=== PATIENT | female | born 1970 | race Caucasian/White ===

== ENCOUNTER 2020-05-24 16:00 | Outpatient (REF) | payer OTHER, SELFPAY ==
[2020-05-24 17:05] LABS: Creatinine Urine 204.63 mg/dL; Microalbum/Creatinine Ratio Ur 5.8 ug/mg cr
[2020-05-24 17:08] LABS: Alanine Aminotransferase 24 U/L (0-31); Albumin Level 4.6 g/dL (3.5-5.0); Alkaline Phosphatase 45 U/L (39-117); Anion Gap 13 (12-20); Aspartate Amino Transferase 21 U/L (5-31); Bilirubin Total 0.7 mg/dL (0.0-1.0); Blood Urea Nitrogen 17 mg/dL (9-16); Calcium 9.3 mg/dL (8.4-10.2); Carbon Dioxide 28 mmol/L (22-29); Chloride 103 mmol/L (96-108); Estimated Glomerular Filt Rate > 60; Glucose Random 84 mg/dL (60-115); Potassium 3.5 mmol/l (3.3-5.1); Sodium 140 mmol/L (135-145); Total Protein 7.6 g/dL (6.5-8.0)
== END 2020-05-24 16:01 | disposition home or self-care (01) ==
LOC: HO.LAB 16:00
PROVIDERS: PCP Family Medicine; Visit Provider Family Medicine
DX: I10 Essential (primary) hypertension (principal)
CPT/HCPCS: 80053; 82043

== ENCOUNTER 2020-12-01 14:09 | Outpatient (REF) | payer BC, SELFPAY ==
[2020-12-01 15:28] LABS: Alanine Aminotransferase 16 U/L (0-31); Albumin Level 4.4 g/dL (3.5-5.0); Alkaline Phosphatase 44 U/L (39-117); Anion Gap 12 (12-20); Aspartate Amino Transferase 16 U/L (5-31); Bilirubin Total 0.7 mg/dL (0.0-1.0); Blood Urea Nitrogen 14 mg/dL (9-16); Calcium 9.2 mg/dL (8.4-10.2); Carbon Dioxide 29 mmol/L (22-29); Chloride 104 mmol/L (96-108); Cholesterol 189 mg/dL; Estimated Glomerular Filt Rate > 60; Glucose Fasting 86 mg/dL (60-99); HDL Cholesterol 50 mg/dL; LDL Cholesterol Calculated 121 mg/dl; Potassium 3.6 mmol/L (3.3-5.1); Sodium 141 mmol/L (135-145); Total Protein 7.1 g/dL (6.5-8.0); Triglycerides 92 mg/dL
[2020-12-01 15:29] LABS: Creatinine Urine 155.72 mg/dL; Microalbum/Creatinine Ratio Ur 3.8 ug/mg cr
[2020-12-01 15:49] LABS: TSH reflex Free T4 < 0.01 uIU/mL (0.32-4.0)
[2020-12-01 16:26] LABS: Free T4 (Free Thyroxine) 0.88 ng/dL (0.71-1.85)
== END 2020-12-01 14:10 | disposition home or self-care (01) ==
LOC: HO.LAB 14:09
PROVIDERS: PCP Family Medicine; Visit Provider Family Medicine
DX: Z00.00 Encounter for general adult medical examination without abnormal findings (principal); I10 Essential (primary) hypertension
CPT/HCPCS: 36415; 80053; 80061; 82043; 84439; 84443

== ENCOUNTER 2021-01-10 14:35 | Outpatient (REF) | payer BC, SELFPAY ==
[2021-01-10 17:02] LABS: Vitamin D 25-OH Total 20.4 ng/mL (>30)
== END 2021-01-10 14:36 | disposition home or self-care (01) ==
LOC: HO.HMGCLDS 14:35
PROVIDERS: PCP Family Medicine; Visit Provider Family Medicine
DX: E55.9 Vitamin D deficiency, unspecified (principal)
CPT/HCPCS: 36415; 82306

== ENCOUNTER → 2021-01-18 07:02 | Outpatient (REF) | payer BC, SELFPAY ==
--- NOTE | 2021-01-18 07:07 | CA_ITS ---
Transthoracic Echocardiogram Patient (Last, First, Middle): Rosa Owens, Gender: Female Date of : 1970 Age: 50 Procedure Date: 01/18/2021 Procedure Type: Transthoracic Echocardiogram Location: OP Height: 165.1 cm Weight: 80.29 kg BSA: 1.88 m2 Heart Rate: bpm BP: 140 / 82 mmHg Commissioner Of Officials: KARINA Singh MD: Lupillo Pineda DO Symptoms: R00.2 - Palpitations Study Quality: Fair ECG Rhythm: Sinus Conclusions: - The left ventricular systolic function is normal. The visually estimated ejection fraction is between 60-65%. - No obvious valvular pathology seen on this study. Findings Left Ventricle Normal left ventricular cavity size. There is normal left ventricular wall thickness. The left ventricular systolic function is normal. The visually estimated ejection fraction is between 60-65%. There is no evidence of regional wall motion abnormalities. Diastolic function is normal for age. Right Ventricle Normal right ventricular cavity size and systolic function. Atria Both atria are normal in size. Aortic Valve There is a normal trileaflet aortic valve. There is no aortic valve stenosis. There is no aortic valve regurgitation. Mitral Valve The mitral valve appears normal. There is trace mitral valve regurgitation. There is no mitral valve stenosis. Pulmonic Valve The pulmonic valve is likely normal. Tricuspid Valve Normal tricuspid valve structure. There is trace tricuspid valve regurgitation. The pulmonary artery systolic pressure is normal. Great Vessels The aortic annulus, sinuses of valsalva, asc aorta, and aortic arch are normal in size. Venous The inferior vena cava is normal in size and collapses greater than 50% with inspiration. Pericardium/Pleural There is no evidence of pericardial effusion. Prior Study Comparison No prior study available for comparison. Recommendations, Care & Conclusions No obvious valvular pathology seen on this study. Measurements 2D Linear Measurements IVSd: 0.93 0.6-0.9/0.6-1.0 cm LVIDd: 4.47 3.9-5.3/4.2-5.9 cm LVIDd Index: 2.38 2.4-3.2/2.2-3.1 cm/m2 LVIDs: 2.99 2.0-3.6 cm LVPWd: 0.98 0.7-1.1 cm Ao Root: 3.10 2.1-3.5 cm LA Diam: 3.70 2.7-3.8/3.0-4.0 cm LAIDs Index: 1.97 1.5-2.3 cm/m2 LV Mass: 176.94 67-162/88-224 g LV Mass Index: 94.12 43-95/49-115 g/m2 LVOT Diam: 2.00 3.0+(-)1.3 cm 2D Systolic Function EF 4C: 62.10 >55% EF 2C: 68.90 >55% EF BiP: 65.60 >55% Mitral Valve MV Pk E: 0.86 MV PK A: 0.77 MV Decel Time: 223.00 E/A: 1.10 E'Lateral: 16.00 E'Medial: 10.30 E/E' Med: 8.30 E/E' Lat: 5.40 PHT: 65.00 MVA PHT: 3.38 Decel [place]: 3.84 Aortic Valve AoV Pk Russell: 1.51 AoV Mn Russell: 1.01 AoV VTI: 0.33 AoV Pk Grad: 9.00 Aov Mn Grad: 4.00 GOLDY Cont.VTI: 2.10 LVOT LVOT Pk Russell: 1.03 LVOT Mn Russell: 0.66 LVOT VTI: 0.22 LVOT Pk Grad: 4.00 LVOT Mn Grad: 2.00 LVOT Diam: 2.00 LVOT Area: 3.14 Diastolic Function MV Pk E: 0.86 MV Pk A: 0.77 E/A: 1.10 E'Medial: 10.30 E/E' Med: 8.30 E' Laterial: 16.00 E/E' Lat: 5.40 Right Ventricle TAPSE (mm): 2.40 Tricuspid Valve TR Pk Russell: 2.47 TR Pk Grad: 24.00 RA Press: 3.00 RVSP: 27.00 Great Vessels Aorta Ao Root-2D: 3.10 2.0-3.7 cm Ao Asc: 2.90 2.1-3.4 cm Ao Arch: 2.70 Updated in Other Vendor System with Status of Final Heriberto Lopez MD electronically signed on 01/20/2021 12:48:33 PM with status of Final
== END ==
LOC: HO.CARD 07:02
PROVIDERS: Visit Provider Hospitalist
DX: R00.2 Palpitations (principal)
CPT/HCPCS: 93306

== ENCOUNTER → 2021-01-25 11:14 | Outpatient (REF) | payer BC, SELFPAY ==
--- NOTE | 2021-01-25 11:17 | HM_ITS ---
Total monitoring. 4days and 3 hours. Underlying rhythm sinus. Minimum heart rate 54/Min. Maximum 130/Min. Average 76/Min. Only 6% rates above 100/Min. No atrial fibrillation or flutter. No AV blocks. No pauses. No ventricular tachycardia. Two supraventricular episodes, longest 11 beats. Rare PVCs at 1.3% burden. One morphology. Rare PACs at 0.07%. No patient events. MTDD
== END ==
LOC: HO.CARD 11:14
PROVIDERS: Visit Provider Nurse Practitioner Family
DX: R00.2 Palpitations (principal)
CPT/HCPCS: 93242

== ENCOUNTER → 2021-02-20 13:52 | Outpatient (BNVA) | payer BC, SELFPAY | PROVIDERS: PCP Family Medicine; Visit Provider Internal Medicine ==

== ENCOUNTER 2021-04-30 16:18 | Outpatient (REF) | payer BC, SELFPAY ==
--- NOTE | ~2021-04-30 | MM_ITS ---
EXAMINATION: MM SCREENING DIGITAL BREAST TOMOSYNTHESIS, BILATERAL CLINICAL INFORMATION: Screening. Asymptomatic. The lifetime risk of breast cancer based on the Tyrer-Cuzick Model is 12%. COMPARISON: Mammography: 01/20/2020, 01/14/2019, 01/08/2018 TECHNIQUE: Digital breast tomosynthesis is performed in both the craniocaudal and mediolateral oblique views along with computer-aided detection (CAD). Synthesized 2D images are generated from the tomosynthesis. FINDINGS: There are scattered areas of fibroglandular density (ACR BI-RADS breast composition Category b). There are no significant masses, abnormal calcifications, or other abnormalities. Fibroglandular distribution is similar to prior studies. No developing density or interval architectural abnormality. Skin contours are smooth. No significant changes. MM/MM tomosynthesis screening BI IMPRESSION: No mammographic evidence of malignancy. ASSESSMENT: BI-RADS 1: Negative RECOMMENDATION: Routine annual mammography screening. This patient's information was entered into a reminder system with a target due date for their next mammogram.
== END 2021-04-30 16:19 | disposition home or self-care (01) ==
LOC: HO.MAMMO 16:18
PROVIDERS: Visit Provider Family Medicine
DX: Z12.31 Encounter for screening mammogram for malignant neoplasm of breast (principal)
CPT/HCPCS: 77063; 77067

== ENCOUNTER 2022-02-14 13:40 | Outpatient (REF) | payer OTHER, SELFPAY ==
[2022-02-14 13:51] LABS: MANUAL DIFF FLAG NO
[2022-02-14 14:39] LABS: Basophils Absolute Auto 0.1 X10*3/uL (0.0-0.2); Basophils Percent Auto 0.7 % (0-2); Eosinophils Absolute Auto 0.2 X10*3/uL (0.0-0.4); Hematocrit 37.2 % (37.0-47.0); Hemoglobin 12.8 g/dl (12.0-16.0); Imm Gran Abs Auto 0.02 X10*3/uL (0.00-0.03); Imm Gran Pct Auto 0.3 % (0.0-0.4); Lymphocytes Absolute Auto 2.6 X10*3/uL (1.2-4.9); Lymphocytes Percent Auto 37.8 % (20-40); Mean Corpuscular HGB Conc 34.4 g/dl (31.0-35.0); Mean Corpuscular Hemoglobin 30.1 pg (27.0-33.0); Mean Corpuscular Volume 87.5 fL (80.0-98.0); Mean Platelet Volume 10.6 fL (9.4-12.3); Monocytes Absolute Auto 0.4 X10*3/uL (0.1-1.2); Monocytes Percent Auto 5.9 % (2-11); Neutrophils Absolute Auto 3.7 x10*3/uL (2.0-8.3); Neutrophils Percent Auto 52.3 % (45-73); Platelet Count 179 X10*3/uL (160-400); Red Blood Count 4.25 X10*6/uL (4.20-5.50); Red Cell Distribution Width 12.6 % (11.0-16.0)
[2022-02-14 15:47] LABS: Alanine Aminotransferase 19 U/L (0-31); Albumin Level 4.2 g/dL (3.5-5.0); Alkaline Phosphatase 49 U/L (39-117); Anion Gap 15 (12-20); Aspartate Amino Transferase 20 U/L (5-31); Bilirubin Total 0.8 mg/dL (0.0-1.0); Blood Urea Nitrogen 13 mg/dL (9-16); Carbon Dioxide 25 mmol/L (22-29); Chloride 101 mmol/L (96-108); Cholesterol 208 mg/dL; Estimated Glomerular Filt Rate > 60; Glucose Fasting 77 mg/dL (60-99); HDL Cholesterol 48 mg/dL; LDL Cholesterol Calculated 140 mg/dl; Potassium 3.4 mmol/L (3.3-5.1); Sodium 138 mmol/L (135-145); Total Protein 7.1 g/dL (6.5-8.0); Triglycerides 101 mg/dL
[2022-02-14 16:08] LABS: TSH reflex Free T4 0.09 uIU/mL (0.32-4.0)
[2022-02-14 16:47] LABS: Free T4 (Free Thyroxine) 0.87 ng/dL (0.71-1.85)
[2022-02-14 17:29] LABS: Appearance Urine Clear; Color Urine Yellow; Glucose Urine UA Negative (Negative); Leukocyte Esterase Urine Trace (Negative); Nitrite Urine Negative (Negative); PH 6.5 (5.0-8.0); Urine Blood Trace (Negative); Urine Ketones Negative (Negative); Urine Protein Negative (Neg-Trace)
[2022-02-14 17:31] LABS: Microalbumin Urine < 5.0 mg/L
[2022-02-14 18:23] LABS: Bacteria Urine 1+ (None Seen); Hyaline Casts Urine 0-2 /LPF (0-2); WBC Urine 0-5 /HPF (0-5)
== END 2022-02-14 13:41 | disposition home or self-care (01) ==
LOC: HO.LAB 13:40
PROVIDERS: Visit Provider Family Medicine
DX: Z00.00 Encounter for general adult medical examination without abnormal findings (principal); E55.9 Vitamin D deficiency, unspecified; I10 Essential (primary) hypertension
CPT/HCPCS: 36415; 80053; 80061; 81001; 82043; 82306; 84439; 84443; 85025

== ENCOUNTER 2022-05-02 15:43 | Outpatient (REF) | payer OTHER, SELFPAY ==
--- NOTE | ~2022-05-02 | MM_ITS ---
EXAMINATION: MM SCREENING DIGITAL BREAST TOMOSYNTHESIS, BILATERAL CLINICAL INFORMATION: Screening. Asymptomatic. COMPARISON: Mammography: 04/30/2021, 01/20/2020, 01/14/2019 TECHNIQUE: Digital breast tomosynthesis is performed in both the craniocaudal and mediolateral oblique views along with computer-aided detection (CAD). Synthesized 2D images are generated from the tomosynthesis. FINDINGS: There are scattered areas of fibroglandular density (ACR BI-RADS breast composition Category b). There are no significant masses, abnormal calcifications, or other abnormalities. There are scattered minor asymmetries similar to prior studies. No developing density or architectural abnormality. The axilla and skin contours are unremarkable. No significant changes. MM/MM tomosynthesis screening BI IMPRESSION: No mammographic evidence of malignancy. ASSESSMENT: BI-RADS 2: Benign RECOMMENDATION: Routine annual mammography screening. This patient's information was entered into a reminder system with a target due date for their next mammogram.
== END 2022-05-02 15:44 | disposition home or self-care (01) ==
LOC: HO.MAMMO 15:43
PROVIDERS: PCP Family Medicine; Visit Provider Family Medicine
DX: Z12.31 Encounter for screening mammogram for malignant neoplasm of breast (principal)
CPT/HCPCS: 77063; 77067

== ENCOUNTER 2023-01-10 13:14 | Outpatient (REF) | payer OTHER, SELFPAY ==
[2023-01-10 14:04] LABS: Basophils Percent Auto 0.5 % (0-2); Eosinophils Absolute Auto 0.3 X10*3/uL (0.0-0.4); Eosinophils Percent Auto 4.5 % (0-4); Hematocrit 37.5 % (37.0-47.0); Hemoglobin 12.2 g/dl (12.0-16.0); Imm Gran Abs Auto 0.01 X10*3/uL (0.00-0.03); Imm Gran Pct Auto 0.2 % (0.0-0.4); Lymphocytes Absolute Auto 2.2 X10*3/uL (1.2-4.9); Lymphocytes Percent Auto 33.8 % (20-40); MANUAL DIFF FLAG NO; Mean Corpuscular HGB Conc 32.5 g/dl (31.0-35.0); Mean Corpuscular Hemoglobin 28.9 pg (27.0-33.0); Mean Corpuscular Volume 88.9 fL (80.0-98.0); Mean Platelet Volume 10.9 fL (9.4-12.3); Monocytes Absolute Auto 0.5 X10*3/uL (0.1-1.2); Monocytes Percent Auto 6.9 % (2-11); Neutrophils Absolute Auto 3.5 x10*3/uL (2.0-8.3); Neutrophils Percent Auto 54.1 % (45-73); Platelet Count 171 X10*3/uL (160-400); Red Blood Count 4.22 X10*6/uL (4.20-5.50); Red Cell Distribution Width 12.7 % (11.0-16.0); White Blood Count 6.5 X10*3/uL (4.8-10.8)
[2023-01-10 14:08] LABS: Appearance Urine Clear; Color Urine Yellow; Glucose Urine UA Negative (Negative); Leukocyte Esterase Urine Small (1+) (Negative); Nitrite Urine Negative (Negative); Specific Gravity - Urine >= 1.030 (1.005-1.025); UMIC TRIGGER UA YES; Urine Blood Moderate (2+) (Negative); Urine Ketones Negative (Negative); Urine Protein Negative (Neg-Trace)
[2023-01-10 14:27] LABS: Creatinine Urine 244.76 mg/dL; Microalbum/Creatinine Ratio Ur 5.7 ug/mg cr
[2023-01-10 14:31] LABS: Bacteria Urine 3+ (None Seen); Hyaline Casts Urine 0-2 /LPF (0-2); RBC Urine >20 /HPF (0-2); Squamous Epithelial Cell Urine >20 /HPF (0-2)
[2023-01-10 14:40] LABS: Alanine Aminotransferase 36 U/L (0-31); Alkaline Phosphatase 62 U/L (39-117); Anion Gap 9 (12-20); Aspartate Amino Transferase 25 U/L (5-31); Bilirubin Total 0.9 mg/dL (0.0-1.0); Blood Urea Nitrogen 16 mg/dL (9-16); Calcium 10.1 mg/dL (8.4-10.2); Carbon Dioxide 27 mmol/L (22-29); Chloride 109 mmol/L (96-108); Cholesterol 94 mg/dL; Estimated Glomerular Filt Rate > 60; Glucose Fasting 88 mg/dL (60-99); HDL Cholesterol 45 mg/dL; LDL Cholesterol Calculated 39 mg/dl; Potassium 4.4 mmol/L (3.3-5.1); Sodium 141 mmol/L (135-145); Total Protein 6.8 g/dL (6.5-8.0); Triglycerides 53 mg/dL
== END 2023-01-10 13:15 | disposition home or self-care (01) ==
LOC: HO.LAB 13:14
PROVIDERS: PCP Family Medicine; Visit Provider Family Medicine
DX: Z00.00 Encounter for general adult medical examination without abnormal findings (principal); I10 Essential (primary) hypertension; I21.9 Acute myocardial infarction, unspecified; E78.2 Mixed hyperlipidemia
CPT/HCPCS: 36415; 80053; 80061; 81001; 82043; 85025

== ENCOUNTER 2023-01-21 15:47 | Outpatient (AMB) | payer OTHER, SELFPAY ==
--- NOTE | 2023-01-21 16:07 | A.OFFPC_ITS ---
Vital Signs 01/21/23 16:11 Height 5 ft 5 in Weight 175 lb BMI 29.1 BP 110/64 Blood Pressure Location Lt brachial Position Sitting Pulse 66 Pulse Source Pulse Oximeter Pulse Oximetry (%) 98 Intake Visit Reasons: f/u HLD Intake Note: pt is here for fu HLD Leader Assembler Required: No Accompanied by: Self / Same As Patient Allergies ampicillin [AMPICILLIN] Allergy (Unknown, Verified 01/21/23 16:07) UNKNOWN, hives erythromycin base [ERYTHROMYCIN BASE] Allergy (Unknown, Verified 01/21/23 16:07) UNKNOWN Penicillins [PENICILLINS] Allergy (Unknown, Verified 01/21/23 16:07) UNKNOWN Sulfa (Sulfonamide Antibiotics) [SULFA (SULFONAMIDE ANTIBIOTICS)] Allergy (Unknown, Verified 01/21/23 16:07) UNKNOWN, rash Erythromycin Allergy (Unknown, Uncoded 10/23/22 16:21) rash Tobacco use date assessed: 01/21/23 Dental Screening Dental Screen Date: 01/21/23 Did you have a dental visit in the last 12 months?: Yes Did you have a dental problem in the last 6 months where you did not have access to dental care?: No Was dental information given to patient?: Patient has dentist HPI f/u HLD HPI Details 52 y/o female presents to f/u HLD. Hx of AK. Blood pressure today 110/64. She is on metoprolol 50mg b.i.d., Entresto. She is no longer on lisinopril. Labs were drawn 01/10/23. Reviewed labs with pt. Triglycerides 53. TC 94. LDL 39. HDL 45. ALT elevated at 36. 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 Alan Srinivasan, Maile Mar, Pablo Rose and colleagues, with an educational pee from [employer]. Physical exam (Primary Care) Vital Signs: Last Vital Signs Pulse 66 01/21/23 16:11 BP 110/64 01/21/23 16:11 Pulse Ox 98 01/21/23 16:11 BMI result Body Mass Index 29.1 Tobacco/Smoking Status: Tobacco use Status Tobacco use date assessed 01/21/23 01/21/23 16:08 Patient Tobacco Use Status Never used Tobacco 01/21/23 16:08 e-Cigarette/Vaping Use Never Used 01/21/23 16:08 Thrive Assessment: Date of Thrive Assessment Date Thrive assessed 11/16/21 01/21/23 16:08 Assessment and Plan Assessment & Plan (1) Essential hypertension: Code(s): I10 - Essential (primary) hypertension Plan: Blood pressure is well controlled. Goal is less than 130/80 for patient with coronary artery disease Continue current medication regimen She is no longer on lisinopril so I have remove this from her med list (2) Hypercholesterolemia: Code(s): E78.00 - Pure hypercholesterolemia, unspecified Plan: Lipids are well controlled. LDL is at goal of less than 70 Continue atorvastatin (3) Coronary artery disease: Code(s): I25.10 - Atherosclerotic heart disease of [place] coronary artery without angina pectoris Plan: Continue aspirin, atorvastatin and Brilinta Continue blood pressure control Follow-up with Cardiology as recommended (4) Mixed hyperlipidemia: Code(s): E78.2 - Mixed hyperlipidemia Plan: As above, lipids are controlled continue atorvastatin (5) Elevated ALT measurement: Code(s): R74.01 - Elevation of levels of liver transaminase levels Plan: ALT 36; borderline We can follow-up on this at a subsequent visit (6) Bacteriuria: Code(s): R82.71 - Bacteriuria Plan: Likely bacteriuria but patient does note some symptoms of dysuria. This may be secondary to cut treated urine. Will send script for nitrofurantoin and she will hold off on this while she hydrates well. If not improving she can start empiric treatment tomorrow Medications: New nitrofurantoin macrocrystal must administer with a meal/food 100 mg PO Q12H 14 caps 0RF 7 days Discontinued lisinopril Discontinued Reason: Patient no longer taking 20 mg PO DAILY 90 tabs 3RF Coding Level of Care Code Est Pt Level 4 (83545) Diagnoses Essential hypertension I10 Hypercholesterolemia E78.00 Coronary artery disease I25.10 Mixed hyperlipidemia E78.2 Elevated ALT measurement R74.01 Bacteriuria R82.71
[2023-01-21 16:11] VITALS: BP 110/64; PULSE 66; O2SAT 98; BMI 29.1
== END 2023-01-21 16:48 | disposition home or self-care (01) ==
PROVIDERS: Visit Provider Family Medicine
DX: I10 Essential (primary) hypertension (principal); E78.00 Pure hypercholesterolemia, unspecified; I25.10 Atherosclerotic heart disease of native coronary artery without angina pectoris; E78.2 Mixed hyperlipidemia; R74.01 Elevation of levels of liver transaminase levels; R82.71 Bacteriuria
CPT/HCPCS: 99214

== ENCOUNTER 2023-01-28 15:08 | Outpatient (REF) | payer OTHER, SELFPAY ==
[2023-01-28 16:05] LABS: Appearance Urine Clear; Color Urine Yellow; Glucose Urine UA Negative (Negative); Leukocyte Esterase Urine Negative (Negative); Nitrite Urine Negative (Negative); UMIC TRIGGER UA YES; Urine Blood Small (1+) (Negative); Urine Ketones Negative (Negative); Urine Protein Negative (Neg-Trace)
[2023-01-28 16:14] LABS: Bacteria Urine Trace (None Seen); Hyaline Casts Urine 0-2 /LPF (0-2); Squamous Epithelial Cell Urine 0-2 /HPF (0-2); WBC Urine 0-5 /HPF (0-5)
== END 2023-01-28 15:09 | disposition home or self-care (01) ==
LOC: HO.LAB 15:08
PROVIDERS: PCP Family Medicine; Visit Provider Family Medicine
DX: R39.9 Unspecified symptoms and signs involving the genitourinary system (principal)
CPT/HCPCS: 81001; 81003; 87086

== ENCOUNTER 2023-05-13 15:58 | Outpatient (REF) | payer OTHER, SELFPAY ==
--- NOTE | ~2023-05-13 | MM_ITS ---
EXAMINATION: MM SCREENING DIGITAL BREAST TOMOSYNTHESIS, BILATERAL CLINICAL INFORMATION: Screening. Asymptomatic. COMPARISON: Mammography: 05/02/2022, 04/30/2021, 01/20/2020, 01/14/2019 TECHNIQUE: Digital breast tomosynthesis is performed in both the craniocaudal and mediolateral oblique views along with computer-aided detection (CAD). Synthesized 2D images are generated from the tomosynthesis. FINDINGS: There are scattered areas of fibroglandular density (ACR BI-RADS breast composition Category b). There are no suspicious masses, suspicious grouped calcifications, or areas of architectural distortion in either breast. The parenchymal pattern is stable from prior exams. There are scattered minor asymmetries bilaterally, similar to prior studies and benign. No skin or axillary abnormality. MM/MM tomosynthesis screening BI IMPRESSION: No mammographic evidence of malignancy. ASSESSMENT: BI-RADS BI-RADS 2 - Benign Findings RECOMMENDATION: Routine annual mammography screening. 1 year F/U This examination should not preclude the clinical evaluation of a suspicious palpable abnormality. This patient's information was entered into a reminder system with a target due date for their next mammogram.
== END 2023-05-13 15:59 | disposition home or self-care (01) ==
LOC: HO.MAMMO 15:58
PROVIDERS: PCP Family Medicine; Visit Provider Family Medicine
DX: Z12.31 Encounter for screening mammogram for malignant neoplasm of breast (principal)
CPT/HCPCS: 77063; 77067

== ENCOUNTER → 2023-05-13 16:30 | Outpatient (BNV) | payer OTHER, SELFPAY | PROVIDERS: PCP Family Medicine; Visit Provider Radiology Diagnostic Radiology | DX: Z12.31 Encounter for screening mammogram for malignant neoplasm of breast (principal) | CPT/HCPCS: 77063; 77067 ==

== ENCOUNTER 2023-07-02 16:09 | Outpatient (AMB) | payer OTHER, SELFPAY ==
[2023-07-02 16:15] VITALS: BP 112/64; PULSE 74; O2SAT 99; BMI 29.8
--- NOTE | 2023-07-02 16:15 | A.OFFPC_ITS ---
Vital Signs 07/02/23 16:15 Height 5 ft 5 in Weight 179 lb BMI 29.8 BP 112/64 Blood Pressure Location Lt brachial Position Sitting Pulse 74 Pulse Source Pulse Oximeter Pulse Oximetry (%) 99 Oxygen Delivery Method Room Air Intake Visit Reasons: f/u HLD Intake Note: Patient is here to follow up on HLD cholesterol. Allergies ampicillin [AMPICILLIN] Allergy (Unknown, Verified 07/02/23 16:19) UNKNOWN, hives erythromycin base [ERYTHROMYCIN BASE] Allergy (Unknown, Verified 07/02/23 16:19) UNKNOWN Penicillins [PENICILLINS] Allergy (Unknown, Verified 07/02/23 16:19) UNKNOWN Sulfa (Sulfonamide Antibiotics) [SULFA (SULFONAMIDE ANTIBIOTICS)] Allergy (Unknown, Verified 07/02/23 16:19) UNKNOWN, rash Erythromycin Allergy (Unknown, Uncoded 07/02/23 16:19) rash Tobacco use date assessed: 07/02/23 HPI f/u HLD HPI Details 53 y/o female presents to f/u hyperlipid emia and hypertension. Pt reports she had labs drawn in March. Blood pressure today 112/64. She is on metoprolol 25mg daily and Entresto 1 tab b.i.d. 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 Alan Srinivasan, Maile Mar, Pablo Rose and colleagues, with an educational pee from [employer]. Review of Systems Const Denies chills, Denies fatigue, Denies fever(s), Denies headache(s) and Denies weakness ENT Denies dizziness and Denies headache(s) Card Denies chest pain, Denies lightheadedness, Denies dyspnea and Denies other (Palpitations) Resp Denies cough, Denies dyspnea, Denies wheezing and Denies other ( shortness of breath) Musc Denies numbness and Denies tingling Neuro Denies dizziness, Denies headache(s), Denies numbness, Denies tingling, Denies paresthesias and Denies weakness Psych Denies anxiety and Denies depression Endo Denies fatigue Aller/Immun Denies wheezing Physical exam (Primary Care) Vital Signs: Last Vital Signs Pulse 74 07/02/23 16:15 BP 112/64 07/02/23 16:15 Pulse Ox 99 07/02/23 16:15 Oxygen Delivery Method Room Air 07/02/23 16:15 BMI result Body Mass Index 29.8 Tobacco/Smoking Status: Tobacco use Status Tobacco use date assessed 07/02/23 07/02/23 16:22 Patient Tobacco Use Status Never used Tobacco 07/02/23 16:17 e-Cigarette/Vaping Use Never Used 07/02/23 16:17 Thrive Assessment: Date of Thrive Assessment Date Thrive assessed 11/16/21 07/02/23 16:17 Const General: no acute distress and well developed Nutritional Appearance: well nourished Orientation/consciousness: patient oriented x3 HENMT Head: Yes normocephalic and Yes atraumatic Eyes General: appearance normal, both eyes and all related structures Pupils: Equal, round and reactive pupils present EOM: EOMs intact bilaterally Resp Effort & Inspection: normal respiratory effort Auscultation: clear to auscultation bilaterally Cardio Rate: regular rate Rhythm: regular rhythm Heart sounds: S1 normal heart sound present, S2 normal heart sound present, no gallops, no murmurs and no rubs Neuro General: patient oriented x3 and gait normal Cranial nerves: Yes Equal, round and reactive pupils present Psych Affect: normal affect Assessment and Plan Assessment & Plan (1) Essential hypertension: Code(s): I10 - Essential (primary) hypertension Plan: Blood?pressure?is?well?c ontrolled.??Goal?is?less?than?130/90?for?patient?with?coronary?artery?disease Continue?current?medication?regimen (2) Mixed hyperlipidemia: Code(s): E78.2 - Mixed hyperlipidemia Plan: Patient?had?lab?work?from?[facility]?and?she?will?forward?this?to?us Her?LDL?cholesterol?is?47?and?HDL?is?over?40. She?is?on?atorvastatin?80?mg?daily Good?control.??Continue?current?medication (3) Coronary artery disease: Code(s): I25.10 - Atherosclerotic heart disease of [place] coronary artery without angina pectoris Plan: History?of?coronary?artery?disease?with?stents?and?she?is?on?aspirin,?atorv astatin?and?Brilinta Stable Follow-up?with?Cardiology?as?recommended (4) Hyperthyroidism: Code(s): E05.90 - Thyrotoxicosis, unspecified without thyrotoxic crisis or storm Plan: Hyperthyroidism?and?she?had?been?on?methimazole. TSH?was?low?and?her?behavioral services tech?recently?held?that. Follow-up?with?endocrinology?as?recommended Orders: Orders Comprehensive [place]. Panel Fast Today R74.01 - Elevation of levels of liver transaminase levels, Z00.00 - Encounter for general adult medical examination without abnormal findings Lipid Panel Today E78.2 - Mixed hyperlipidemia, Z00.00 - Encounter for general adult medical examination without abnormal findings Triiodothyronine T3 Total Today E03.9 - Hypothyroidism, unspecified, E05.90 - Thyrotoxicosis, unspecified without thyrotoxic crisis or storm Free T4 (Free Thyroxine) Today E03.9 - Hypothyroidism, unspecified, E05.90 - Thyrotoxicosis, unspecified without thyrotoxic crisis or storm Vitamin D 25-OH Total Today E55.9 - Vitamin D deficiency, unspecified Microalbumin, Random (w Creat) Today I10 - Essential (primary) hypertension Thyroid Stimulating Hormone Today E03.9 - Hypothyroidism, unspecified, E05.90 - Thyrotoxicosis, unspecified without thyrotoxic crisis or storm Coding Level of Care Code Est Pt Level 4 (58669) Diagnoses Essential hypertension I10 Mixed hyperlipidemia E78.2 Coronary artery disease I25.10 Hyperthyroidism E05.90
== END 2023-07-02 17:21 | disposition home or self-care (01) ==
PROVIDERS: PCP Family Medicine; Visit Provider Family Medicine
DX: I10 Essential (primary) hypertension (principal); E78.2 Mixed hyperlipidemia; I25.10 Atherosclerotic heart disease of native coronary artery without angina pectoris; E05.90 Thyrotoxicosis, unspecified without thyrotoxic crisis or storm
CPT/HCPCS: 99214

== ENCOUNTER 2023-07-23 15:07 | Outpatient (AMB) | payer OTHER, SELFPAY ==
--- NOTE | 2023-07-23 15:13 | MHC.OFFVIS ---
Intake Vital Signs 07/23/23 15:14 Height 5 ft 5 in Weight 178 lb BMI 29.6 BP 125/67 Blood Pressure Location Lt brachial Position Sitting Pulse 68 Intake Visit Reasons: Colonoscopy Screening Shredded Filler Hopper Feeder Required: No Allergies ampicillin [AMPICILLIN] Allergy (Unknown, Verified 07/23/23 15:13) UNKNOWN, hives erythromycin base [ERYTHROMYCIN BASE] Allergy (Unknown, Verified 07/23/23 15:13) UNKNOWN Penicillins [PENICILLINS] Allergy (Unknown, Verified 07/23/23 15:13) UNKNOWN Sulfa (Sulfonamide Antibiotics) [SULFA (SULFONAMIDE ANTIBIOTICS)] Allergy (Unknown, Verified 07/23/23 15:13) UNKNOWN, rash Erythromycin Allergy (Unknown, Uncoded 07/02/23 16:19) rash HPI Colonoscopy Screening HPI Details 53 year old? female with hyperlipidemia, mi, Pac, PVC, hypertension, history of low EF, neuromodulated with Entresto, history of aortic dissection in April of 2022 is here today for pre colonoscopy screening.? Patient was sent to us by her PCP.? This is her first colonoscopy screening.? Patient denies any gastrointestinal symptoms in the past or at present.? Denies any personal or family history of gastrointestinal disease, colon polyps, or cancer.? Denies history of difficulty with sedation or anesthesia in the past.? Negative for history of sleep apnea.? Denies any history of cardiac, renal, pulmonary, or hepatic disease.?? No history of infectious? diseases like hepatitis A, B, C, HIV or tuberculosis.? Patient is on Brilinta and aspirin. She has been on Brilinta since April of 2022. History of aortic dissection as mentioned above. Patient has access control specialist in [place] and has appointment with him on Friday. 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/hazards: No Cognitive needs: No Hearing needs: No Vision needs: Yes Review of Systems Const Denies weight gain and Denies weight loss ENT Reports no additional complaints, Denies dysphagia and Denies odynophagia Card Reports no additional complaints Resp Reports no additional complaints GI Denies abdominal pain, Denies belching, Denies melena, Denies bloating, Denies change in bowel habits, Denies dysphagia, Denies excessive flatus, Denies dyspepsia, Denies heartburn, Denies diarrhea, Denies loose stools, Denies nausea, Denies odynophagia and Denies vomiting Musc Reports no additional complaints Neuro Reports no additional complaints Psych Reports no additional complaints Endo Reports no additional complaints Physical Exam Vital Signs: Last Vital Signs Pulse 68 07/23/23 15:14 BP 125/67 07/23/23 15:14 BMI result Body Mass Index 29.6 Const General: healthy appearing, no acute distress and well developed Nutritional Appearance: well nourished Orientation/consciousness: patient oriented x3 Resp Effort & Inspection: normal respiratory effort, able to speak in complete sentences, no tracheal deviation and symmetric chest movement Auscultation: clear to auscultation bilaterally Cardio Rate: regular rate GI Inspection: Yes normal to inspection and No distended Palpation (GI): Soft to palpation, not firm, nontender and No hepatosplenomegaly present Auscultation: normal bowel sounds General: Yes no CVA tenderness Back/Spine/Pelvis Back: no CVA tenderness Skin General skin exam: elasticity normal, turgor normal and dry skin Neuro General: patient oriented x3 Psych Appearance: grossly normal Mental Status: mental status grossly normal Assessment & Plan Assessment & Plan (1) Screening for colon cancer: Code(s): Z12.11 - Encounter for screening for malignant neoplasm of colon Plan Patient denies any GI, cardiac or respiratory symptoms.? Denies any issues with anesthesia in the past.? Denies any history of sleep apnea.? No history infectious diseases in the past or present.? Patient is on Brilinta and aspirin. She has been on Brilinta since April of 2022. History of aortic dissection. Is following up with provider in [place]. Patient has cardiology appointment on Friday and will ask for clearance for the procedure. We will also ask for directions of when to stop and restart Brilinta. The office number is: [phone]?Dr. Kurtis Cruz. No family or personal history of colon cancer or polyps.? Patient denies melena, hematochezia, unintentional weight loss or ribbon like stools.? Discussed at length the pre-procedure,? prep, diet & medications as well as what to expect prior, during and after the procedure.?? Stressed the importance of good bowel prep. ?Recommended the use of Vaseline or Calmoseptine OTC & baby wipes with bowel movements to promote comfort.? ?Patient verbalizes understanding and agrees to plan of care.? She was given the opportunity to ask questions and all questions answered.? We will see her after the procedure.? Medications: New polyethylene glycol 3350 (Miralax) As directed by gastroenterology department at [facility] 238 grams PO ONCE 238 grams 0RF Z12.11 - Encounter for screening for malignant neoplasm of colon bisacodyl (Dulcolax (bisacodyl)) take 4 tabs at noon the day before your colonoscopy 20 mg (4 x 5 mg) PO ONCE 1 day 4 tabs 0RF Z12.11 - Encounter for screening for malignant neoplasm of colon Coding Level of Care Code New Pt Level 3 (41100) Diagnoses Screening for colon cancer Z12.11 Time Spent (min) 40 Comment 30 minutes spent with patient and additional 10 minutes spent reviewing her records
[2023-07-23 15:14] VITALS: BP 125/67; PULSE 68; BMI 29.6
== END 2023-07-23 15:46 | disposition home or self-care (01) ==
PROVIDERS: PCP Family Medicine; Referring Provider Family Medicine; Visit Provider Nurse Practitioner Family
DX: Z12.11 Encounter for screening for malignant neoplasm of colon (principal); Z01.818 Encounter for other preprocedural examination
CPT/HCPCS: 99203

== ENCOUNTER → 2023-07-23 15:07 | Outpatient (BNVA) | payer OTHER, SELFPAY | PROVIDERS: PCP Family Medicine; Referring Provider Family Medicine; Visit Provider Nurse Practitioner Family ==

== ENCOUNTER 2023-10-15 14:51 | Outpatient (REF) | payer OTHER, SELFPAY ==
[2023-10-15 15:42] LABS: Appearance Urine Cloudy; Color Urine Yellow; Glucose Urine UA Negative (Negative); Leukocyte Esterase Urine Moderate (2+) (Negative); Nitrite Urine Negative (Negative); PH 5.5 (5.0-9.0); Specific Gravity - Urine 1.015 (1.005-1.025); UMIC TRIGGER UA YES; Urine Blood Moderate (2+) (Negative); Urine Ketones Negative (Negative); Urine Protein Negative (Neg-Trace)
[2023-10-15 15:48] LABS: Bacteria Urine 1+ (None Seen); RBC Urine >20 /HPF (0-2); WBC Urine 21-50 /HPF (0-5)
[2023-10-15 16:17] LABS: Alanine Aminotransferase 24 U/L (0-31); Albumin Level 4.2 g/dL (3.5-5.0); Alkaline Phosphatase 65 U/L (39-117); Anion Gap 11 (12-20); Aspartate Amino Transferase 21 U/L (5-31); Bilirubin Total 0.8 mg/dL (0.0-1.0); Blood Urea Nitrogen 13 mg/dL (9-16); Calcium 9.4 mg/dL (8.4-10.2); Carbon Dioxide 26 mmol/L (22-29); Chloride 107 mmol/L (96-108); Cholesterol 115 mg/dL (<200); Estimated Glomerular Filt Rate > 60; Glucose Fasting 82 mg/dL (60-99); HDL Cholesterol 48 mg/dL (>40); LDL Cholesterol Calculated 52 mg/dL (<100); Potassium 4.1 mmol/L (3.3-5.1); Sodium 140 mmol/L (135-145); Total Protein 7.2 g/dL (6.5-8.0); Triglycerides 75 mg/dL (<150)
[2023-10-15 16:32] LABS: Free T4 (Free Thyroxine) 0.79 ng/dL (0.71-1.85); Thyroid Stimulating Hormone 0.16 uIU/mL (0.32-4.0); Vitamin D 25-OH Total 15.7 ng/mL (>30)
[2023-10-15 16:34] LABS: Creatinine Urine 144.25 mg/dL; Microalbum/Creatinine Ratio Ur 5.5 ug/mg cr (<30)
[2023-10-16 08:33] LABS: Triiodothyronine T3 Total 116 ng/dL (76-181)
== END 2023-10-15 14:52 | disposition home or self-care (01) ==
LOC: HO.LAB 14:51
PROVIDERS: PCP Family Medicine; Visit Provider Family Medicine
DX: Z00.00 Encounter for general adult medical examination without abnormal findings (principal); E78.2 Mixed hyperlipidemia; E03.9 Hypothyroidism, unspecified; E05.90 Thyrotoxicosis, unspecified without thyrotoxic crisis or storm; E55.9 Vitamin D deficiency, unspecified; R74.01 Elevation of levels of liver transaminase levels; R39.9 Unspecified symptoms and signs involving the genitourinary system; I10 Essential (primary) hypertension
CPT/HCPCS: 36415; 80053; 80061; 81001; 82043; 82306; 82570; 84439; 84443; 84480

== ENCOUNTER 2023-10-21 15:43 | Outpatient (AMB) | payer OTHER, SELFPAY ==
[2023-10-21 16:07] VITALS: BP 130/66; PULSE 66; O2SAT 100; BMI 30.3
--- NOTE | 2023-10-21 16:07 | A.OFFPC_ITS ---
Vital Signs 10/21/23 16:07 Height 5 ft 5 in Weight 182 lb BMI 30.3 BP 130/66 Blood Pressure Location Lt brachial Position Sitting Pulse 66 Pulse Source Pulse Oximeter Pulse Oximetry (%) 100 Intake Visit Reasons: CPE with f/u labs and health maint. Intake Note: Patient is here for her physical today. Allergies ampicillin [AMPICILLIN] Allergy (Unknown, Verified 10/21/23 16:08) UNKNOWN, hives erythromycin base [ERYTHROMYCIN BASE] Allergy (Unknown, Verified 10/21/23 16:08) UNKNOWN Penicillins [PENICILLINS] Allergy (Unknown, Verified 10/21/23 16:08) UNKNOWN Sulfa (Sulfonamide Antibiotics) [SULFA (SULFONAMIDE ANTIBIOTICS)] Allergy (Unknown, Verified 10/21/23 16:08) UNKNOWN, rash Erythromycin Allergy (Unknown, Uncoded 10/21/23 16:08) rash Medication List - Last Reconciled 10/21/23 by Steve Hernadez MD aspirin 325 mg PO DAILY atorvastatin 80 mg PO BEDTIME bisacodyl (Dulcolax (bisacodyl)) 20 mg (4 x 5 mg) PO ONCE 1 day lorazepam (Ativan) 0.5 mg PO DAILY PRN 4 days methimazole 5 mg PO DAILY metoprolol succinate ER 25 mg PO DAILY polyethylene glycol 3350 (Miralax) 238 grams PO ONCE sacubitril-valsartan 24-26 mg (Entresto) 1 tab PO BID Tobacco use date assessed: 10/21/23 Dental Screening Dental Screen Date: 10/21/23 Did you have a dental visit in the last 12 months?: Yes Did you have a dental problem in the last 6 months where you did not have access to dental care?: No Was dental information given to patient?: Patient has dentist HPI CPE with f/u labs and health maint. HPI Details 53 y/o female presents for a CPE with f/ u labs and health maintenance. Labs were drawn 10/15/23. Reviewed labs with pt. Low vitamin D level at 15.7. Triglycerides 75. TC 115. LDL 52. HDL 48. TSH low at 0.16. Blood in urine. She does not notice blood in her urine and denies any dysuria. She has a colonoscopy scheduled November 09. 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 1. Little interest or pleasure in doing things: not at all 2. Feeling down, depressed, or hopeless: not at all 3. Trouble falling or staying asleep, or sleeping too much: not at all 4. Feeling tired or having little energy: not at all 5. Poor appetite or overeating: not at all 6. Feeling bad about yourself - or that you are a failure or have let yourself or your family down: not at all 7. Trouble concentrating on things, such as reading the newspaper or watching television: not at all 8. Moving or speaking so slowly that other people could have noticed. Or the opposite - being so fidgety or restless that you have been moving around a lot more than usual: not at all 9. Thoughts that you would be better off or of hurting yourself in some way: not at all Total score: 0 Depression Screening Interpretation: Negative Depression Screening Done: Yes 97641 - PHQ-9 Billing: Yes Source: Developed by Drs. Alan Srinivasan, Maile Mar, Pablo Rose and colleagues, with an educational pee from [employer]. Thrive Questionnaire Date Thrive assessed: 10/21/23 I am a: Patient What is your living situation today?: I have a steady place to live Within the past 12 months, did the food you bought not last and you didn't have the money to get more?: Never true Within the past 12 months, did you worry whether your food would run out before you got money to buy more?: Never true Do you have trouble paying for medicines?: No Do you have trouble getting transportation to medical appointments?: No Do you have trouble paying your heating and electricity bill?: No Do you have trouble taking care of your child, family member or friend?: No Do you have trouble with day-to-day activities such as bathing, preparing meals, shopping, managing finances, etc.?: No Are you currently unemployed and looking for a job?: No Are you interested in more education?: No THRIVE Score: 0 AUDIT C Alcohol Use Questionnaire (AUDIT-C) 1. How often do you have a drink containing alcohol?: Monthly or less 2. How many drinks containing alcohol do you have on a typical day when you are drinking?: 1 or 2 3. How often do you have six or more drinks on one occasion?: Never Total Score: 1 JOVANNI-7 AMB Questionnaire JOVANNI-7 Date JOVANNI - 7 assessed: 10/21/23 Feeling nervous, anxious, or on edge: 0 = Not at all Not being able to stop or control worryin = Not at all Worrying too much about different things: 0 = Not at all Trouble relaxin = Not at all Being so restless that it is hard to sit still: 0 = Not at all Becoming easily annoyed or irritable: 0 = Not at all Feeling afraid as if something awful might happen: 0 = Not at all Total JOVANNI-7 score (0-4 normal; 5-9 mild; 10-14 moderate; 15-21 severe): 0 Source: Developed by Drs. Alan Srinivasan, Maile Mar, Pablo Rose and colleagues, with an educational pee from [employer]. JOVANNI-7 Assessment Billing JOVANNI-7 Assessment Tool: JOVANNI-7 Assessment 16631 Physical exam (Primary Care) Vital Signs: Last Vital Signs Pulse 66 10/21/23 16:07 BP 130/66 10/21/23 16:07 Pulse Ox 100 10/21/23 16:07 BMI result Body Mass Index 30.3 Tobacco/Smoking Status: Tobacco use Status Tobacco use date assessed 10/21/23 10/21/23 16:15 Patient Tobacco Use Status Never used Tobacco 10/21/23 16:08 e-Cigarette/Vaping Use Never Used 10/21/23 16:08 PHQ-9: PHQ-9 Score PHQ-9: Total score 0 10/21/23 16:32 Depression Screening Interpretation: Negative Thrive Assessment: Date of Thrive Assessment Date Thrive assessed 10/21/23 10/21/23 16:20 Assessment and Plan Assessment & Plan (1) Mixed hyperlipidemia: Code(s): E78.2 - Mixed hyperlipidemia Plan: Well?controlled?on?atorvastatin?80?mg?daily LDL?goal?is?less?than?70 Continue?current?medication (2) Coronary artery disease: Code(s): I25.10 - Atherosclerotic heart disease of [place] coronary artery without angina pectoris Plan: Followed?by?cardiology She?is?on?atorvastatin?and?Brilinta Also?taking?metoprolol?and?sacubitril?valsartan Recent?echo?showed?preserved?ejection?fraction Follow-up?with?Cardiology?as?recommended (3) Essential hypertension: Code(s): I10 - Essential (primary) hypertension Plan: Blood?pressure?is?fairly?well?controlled.??Goal?is?less?than?130/80 Continue?current?medications Follow-up?with?Cardiology (4) Hematuria: Code(s): R31.9 - Hematuria, unspecified Plan: Increased?blood?and?white?blood?cell?activity Denies?urinary?symptoms Will?repeat?along?with?urine?cytology?and?urine?culture. We?can?follow-up?by?telemedicine?in?a?couple?of?weeks (5) Low TSH level: Code(s): R79.89 - Other specified abnormal findings of blood chemistry Plan: She?is?on?methimazole?for?hyperthyroidism Follow-up?with?endocrinology?as?recommended (6) Screening for cervical cancer: Code(s): Z12.4 - Encounter for screening for malignant neoplasm of cervix Plan: No?longer?gets?Pap?smears?due?to?hysterectomy (7) Breast cancer screening by mammogram: Code(s): Z12.31 - Encounter for screening mammogram for malignant neoplasm of breast Plan: Mammogram?in?April?was?negative?for?malignancy Continue?annual?screening (8) Screening for colon cancer: Code(s): Z12.11 - Encounter for screening for malignant neoplasm of colon Plan: Will?discuss?at?upcoming?telemedicine?point (9) Screening for osteoporosis: Code(s): Z13.820 - Encounter for screening for osteoporosis Plan: Will?discuss?at?upcoming?telemedicine?appointment - history?of?hysterectomy (10) Vitamin D deficiency: Code(s): E55.9 - Vitamin D deficiency, unspecified Plan: Significantly?low?vitamin-D Will?send?script (11) Skin cancer: Code(s): C44.90 - Unspecified malignant neoplasm of skin, unspecified Plan: Skin?cancer?on?upper?lip.??She?has?a?Mohs?surgery?scheduled?with?Dermatology. (12) Annual physical exam: Code(s): Z00.00 - Encounter for general adult medical examination without abnormal findings Plan: 53-year-old?female?presents?for?an?extended?exam Orders: Orders UA and rflx microscopic Today R31.9 - Hematuria, unspecified, Z00.00 - Encounter for general adult medical examination without abnormal findings Urine Cytology Today R31.9 - Hematuria, unspecified Urine Culture Today R31.9 - Hematuria, unspecified Medications: New cholecalciferol (vitamin D3) 1,250 mcg PO QWEEK 28 days 4 caps 1RF Coding Level of Care Code Est Pt Level 3 (74484) Est Pt Prev Care 40-64y(69222) Diagnoses Mixed hyperlipidemia E78.2 Coronary artery disease I25.10 Essential hypertension I10 Hematuria R31.9 Low TSH level R79.89 Screening for cervical cancer Z12.4 Breast cancer screening by mammogram Z12.31 Screening for colon cancer Z12.11 Screening for osteoporosis Z13.820 Vitamin D deficiency E55.9 Skin cancer C44.90 Annual physical exam Z00.00 Additional Codes JOVANNI-7 Assessment Billing - JOVANNI-7 Assessment Tool: JOVANNI-7 Assessment 24400 ([id number])
== END 2023-10-21 16:59 | disposition home or self-care (01) ==
PROVIDERS: PCP Family Medicine; Visit Provider Family Medicine
DX: Z00.00 Encounter for general adult medical examination without abnormal findings (principal); E78.2 Mixed hyperlipidemia; R31.9 Hematuria, unspecified; I25.10 Atherosclerotic heart disease of native coronary artery without angina pectoris; I10 Essential (primary) hypertension; R79.89 Other specified abnormal findings of blood chemistry; Z12.31 Encounter for screening mammogram for malignant neoplasm of breast; Z12.11 Encounter for screening for malignant neoplasm of colon; Z13.820 Encounter for screening for osteoporosis; E55.9 Vitamin D deficiency, unspecified; C44.90 Unspecified malignant neoplasm of skin, unspecified
CPT/HCPCS: 99213; 99396

== ENCOUNTER 2023-10-21 16:52 | Outpatient (REF) | payer OTHER, SELFPAY ==
[2023-10-22 13:13] LABS: Appearance Urine Clear; Color Urine Yellow; Glucose Urine UA Negative (Negative); Leukocyte Esterase Urine Moderate (2+) (Negative); Nitrite Urine Negative (Negative); PH 5.5 (5.0-9.0); UMIC TRIGGER UA YES; Urine Blood Moderate (2+) (Negative); Urine Ketones Negative (Negative); Urine Protein Negative (Neg-Trace)
[2023-10-22 13:20] LABS: Bacteria Urine Trace (None Seen); Hyaline Casts Urine 0-2 /LPF (0-2); WBC Urine 21-50 /HPF (0-5)
== END 2023-10-21 16:53 | disposition home or self-care (01) ==
LOC: HO.LAB 16:52
PROVIDERS: Visit Provider Family Medicine
DX: R31.9 Hematuria, unspecified (principal); Z00.00 Encounter for general adult medical examination without abnormal findings
CPT/HCPCS: 81001; 81003; 87086; 88112

== ENCOUNTER 2023-11-06 13:33 | Outpatient (AMB) | payer OTHER, SELFPAY ==
--- NOTE | 2023-11-06 13:29 | A.OFFPC_ITS ---
Intake Visit Reasons: f/u [facility] via telemedicine Intake Note: Patient is scheduled to follow up on her labs today. Allergies ampicillin [AMPICILLIN] Allergy (Unknown, Verified 10/21/23 16:08) UNKNOWN, hives erythromycin base [ERYTHROMYCIN BASE] Allergy (Unknown, Verified 10/21/23 16:08) UNKNOWN Penicillins [PENICILLINS] Allergy (Unknown, Verified 10/21/23 16:08) UNKNOWN Sulfa (Sulfonamide Antibiotics) [SULFA (SULFONAMIDE ANTIBIOTICS)] Allergy (Unknown, Verified 10/21/23 16:08) UNKNOWN, rash Erythromycin Allergy (Unknown, Uncoded 10/21/23 16:08) rash Tobacco use date assessed: 11/06/23 Dental Screening Dental Screen Date: 10/21/23 HPI f/u [facility] via telemedicine HPI Details 53 y/o female presents to f/u hematuria. Had ordered urinalysis. Ongoing hematuria from urine done 10/21/23. Urine cytology 10/24/23 was normal. Denies any symptoms. Has seen a urology in the past for a stent before her hysterectomy. Has not had a baseline bone density test yet. Hx of hysterectomy. 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 Alan Srinivasan, Maile Mar, Pablo Rose and colleagues, with an educational pee from [employer]. Review of Systems Const Denies chills, Denies fatigue, Denies fever(s), Denies headache(s) and Denies weakness ENT Denies dizziness and Denies headache(s) Card Denies dyspnea Resp Denies cough, Denies dyspnea, Denies wheezing and Denies other (shortness of breath) Musc Denies numbness and Denies tingling Neuro Denies dizziness, Denies headache(s), Denies numbness, Denies tingling and Denies weakness Psych Denies anxiety and Denies depression Endo Denies fatigue Aller/Immun Denies wheezing Physical exam (Primary Care) Tobacco/Smoking Status: Tobacco use Status Tobacco use date assessed 11/06/23 11/06/23 13:32 Patient Tobacco Use Status Never used Tobacco 11/06/23 13:32 e-Cigarette/Vaping Use Never Used 11/06/23 13:32 Thrive Assessment: Date of Thrive Assessment Date Thrive assessed 10/21/23 11/06/23 13:32 Telehealth Telehealth Telehealth Platform: Telephone Location of provider rendering services: practice address Location of patient: address on file Patient Identification confirmed using: Name, : Yes Telehealth method: voice only Patient verbally consented to treatment: Yes Patient verbally consented to billing insurance company: Yes Patient informed of any privacy concerns related to visit: Yes Assessment and Plan Assessment & Plan (1) Hematuria: Code(s): R31.9 - Hematuria, unspecified Plan: Microscopic?hematuria Asymptomatic.??Nonsmoker.??Patient?is?over?50 Will?check?an?renal?ultrasound and?also?refer?patient?to?Urology (2) Screening for osteoporosis: Code(s): Z13.820 - Encounter for screening for osteoporosis Plan: S/p?MELBA Get?baseline?bone?density?test (3) Screening for colon cancer: Code(s): Z12.11 - Encounter for screening for malignant neoplasm of colon Plan: Patient?has?colonoscopy?on?Friday. Orders: Orders Lipid Panel Today E78.00 - Pure hypercholesterolemia, unspecified, Z00.00 - Encounter for general adult medical examination without abnormal findings Comprehensive [place]. Panel Fast Today E78.00 - Pure hypercholesterolemia, unspecified, Z00.00 - Encounter for general adult medical examination without abnormal findings Triiodothyronine T3 Total Today E03.9 - Hypothyroidism, unspecified, E05.90 - Thyrotoxicosis, unspecified without thyrotoxic crisis or storm XR DEXA axial skeleton Today M81.0 - Age-related osteoporosis without current pathological fracture, Z90.710 - Acquired absence of both cervix and uterus Free T4 (Free Thyroxine) Today E03.9 - Hypothyroidism, unspecified, E05.90 - Thyrotoxicosis, unspecified without thyrotoxic crisis or storm Thyroid Stimulating Hormone Today E03.9 - Hypothyroidism, unspecified, E05.90 - Thyrotoxicosis, unspecified without thyrotoxic crisis or storm Vitamin D 25-OH Total Today E55.9 - Vitamin D deficiency, unspecified renal BI Today R31.9 - Hematuria, unspecified Referrals Urology Referral R31.9 - Hematuria, unspecified Coding Level of Care Code Tele Est Pt Level 2 (85610) Diagnoses Hematuria R31.9 Screening for osteoporosis Z13.820 Screening for colon cancer Z12.11
== END 2023-11-06 15:43 | disposition home or self-care (01) ==
LOC: HO.HMGFM 13:33
PROVIDERS: PCP Family Medicine; Visit Provider Family Medicine
DX: R31.9 Hematuria, unspecified (principal); Z13.820 Encounter for screening for osteoporosis; Z12.11 Encounter for screening for malignant neoplasm of colon
CPT/HCPCS: 99212

== ENCOUNTER 2023-11-10 09:52 | Day surgery (SDC) | payer OTHER, SELFPAY ==
[2023-11-10 10:59] VITALS: BP 152/87; PULSE 73; RESP 20; TEMP 36.9; O2SAT 98
--- NOTE | 2023-11-10 11:14 | MHC.SHP ---
Pre-Procedural Eval Section A - 24 Hr Update-Section A only Date of Service: 11/10/23 Section B - Complete if H&P > 30 days Chief Complaint: screening Relevant Family History (Specify if Yes): No Relevant Social History: None Present Medications: see Short Stay Collaborative assessment Medical History: Significant History (Essential hypertension Mixed hyperlipidemia Myocardial infarction Coronary artery disease) History of Previous Operations: Relevant previous surgery/procedure and date(s) (History of hysterectomy) Allergies: Allergies Allergy/AdvReac Type Severity Reaction Status Date / Time ampicillin [AMPICILLIN] Allergy Unknown UNKNOWN, Verified 10/21/23 16:08 hives erythromycin base Allergy Unknown UNKNOWN Verified 10/21/23 16:08 [ERYTHROMYCIN BASE] Penicillins [PENICILLINS] Allergy Unknown UNKNOWN Verified 10/21/23 16:08 Sulfa (Sulfonamide Allergy Unknown UNKNOWN, Verified 10/21/23 16:08 Antibiotics) rash [SULFA (SULFONAMIDE ANTIBIOTICS)] Erythromycin Allergy Unknown rash Uncoded 10/21/23 16:08 Review of Systems Sugical H&P ROS: Negative: Constitution, Cardiovascular, Respiratory, Neurological, Psychiatric, Hem-Onc, Allergic/Immunologic, Gastrointestinal, Genitourinary, Musculoskeletal, Integumentary, Endocrine and Eyes/Ears/Nose/Throat Exam Surgical H&P Exam: Normal: HEENT, Normal: Heart, Normal: Lungs, Normal: Extremities, Normal: Abdomen, Normal: Skin and Normal: Neurological Plan Diagnosis/Plan: Unchanged I have reviewed the history and physical and performed a pertinent physical examination on my patient. No changes have occurred unless specified. Time Spent With Patient Time: Total time managing care of this patient today ____ minutes.
[2023-11-10] MEDS: Lactated Ringers 1,000 ML 100 ML IVCONT (11:17)
--- NOTE | 2023-11-10 11:50 | P.OPN-COLO_ITS ---
Colonoscopy Operative Note Operative Note Date of Service: 11/10/23 Narrative: Operative Information Procedure Description: Colonoscopy Indication: screening Anesthesia: MAC COLONOSCOPY Instrument: Olympus variable stiffness pediatric scope 190L Colonoscopy Monitoring: Vital signs and clinical assessment, continuous EKG monitoring, Pulse oximetry, Carbon Dioxide monitoring and blood pressure monitoring were done throughout the procedure. Colon withdrawal time was 12 minutes. Procedure: The patient was placed in the left lateral decubitis position and pre-procedure medications were administered. After a digital rectal examination of the ano-rectum, the video colonoscope was inserted into the rectum and advanced through the colon to the cecum/TI. The colonoscope was slowly withdrawn in a retrograde panoramic fashion and the colon mucosa was carefully examined including a retroflexed view of the rectum. Findings and interventions are described below. Procedure Difficulty: easy Findings: Terminal Ileum-normal Cecum:normal Right sided retroflexion- 3-4 mm sessile polyp removed with cold forceps Ascending Colon: normal Transverse Colon -normal Descending Colon:normal Sigmoid Colon: 11-12 mm semi pedunculated polyp removed with cold snare and 3 clips applied for hemostasis Rectum: Retroflexion with small internal hemorrhoids seen, grade I Anorectum - normal Intervention: cold forceps polypectomy, cold snare polypectomy, clips for hemostasis Colon preparation: [place] Bowel Preparation Scale Right colon; 2 Transverse colon: 2 Left colon; 2 (0 = Unprepared colon segment with mucosa not seen due to solid stool that cannot be cleared. 1 = Portion of mucosa of the colon segment seen, but other areas of the colon segment not well seen due to staining, residual stool and/or opaque liquid. 2 = Minor amount of residual staining, small fragments of stool and/or opaque liquid, but mucosa of colon segment seen well. 3 = Entire mucosa of colon segment seen well with no residual staining, small fragments of stool or opaque liquid) Impression and Post Procedure Diagnosis: colon polyps internal hemorrhoids Plan: High fiber diet leaflet Avoid straining at stool, epsom salts and sitz bath, anusol supps or cream Repeat Colonoscopy in 3-4 years due to polyps or earlier if clinically indicated Above findings were reviewed with the patient and relevant handouts were provided if indicated.
--- NOTE | 2023-11-10 11:55 | HO.ANESPROP2 ---
Documented by User: Anne Muniz NP 11/07/23 12:55 HPI - Anesthesia Eval Consult details Narrative: 53yo F for Colonoscopy Follows [facility] for [place] 04/2022, CAD, dilated cardiomyopathy. Last office visit 07/2023, stable with good exercise tolerance. Instructed to continue asa and hold brillinta PMFSH Active Problems Active Problems: All Active Problems Skin cancer (Acute) Hematuria (Acute) UTI symptoms (Acute) Elevated ALT measurement (Acute) Coronary artery disease (Acute) Mixed hyperlipidemia (Acute) Myocardial infarction (Acute) Screening for osteoporosis (Acute) Screening for colon cancer (Acute) Bacteriuria (Acute) Hypercholesterolemia (Acute) Breast cancer screening by mammogram (Acute) Screening for cervical cancer (Acute) Premature ventricular contractions (Acute) Premature atrial contractions (Acute) Hyperthyroidism (Acute) Palpitations (Acute) Vitamin D deficiency (Acute) Annual physical exam (Acute) History of goiter (Acute) Low TSH level (Acute) Laboratory examination ordered as part of a routine general medical examination (Acute) Essential hypertension (Acute) Past Medical History Medical History (Updated 11/07/23 @ 12:53 by Anne Muniz NP) Coronary artery disease Mixed hyperlipidemia Myocardial infarction Essential hypertension Family History Family History Father CHF (congestive heart failure) Mother Afib Other Mental health disorder Surgical History Surgical History (Updated 11/10/23 @ 11:10 by Danae Caro RN) Stented coronary artery History of hysterectomy Social History Social History Housing: Condominium Alcohol intake: never Patient Tobacco Use Status: Never used Tobacco e-Cigarette/Vaping Use: Never Used Second Hand Smoke Exposure: No Are you DNR?: No Advance Directives: No Advance Directives Information Provided: Yes service: No Current occupational status: employed 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 occupational exposures/hazards: No Cognitive needs: No Hearing needs: No Vision needs: Yes Meds Allergies Allergy/AdvReac Type Severity Reaction Status Date / Time ampicillin [AMPICILLIN] Allergy Unknown UNKNOWN, Verified 10/21/23 16:08 hives erythromycin base Allergy Unknown UNKNOWN Verified 10/21/23 16:08 [ERYTHROMYCIN BASE] Penicillins [PENICILLINS] Allergy Unknown UNKNOWN Verified 10/21/23 16:08 Sulfa (Sulfonamide Allergy Unknown UNKNOWN, Verified 10/21/23 16:08 Antibiotics) rash [SULFA (SULFONAMIDE ANTIBIOTICS)] Erythromycin Allergy Unknown rash Uncoded 10/21/23 16:08 Home Medications ?Medication ?Instructions ?Recorded ?Confirmed ?Last Taken ?Type atorvastatin 80 mg tablet 80 mg PO BEDTIME 05/30/22 10/21/23 Unknown History sacubitril 24 mg-valsartan 26 mg 1 tab PO BID 01/21/23 10/21/23 11/10/23 History tablet (Entresto) metoprolol succinate 50 mg 25 mg PO BEDTIME 07/02/23 10/21/23 11/09/23 History tablet,extended release 24 hr aspirin 325 mg tablet 325 mg PO DAILY 10/21/23 10/21/23 11/10/23 History methimazole 5 mg tablet 5 mg PO DAILY 10/21/23 10/21/23 11/10/23 History Exam Pertinent Lab Results Pertinent Lab Results: Laboratory Tests 01/10/23 10/15/23 13:24 15:06 WBC 6.5 Hgb 12.2 Hct 37.5 Plt Count 171 Sodium 140 Potassium 4.1 Chloride 107 Carbon Dioxide 26 BUN 13 Creatinine 0.73 Narrative Narrative: ECHO Per 07/2023 cardiology note: apical akinesis with an overall preserved EF of 55-60% Assessment and Plan Assessment Anesthesia Assessment: Chart Reviewed Documented by User: Kristina Hatfield DO 11/10/23 12:00 [facility] Past Medical History Medical History (Updated 11/07/23 @ 12:53 by Anne Muniz NP) Coronary artery disease Mixed hyperlipidemia Myocardial infarction Essential hypertension Family History Family History Father CHF (congestive heart failure) Mother Afib Other Mental health disorder Family history of problems with anesthesia: No Surgical History Surgical History (Updated 11/10/23 @ 11:10 by Danae Caro RN) Stented coronary artery History of hysterectomy History of Problems with Anesthesia: No Social History Social History Housing: Condominium Alcohol intake: never Patient Tobacco Use Status: Never used Tobacco e-Cigarette/Vaping Use: Never Used Second Hand Smoke Exposure: No Are you DNR?: No Advance Directives: No Advance Directives Information Provided: Yes service: No Current occupational status: employed 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 occupational exposures/hazards: No Cognitive needs: No Hearing needs: No Vision needs: Yes Meds Allergies Allergy/AdvReac Type Severity Reaction Status Date / Time ampicillin [AMPICILLIN] Allergy Unknown UNKNOWN, Verified 10/21/23 16:08 hives erythromycin base Allergy Unknown UNKNOWN Verified 10/21/23 16:08 [ERYTHROMYCIN BASE] Penicillins [PENICILLINS] Allergy Unknown UNKNOWN Verified 10/21/23 16:08 Sulfa (Sulfonamide Allergy Unknown UNKNOWN, Verified 10/21/23 16:08 Antibiotics) rash [SULFA (SULFONAMIDE ANTIBIOTICS)] Erythromycin Allergy Unknown rash Uncoded 10/21/23 16:08 Home Medications ?Medication ?Instructions ?Recorded ?Confirmed ?Last Taken ?Type atorvastatin 80 mg tablet 80 mg PO BEDTIME 05/30/22 10/21/23 Unknown History sacubitril 24 mg-valsartan 26 mg 1 tab PO BID 01/21/23 10/21/23 11/10/23 History tablet (Entresto) metoprolol succinate 50 mg 25 mg PO BEDTIME 07/02/23 10/21/23 11/09/23 History tablet,extended release 24 hr aspirin 325 mg tablet 325 mg PO DAILY 10/21/23 10/21/23 11/10/23 History methimazole 5 mg tablet 5 mg PO DAILY 10/21/23 10/21/23 11/10/23 History Exam Exam Date and Time: November 10, 2023 115 Height,Weight and Vital Signs: Height 5 ft 5 in Weight 81.647 kg Vital Signs Temperature 98.4 F 11/10/23 10:59 Pulse Rate 73 11/10/23 10:59 Respiratory Rate 20 11/10/23 10:59 Blood Pressure 152/87 H 11/10/23 10:59 Pulse Oximetry 98 11/10/23 10:59 Oxygen Delivery Method Room Air 11/10/23 10:59 Temperature 98.4 F 11/10/23 10:59 Pulse Rate 73 11/10/23 10:59 Respiratory Rate 20 11/10/23 10:59 Blood Pressure 152/87 H 11/10/23 10:59 Pulse Oximetry 98 11/10/23 10:59 Oxygen Delivery Method Room Air 11/10/23 10:59 Airway Mallampati Class: II TM Dist: >3cm Neck ROM: Full Loose/Missing/Broken Teeth: No (patient denies any loose or broken teeth) Heart: S1S2 Lungs: CTAB Assessment and Plan Assessment Anesthesia Assessment: Anesthesia Plan Discussed and Chart Reviewed Final Anesthetic Review Family History of Problems with Anesthesia: No History of Problems with Anesthesia: No NPO: Yes ASA Class: III Final Preanesthetic Review: No Changes in Pt Med Stat, Meds/Allgs Chart Reviewed, Consent Obtained/Reviewed and Anes Risks/Benef Reviewed Patient Risk: Low Procedure Risk: Low Anesthetic Plan Anesthetic Plan: MAC: and Agree w/ Assess. and Plan Disposition: Standard PACU
[2023-11-10 12:25] VITALS: BP 112/82; PULSE 70; RESP 17; TEMP 36.3; O2SAT 98
[2023-11-10 12:30] VITALS: BP 149/74; PULSE 74; RESP 14; O2SAT 99
[2023-11-10 12:35] VITALS: BP 130/80; PULSE 74; RESP 16; O2SAT 99
[2023-11-10 12:40] VITALS: BP 143/75; PULSE 75; RESP 16; O2SAT 99
[2023-11-10 12:54] VITALS: BP 134/83; PULSE 73; RESP 18; TEMP 36.3; O2SAT 99
== END 2023-11-10 13:10 | disposition home or self-care (01) ==
PROVIDERS: PCP Family Medicine; Visit Provider Internal Medicine Gastroenterology
PROC: 0DJD8ZZ Inspection of Lower Intestinal Tract, Via Natural or Artificial Opening Endoscopic (ICD-10-PCS; CPT 45378; principal; 2023-11-10 13:00)
DX: Z12.11 Encounter for screening for malignant neoplasm of colon (principal); D12.2 Benign neoplasm of ascending colon; K51.40 Inflammatory polyps of colon without complications; K64.0 First degree hemorrhoids; I10 Essential (primary) hypertension; I25.2 Old myocardial infarction; Z79.82 Long term (current) use of aspirin; Z88.0 Allergy status to penicillin; Z88.2 Allergy status to sulfonamides
CPT/HCPCS: 45385; 45380; 88305; J2704

== ENCOUNTER → 2023-11-10 09:52 | Outpatient (BNV) | payer OTHER, SELFPAY | PROVIDERS: PCP Family Medicine; Visit Provider Internal Medicine Gastroenterology | DX: Z12.11 Encounter for screening for malignant neoplasm of colon (principal); D12.2 Benign neoplasm of ascending colon; K63.5 Polyp of colon; K64.0 First degree hemorrhoids | CPT/HCPCS: 45380; 45385 ==

== ENCOUNTER 2023-11-11 15:35 | Outpatient (REF) | payer OTHER, SELFPAY ==
--- NOTE | ~2023-11-11 | US_ITS ---
EXAMINATION: US RETROPERITONEAL LIMITED (RENAL ONLY) CLINICAL INFORMATION: Hematuria, unspecified.. COMPARISON: CT and abdomen and pelvis 03/25/2017. TECHNIQUE: Real-time imaging of the kidneys. Limited visualization due to bowel gas. FINDINGS: RIGHT KIDNEY: 11.4 x 5.4 x 5.4 cm (SAG x AP x TRV). No hydronephrosis. No renal calculi. Renal cortical thickness is normal. Limited visualization. LEFT KIDNEY: 11.7 x 5.1 x 4.8 cm (SAG x AP x TRV). No hydronephrosis. No renal calculi. Renal cortical thickness is normal. Limited visualization. . ADDITIONAL FINDINGS: Right hepatic 0.8 cm pole cyst with benign features. There is no indication for follow-up imaging. US/US renal BI IMPRESSION: No hydronephrosis. No renal calculi. Renal cortical thickness is normal. Limited visualization.
== END 2023-11-11 15:36 | disposition home or self-care (01) ==
LOC: HO.US 15:35
PROVIDERS: PCP Family Medicine; Visit Provider Family Medicine
DX: R31.9 Hematuria, unspecified (principal)
CPT/HCPCS: 76775

== ENCOUNTER 2023-11-14 10:17 | Outpatient (AMB) | payer OTHER, SELFPAY ==
--- NOTE | 2023-11-14 10:41 | MHC.OFFVIS ---
Vital Signs 11/14/23 10:44 Height 5 ft 5 in Weight 177 lb BMI 29.5 BP 121/63 Blood Pressure Location Lt brachial Position Sitting Pulse 65 Intake Visit Reasons: S/P colon Intake Note: Patient follow up Colonoscopy results. Patient denies any GI issues. Range Aide Required: No Accompanied by: Self / Same As Patient Allergies ampicillin [AMPICILLIN] Allergy (Unknown, Verified 11/14/23 10:41) UNKNOWN, hives erythromycin base [ERYTHROMYCIN BASE] Allergy (Unknown, Verified 11/14/23 10:41) UNKNOWN Penicillins [PENICILLINS] Allergy (Unknown, Verified 11/14/23 10:41) UNKNOWN Sulfa (Sulfonamide Antibiotics) [SULFA (SULFONAMIDE ANTIBIOTICS)] Allergy (Unknown, Verified 11/14/23 10:41) UNKNOWN, rash Erythromycin Allergy (Unknown, Uncoded 10/21/23 16:08) rash HPI HPI S/P colon: Details: LAST VISIT Screening for colon cancer Plan Patient denies any GI, cardiac or respiratory symptoms.? Denies any issues with anesthesia in the past.? Denies any history of sleep apnea.? No history infectious diseases in the past or present.? Patient is on Brilinta and aspirin. She has been on Brilinta since April of 2022. History of aortic dissection. Is following up with provider in [place]. Patient has cardiology appointment on Friday and will ask for clearance for the procedure. We will also ask for directions of when to stop and restart Brilinta. The office number is: [phone]?Dr. Kurtis Cruz. No family or personal history of colon cancer or polyps.? Patient denies melena, hematochezia, unintentional weight loss or ribbon like stools.? Discussed at length the pre-procedure,? prep, diet & medications as well as what to expect prior, during and after the procedure.?? Stressed the importance of good bowel prep. ?Recommended the use of Vaseline or Calmoseptine OTC & baby wipes with bowel movements to promote comfort.? ?Patient verbalizes understanding and agrees to plan of care.? She was given the opportunity to ask questions and all questions answered.? We will see her after the procedure.? Medications New polyethylene glycol 3350 (Miralax) As directed by gastroenterology department at [facility] 238 grams PO ONCE 238 grams 0RF Z12.11 bisacodyl (Dulcolax (bisacodyl)) take 4 tabs at noon the day before your colonoscopy 20 mg (4 x 5 mg) PO ONCE 1 day 4 tabs 0RF Z12.11 COLONOSCOPY Findings: Terminal Ileum-normal Cecum:normal Right sided retroflexion- 3-4 mm sessile polyp removed with cold forceps Ascending Colon: normal Transverse Colon -normal Descending Colon:normal Sigmoid Colon: 11-12 mm semi pedunculated polyp removed with cold snare and 3 clips applied for hemostasis Rectum: Retroflexion with small internal hemorrhoids seen, grade I Anorectum - normal Intervention: cold forceps polypectomy, cold snare polypectomy, clips for hemostasis Colon preparation: [place] Bowel Preparation Scale Right colon; 2 Transverse colon: 2 Left colon; 2 (0 = Unprepared colon segment with mucosa not seen due to solid stool that cannot be cleared. 1 = Portion of mucosa of the colon segment seen, but other areas of the colon segment not well seen due to staining, residual stool and/or opaque liquid. 2 = Minor amount of residual staining, small fragments of stool and/or opaque liquid, but mucosa of colon segment seen well. 3 = Entire mucosa of colon segment seen well with no residual staining, small fragments of stool or opaque liquid) Impression and Post Procedure Diagnosis: colon polyps internal hemorrhoids Plan: High fiber diet leaflet Avoid straining at stool, epsom salts and sitz bath, anusol supps or cream Repeat Colonoscopy in 3-4 years due to polyps or earlier if clinically indicated PATHOLOGY RESULTS Diagnosis A. Colon, ascending, polypectomy: Tubular adenoma; negative for high-grade dysplasia or carcinoma. B. Colon, sigmoid, polypectomy: Inflammatory polyp with hyperplastic changes TODAY'S VISIT: Patient is here today for follow-up and to discuss colonoscopy results. Patient denies any ill effects from the prep, anesthesia or procedure itself. However patient does admit that since she had her colonoscopy 5 days ago she really did not have a normal bowel movement. Patient states that she only went very small amount. Feels bloated, distended and full. Patient denies any dyspepsia, dysphagia or odynophagia. Has not taking anything to help her move her bowels. Patient admits that she drinks fluids throughout the day. Colonoscopy results discussed with patient. Recommendation was made for patient to return for colonoscopy in 3 years. Tubular adenoma found without high-grade dysplasia or carcinoma in ascending colon. Sigmoid colon hyperplastic inflammatory polyp seen [facility] Medical History (Updated 11/07/23 @ 12:53 by Anne Muniz NP) Coronary artery disease Mixed hyperlipidemia Myocardial infarction Essential hypertension Surgical History (Updated 11/14/23 @ 10:42 by Denise Metzger) Hx of colonoscopy Stented coronary artery History of hysterectomy Family History Father CHF (congestive heart failure) Mother Afib Other Mental health disorder Social History Housing: Condominium Alcohol intake: never Patient Tobacco Use Status: Never used Tobacco e-Cigarette/Vaping Use: Never Used Second Hand Smoke Exposure: No service: No Current occupational status: employed 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 occupational exposures/hazards: No Cognitive needs: No Hearing needs: No Vision needs: Yes Review of Systems Const Denies weight gain and Denies weight loss ENT Reports no additional complaints, Denies dysphagia and Denies odynophagia Card Reports no additional complaints Resp Reports no additional complaints GI Denies abdominal pain, Denies belching, Denies melena, Denies bloating, Denies change in bowel habits, Denies dysphagia, Denies excessive flatus, Denies dyspepsia, Denies heartburn, Denies diarrhea, Denies loose stools, Denies nausea, Denies odynophagia and Denies vomiting Musc Reports no additional complaints Neuro Reports no additional complaints Psych Reports no additional complaints Endo Reports no additional complaints Physical Exam Vital Signs: Last Vital Signs Pulse 65 11/14/23 10:44 BP 121/63 11/14/23 10:44 BMI result Body Mass Index 29.5 Const General: healthy appearing and no acute distress Nutritional Appearance: obese Orientation/consciousness: patient oriented x3 Resp Effort & Inspection: normal respiratory effort, able to speak in complete sentences, no tracheal deviation and symmetric chest movement Auscultation: clear to auscultation bilaterally Cardio Rate: regular rate GI Inspection: Yes normal to inspection, No distended and Yes obesity Palpation (GI): Soft to palpation, not firm, nontender and No hepatosplenomegaly present Auscultation: normal bowel sounds General: Yes no CVA tenderness Back/Spine/Pelvis Back: no CVA tenderness Skin General skin exam: elasticity normal, turgor normal and dry skin Neuro General: patient oriented x3 Psych Appearance: grossly normal Mental Status: mental status grossly normal Assessment & Plan Assessment & Plan (1) Status post colonoscopy: Code(s): Z98.890 - Other specified postprocedural states (2) Tubular adenoma: Code(s): D36.9 - Benign neoplasm, unspecified site (3) Hyperplastic polyp of intestine: Code(s): K63.5 - Polyp of colon (4) Constipation: Code(s): K59.00 - Constipation, unspecified Qualifiers: Constipation type: slow transit constipation Qualified Code(s): K59.01 - Slow transit constipation Plan As mentioned above colonoscopy discussed with patient. Patient will be returning for colorectal screening in 3 years, sooner if clinically necessary. Patient currently is constipated and will start taking MiraLax in the morning and senna in the evening. Patient will follow-up in our office on as needed basis. Patient denies any GI concerning symptoms at this moment except for constipation after her colonoscopy. She will follow-up with her PCP and call our office if she will continue to have trouble moving her bowels. She is agreeable to plan of care and verbalizes understanding of instructions. She was given the opportunity to ask questions and all questions answered. Thank you for allowing me to participate in her care Medications: New polyethylene glycol 3350 (Miralax) 17 grams PO DAILY 510 grams 2RF sennosides (Natural Senna Laxative) 17.2 mg (2 x 8.6 mg) PO BEDTIME 60 tabs 3RF constipation K59.00 - Constipation, unspecified Coding Level of Care Code Est Pt Level 3 (65764) Diagnoses Status post colonoscopy Z98.890 Tubular adenoma D36.9 Hyperplastic polyp of intestine K63.5 Slow transit constipation K59.01 Constipation type: slow transit constipation Time Spent (min) 30 Comment 20 minutes spent with patient and additional 10 minutes spent reviewing her records
[2023-11-14 10:44] VITALS: BP 121/63; PULSE 65; BMI 29.5
== END 2023-11-14 11:25 | disposition home or self-care (01) ==
LOC: HO.HGI 10:17
PROVIDERS: PCP Family Medicine; Visit Provider Nurse Practitioner Family
DX: Z98.890 Other specified postprocedural states (principal); D36.9 Benign neoplasm, unspecified site; K63.5 Polyp of colon; K59.01 Slow transit constipation
CPT/HCPCS: 99213

== ENCOUNTER → 2023-11-14 10:17 | Outpatient (BNVA) | payer OTHER, SELFPAY | PROVIDERS: PCP Family Medicine; Visit Provider Nurse Practitioner Family ==

== ENCOUNTER 2024-01-06 14:18 | Outpatient (REF) | payer OTHER, SELFPAY ==
--- NOTE | ~2024-01-06 | MM_ITS ---
EXAMINATION: BONE DENSITOMETRY CLINICAL INDICATION: Age-related osteoporosis without current pathological fracture. COMPARISON: This is the patient's baseline examination. TECHNIQUE: Using a [employer] DXA System (software version: 13.1) manufactured by [employer], dual-energy x-ray absorptiometry was performed of the lumbar spine and left hip. The images are of good technical quality. Summary results are attached. FINDINGS: LEFT FEMUR, NECK: BMD 1.076 g/cm2, Z-score 0.8, T-score 0.3, normal. LEFT FEMUR, TOTAL: BMD 1.131 g/cm2, Z-score 1.1, T-score 1.0, normal. AP SPINE L1-L4: BMD 1.268 g/cm2, Z-score 0.7, T-score 0.7, normal. IDENTIFIED RISK FACTORS: Early menopause, secondary osteoporosis, hysterectomy. HISTORY OF FRACTURE: None listed. MEDICATIONS: Vitamin D. MM/XR DEXA axial skeleton IMPRESSION: 1. DIAGNOSIS: Normal bone density based on the lowest T-score value of 0.3 in the femoral neck applying World Health Organization criteria. 2. 10-YEAR FRACTURE RISK PREDICTION, FRAX: According to the guidelines, FRAX calculation should only be performed on patients in the osteopenia bone density category. Therefore, FRAX was not performed on this patient. 3. Treatment Recommendations: NOF guidelines recommend consideration for treatment in postmenopausal women and men age 50 and older presenting with the following: -A hip or vertebral (clinical or morphometric) fracture. -T-score less than or equal to -2.5 at the femoral neck or spine after appropriate evaluation to exclude secondary causes. -Low bone mass at the hip or spine and a 10-year fracture probability by FRAX of greater than or equal to 3% for hip fracture or greater than or equal to 20% for major osteoporotic fracture based on the [place] adapted WHO algorithm. 4. Other Recommendations: All treatment decisions require clinical judgment and consideration of individual patient factors, including patient preferences, comorbidities, previous drug use, risk factors not captured in the FRAX model (e.g. frailty, falls, vitamin D deficiency, increased bone turnover, interval significant decline in bone density) and possible under or overestimation of fracture risk by FRAX. FUTURE SCAN RECOMMENDATION: People with diagnosed cases of osteoporosis or at high risk for fracture should have regular bone mineral density tests. For patients eligible for Medicare, routine testing is allowed once every 2 years. The testing frequency can be increased to one year for patients who have rapidly progressing disease, those who are receiving or discontinuing medical therapy to restore bone mass, or have additional risk factors.
== END 2024-01-06 14:19 | disposition home or self-care (01) ==
LOC: HO.MAMMO 14:18
PROVIDERS: PCP Family Medicine; Visit Provider Family Medicine
DX: M81.0 Age-related osteoporosis without current pathological fracture (principal); Z78.0 Asymptomatic menopausal state; Z90.710 Acquired absence of both cervix and uterus
CPT/HCPCS: 77080

== ENCOUNTER 2024-04-19 15:05 | Outpatient (REF) | payer OTHER, SELFPAY ==
[2024-04-19 15:29] LABS: Appearance Urine Cloudy; Color Urine Yellow; Glucose Urine UA Negative (Negative); Leukocyte Esterase Urine Small (1+) (Negative); Nitrite Urine Negative (Negative); PH 5.5 (5.0-9.0); Specific Gravity - Urine >= 1.030 (1.005-1.025); UMIC TRIGGER UA YES; Urine Blood Large (3+) (Negative); Urine Ketones Trace mg/dL (Negative); Urine Protein Trace mg/dL (Neg-Trace)
[2024-04-19 16:02] LABS: Bacteria Urine 2+ (None Seen); Hyaline Casts Urine 0-2 /LPF (0-2); WBC Urine 0-5 /HPF (0-5)
[2024-04-19 16:03] LABS: Alanine Aminotransferase 29 U/L (0-31); Albumin Level 4.2 g/dL (3.5-5.0); Alkaline Phosphatase 61 U/L (39-117); Anion Gap 12 (12-20); Aspartate Amino Transferase 31 U/L (5-31); Bilirubin Total 0.7 mg/dL (0.0-1.0); Blood Urea Nitrogen 18 mg/dL (9-16); Calcium 9.3 mg/dL (8.4-10.2); Carbon Dioxide 24 mmol/L (22-29); Chloride 107 mmol/L (96-108); Cholesterol 101 mg/dL (<200); Estimated Glomerular Filt Rate > 60; Glucose Fasting 87 mg/dL (60-99); HDL Cholesterol 43 mg/dL (>40); LDL Cholesterol Calculated 48 mg/dL (<100); Potassium 3.7 mmol/L (3.3-5.1); Sodium 139 mmol/L (135-145); Total Protein 7.1 g/dL (6.5-8.0); Triglycerides 51 mg/dL (<150)
[2024-04-19 16:21] LABS: Free T4 (Free Thyroxine) 0.77 ng/dL (0.71-1.85); Thyroid Stimulating Hormone 3.68 uIU/mL (0.32-4.0); Vitamin D 25-OH Total 48.6 ng/mL (>30)
[2024-04-21 07:28] LABS: Triiodothyronine T3 Total 91 ng/dL (76-181)
== END 2024-04-19 15:06 | disposition home or self-care (01) ==
LOC: HO.LAB 15:05
PROVIDERS: PCP Family Medicine; Visit Provider Family Medicine
DX: Z00.00 Encounter for general adult medical examination without abnormal findings (principal); E55.9 Vitamin D deficiency, unspecified; E05.90 Thyrotoxicosis, unspecified without thyrotoxic crisis or storm; E03.9 Hypothyroidism, unspecified; E78.00 Pure hypercholesterolemia, unspecified
CPT/HCPCS: 36415; 80053; 80061; 81001; 82306; 84439; 84443; 84480

== ENCOUNTER 2024-06-17 14:30 | Outpatient (REF) | payer OTHER, SELFPAY ==
--- OUTSIDE RECORDS SUMMARY | 2024-06-17 14:32 | XMS_ITS | Continuity of Care Document ---
Author Organization [facility] [address] [place] [address] Phone [phone] Care Team Providers Care Investor Relations Coordinator Name Role Phone Brandin Dickinson M.D. Care Team Information Receive r [phone] Steve Hernadez MD Care Team Information Business Continuity Specialist [phone] Problems Active Problems Provider Date Thyroid nodule Mandeep Garland M.D. Onset: 10/2022 Essential hypertension Mandeep Garland M.D. Ons et: 11/25/2022 Acute dissection of coronary artery Mandeep carty M.D. Onset: 11/25/2022 Subclinical hyperthyroidism Janet Chapa Onset: 11/25/2022 Multinodular goiter Mandeep Garland M.D. Onset: 11/25/2022 Social History Type Date Description Comments Sex Unknown Tobacco Use Start: Unknown Never Smoked Cigarettes ETOH Use Occasionally consumes alcoho l Allergies and adverse reactions Active Allergies Criticality Reaction Severity Comments Date Penicillins Unable to assess criticality 11/25/2022 Sulfamethoxazole Unable to assess criticality 11/25/2022 Erythromycin Unable to assess criticality 11/25/2022 Medications Active Medications SIG Qnty Indications Ordering Provider Date [id number] Tablets Take 1 Tablet By Mouth Fri-friday and 1/2 tab on Sat-Sun as direcetd 30tabs Renny Noland M.D. 05/18/2024 Aspirin [id number] Tablets Chew 1 Tablet Every Day Mandeep Garland M.D. 09/04/2023 [id number] Tablets Take 1 Tablet By Mouth Twice A Day Unknown Atorvastatin [id number] Tablets Take 1 Tablet By Mouth Everyday AT Bedtime Unknown Metoprolol Succinate ER50mg Tablets ER 24HR Take half Tablet By Mouth once A Day as Directed Unknown History Medications [id number] Tablets Take 1/2 Tablet By Mouth Daily 45tabs Mandeep Garland M.D. 09/15/2023 - 05/18/2024 Vital Signs Date Vital Result Comment 03/30/2024 3:58pm BP Systolic 120 mmHg BP Diastolic 80 mmHg Heart Rate 71 /min Height 65 inches 5'5 Weight 183.38 lb BMI (Body Mass Index) 30.5 kg/m2 Results Test Acquired Date Facility Test Result H/L Range Note TSH+Free T4 05/11/2024 [facility] TSH 5.720 uIU/mL High 0.450-4. 500 T4,Free(Direct) 0.84 ng/dL 0.82-1.7 7 Laboratory test finding 05/11/2024 [facility] Triiodothyronine (T3), Free 2.7 pg/mL 2.0-4.4 Laboratory test finding 03/22/2024 [facility] TSH 3.640 uIU/mL 0.450-4. 500 Triiodothyronin e (T3), Free 3.0 pg/mL 2.0-4.4 Thyroxine (T4) Free, Direct 0.93 ng/dL 0.82-1.7 7 Laboratory test finding 01/08/2024 [facility] TSH 1.630 uIU/mL 0.450-4. 500 Triiodothyronin e (T3), Free 3.0 pg/mL 2.0-4.4 Thyroxine (T4) Free, Direct 0.94 ng/dL 0.82-1.7 7 Laboratory test finding 10/22/2023 [facility] Thyroxine (T4) Free, Direct 0.99 ng/dL 0.82-1.7 7 TSH Rfx on Abnormal to Free T4 10/22/2023 [facility] TSH RFX On Abnormal To Free T4 0.346 uIU/mL Low 0.450-4. 500 T4,Free (Direct) TNP ng/dL 1 Laboratory test finding 10/22/2023 [facility] Triiodothyronine (T3), Free 3.0 pg/mL 2.0-4.4 Laboratory test finding 09/04/2023 [facility] Triiodothyronine (T3), Free 4.6 pg/mL High 2.0-4.4 TSH & Free T4 Dialysis 09/04/2023 [facility] Free T4 by Dialysis/Global Implementation Manager 1.3 ng/dL 2 TSH-Icma <0.01 uU/mL Low 3 Laboratory test finding 06/05/2023 [facility] TSH With Reflex To FT4 5.95 uIU/mL High (0.4-4.2 ) Free T4 0.83 ng/dL (0.70-1. 80) Laboratory test finding 02/17/2023 [facility] Free T4 0.81 ng/dL (0.70-1. 80) TSH With Reflex To FT4 2.61 uIU/mL (0.4-4.2 ) Laboratory test finding 01/06/2023 [facility] TSH With Reflex To FT4 0.03 uIU/mL Low (0.4-4.2 ) Free T4 1.34 ng/dL (0.70-1. 80) Laboratory test finding 11/25/2022 [facility] TSH With Reflex To FT4 5.18 uIU/mL High (0.4-4.2 ) Free T4 0.82 ng/dL (0.70-1. 80) 1 Duplicate procedure ordered. 2 This test was develo ped and its performance characteristics determined by [facility]. It has not been cleared or approved by the Food and Drug Administration. 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 E05.90 Thyrotoxicosis, unsp without thyrotoxic crisis or storm Assessments Date Code Description Provider 03/30/2024 E04.2 Multinodular goiter DEVIN Eubanks 03/30/2024 E05.90 Subclinical hyperthyroidism DEVIN Meyers Plan of Treatment Future Appointment(s):* 07/23/2024 3:15 pm - DEVIN Meyers at Main Office * 07/13/2024 3:15 pm - DEVIN Meyers at Main Office 01/08/2024 - DEVIN Meyers* 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
--- OUTSIDE RECORDS SUMMARY | 2024-06-17 14:32 | XMS_ITS | Data Portability ---
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 She has no chest pain suggestive of recurrent angina and no signs or symptoms of decompensated heart failure or arrhythmias. She remains on metoprolol and Entresto in addition to dual antiplatelet therapy. She had an echocardiogram this morning that demonstrated her EF to be normal with no valvular lesions. I have asked her to continue with her current medical regimen at their current dosages with the exception of cutting metoprolol to 25 mg twice a day. I will see her back in clinical followup in three months. As always, it is a pleasure seeing patients along with you. Not available 08/27/2022 15:59:30 12/17/2022 12/17/2022 IMPRESSION: Rosa continues to do well from a cardiology perspective. She has had no chest pain suggestive of recurrent angina and has no signs or symptoms of heart failure or arrhythmias. I have asked her to continue with her current medical regimen at their current dosages. I told her we would switch her from Entresto and losartan because of cost and the fact that her left ventricular function has normalized. I told her we would wait until the Entresto prescription runs out. As always, it is a pleasure seeing patients along with you. Not available 12/17/2022 16:01:46 04/25/2023 04/25/2023 Ms. Rosa Owens presents for follow-up. Has been doing well from cardiology perspective. She denies any chest pains, shortness of breath, palpitations, dizziness and lightheadedness. She denies any anginal symptoms since she had a stent placement. She does report some fatigue and low energy which could be related to the metoprolol. She also reports she has couple more weeks left of Entresto and wondering if she can switch to cheaper medication such as losartan as discussed during previous visit with Dr. Cruz. We discussed possible coupon for Entresto and if that does not work we can switch her to losartan. Due to fatigue recommended to decrease metoprolol to 25 mg at bedtime. We also discussed dental clearance and whether she can hold stop the Brilinta and aspirin. 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 And we could stop the Brilinta after her 1 year but likely will like to keep her on it given her history of LAD stenting and history of coronary artery dissection. We could provide dental clearance if needed for extractions. We reviewed her lab work which showed favorable lipid panel and stable renal function. In office her blood pressure was stable at 126/80. Her EKG showed normal sinus rhythm with a heart rate of 61. She was recommended to decrease metoprolol succinate to 25 mg at bedtime. She was recommended to contact the office if she is not able to get Entresto at a lower pop so we can switch her to losartan. No other changes to her medications made at this time. We will see her in clinical follow-up in 2 to 3 months with an echo prior to that. As always, it is a pleasure seeing patients along with you. [email or web address] Not available 04/27/2023 17:27:34 07/28/2023 07/28/2023 IMPRESSION: Rosa continues to do well from a cardiology perspective. She has had no chest pain suggestive of recurrent angina and has no signs or symptoms of heart failure or arrhythmias. She continues to enjoy a full and active lifestyle. She had an echocardiogram performed in the office today that shows apical akinesis with an overall preserved ejection fraction of approximately 55-60%. I have asked her to continue with her current medical regimen at their current dosages, and I will see her back once again in clinical followup in three months. As always, it is a pleasure seeing patients along with you. Not available 07/28/2023 16:07:31 01/26/2024 01/26/2024 IMPRESSION: Rosa continues to do well from a cardiology perspective. She walks and does P90X most days of the week and has no cardiac symptoms doing these. Typically, she has no chest pain suggestive of angina and no signs or symptoms of either heart failure or arrhythmias. I have asked her to continue with her current medical regimen at their current dosages, and I will see her back once again in clinical followup in six months. As always, it is a pleasure seeing patients along with you. Not available 01/26/2024 16:23:18 Plan of Treatment Reminders Order Date Submit Date Provider Last Modified By Organization Details Last Modified Time Details Appointments Echo 60 2024 01:00P M [facility] Not available Not available Not available Any 15 2024 02:15P M Kurtis Cruz MD Not available Not available Not available Lab BMP, serum or plasma 2022 023 TAMARA [facility], [address], [place] [address], [place], [id number], 12/16/2022 13:51:17 AST/SGO T (aspart ate aminotr ansfera se), serum or plasma 2022 023 [email or web address] [facility], [address], [address], [place], [address], 07/21/2023 16:33:04 ALT (alanin e aminotr ansfera se), serum or plasma 2022 023 [email or web address] [facility], [address], [place], [address], 07/21/2023 16:33:10 lipid panel, serum 2022 023 TAMARA [facility], [address], [address], [place], [address], 04/30/2023 12:10:52 CK (creati ne kinase) , total, serum 2022 023 [email or web address] [facility], [address], [address], [place], [address], 07/21/2023 16:33:17 BMP, serum or plasma 2022 023 TAMARA [facility], [address] [facility], [address], [place], [address], 04/29/2023 16:03:39 lipid panel, serum 2023 024 [facility], [address] [place], [address], 07/28/2023 17:48:24 ALT (alanin e aminotr ansfera se), serum or plasma 2023 024 [facility], [address] [place], [address], 07/28/2023 17:48:24 AST/SGO T (aspart ate aminotr ansfera se), serum or plasma 2023 024 [facility], [address] [place], [address], 07/28/2023 17:48:24 BMP, serum or plasma 2023 024 [facility], [address] [place], [address], 07/28/2023 17:48:24 CK (creati ne kinase) , total, serum 2023 024 [facility], [address] [place], [address], 07/28/2023 17:48:24 lipid panel, serum 2023 024 [facility], [address] [place], [address], 01/27/2024 11:45:45 AST/SGO T (aspart ate aminotr ansfera se), serum or plasma 2023 024 [facility], [address] [place], [address], 01/27/2024 11:45:45 ALT (alanin e aminotr ansfera se), serum or plasma 2023 024 [facility], [address] [place], [address], 01/27/2024 11:45:46 BMP, serum or plasma 2023 024 [facility], [address] [place], [address], 01/27/2024 11:45:46 CK (creati ne kinase) , total, serum 2023 024 [facility], [address] [place], [address], 01/27/2024 11:45:46 Referral None recorde d. Procedures None recorde d. Surgeries None recorde d. Imaging electro cardiog [email or web address] 2022 023 [email or web address] In-Office Order, Internal Use Only DO Not Attach Compendium DO Not Attach Compendium, Do Not Delete/merge, 08/27/2022 15:55:02 electro cardiog [email or web address] 2022 023 [email or web address] In-Office Order, Internal Use Only DO Not Attach Compendium DO Not Attach Compendium, Do Not Delete/merge, 12/17/2022 17:36:24 US, echocar diogram , transth oracic, complet e, w/ color flow - 2D Color-f low and Doppler with contras t if clinica lly indicat ed accordi ng to protoco l. 2022 024 TAMARA Not available 07/30/2023 11:21:55 electro cardiog guanakito 2022 023 [email or web address] In-Office Order, Internal Use Only DO Not Attach Compendium DO Not Attach Compendium, Do Not Delete/merge, [id number] 04/25/2023 11:22:13 electro cardiog [email or web address] 2023 024 [email or web address] In-Office Order, Internal Use Only DO Not Attach Compendium DO Not Attach Compendium, Do Not Delete/merge, [id number] 07/28/2023 17:48:24 US, echocar diogram , transth oracic, complet e, w/ color flow - 2D Color-f low and Doppler with contras t if clinica lly indicat ed accordi ng to protoco l. 2023 024 rwholey Not available 01/26/2024 16:15:27 electro cardiog [email or web address] 2023 024 [email or web address] In-Office Order, Internal Use Only DO Not Attach Compendium DO Not Attach Compendium, Do Not Delete/merge, [id number] 01/26/2024 16:15:27 Medication Orders None recorde d. Patient TargetsNo targets recorded. Patient Instructions Encounter Date Encounter Id Patient Instructions Last Modified By Organization Details Last Modified Time 08/27/2022 [id number] chest pain: care instructions rwholey Not available 08/27/2022 15:55:02 A healthy lifestyle: care instructions rwholey Not available 08/27/2022 15:55:02 shortness of breath: care instructions rwholey Not available 08/27/2022 15:55:02 high blood pressure: care instructions rwholey Not available 08/27/2022 15:55:02 learning about high blood pressure rwholey Not available 08/27/2022 15:55:02 12/17/2022 [id number] A healthy lifestyle: care instructions rwholey Not available 12/17/2022 17:36:24 chest pain: care instructions rwholey Not available 12/17/2022 17:36:24 heart attack: care instructions rwholey Not available 12/17/2022 17:36:24 shortness of breath: care instructions rwholey Not available 12/17/2022 17:36:24 high blood pressure: care instructions rwholey Not available 12/17/2022 17:36:24 learning about high blood pressure rwholey Not available 12/17/2022 17:36:24 07/28/2023 [id number] high blood pressure: care instructions rwholey Not available 07/28/2023 17:48:24 learning about high blood pressure rwholey Not available 07/28/2023 17:48:24 01/26/2024 [id number] heart attack: care instructions rwholey Not available 01/26/2024 16:15:27 high blood pressure: care instructions rwholey Not available 01/26/2024 16:15:27 learning about high blood pressure rwholey Not available 01/26/2024 16:15:27 Reason for Referral None Reported. Results Created Date Observation Date Name Description Value Unit Range Abnormal Flag Note LastModifiedBy Organization Detail LastModifiedTime 08/28/19 [facility] No observ ation record ed. In-Office Order Internal Use Only DO Not Attach Compendium DO Not Attach Compendium, Do Not Delete/merge, [id number] 08/27/2022 14:02:47 08/29/19 23 08/27/2022 [facility] No observ ation record ed. BARCODE Not Available 2022 08:53:53 09/07/1908/27/2022 US, echoc ardio gram, trans thora cic, compl ete, w/ color flow No observ ation record ed. [email or web address] Not Available 2022 10:30:53 12/18/19 [facility] No observ ation record ed. In-Office Order Internal Use Only DO Not Attach Compendium DO Not Attach Compendium, Do Not Delete/merge, [id number] 12/17/2022 14:57:49 12/18/19 23 12/17/2022 [facility] rocar diogr am No observ ation record ed. BARCODE Not Available 2022 17:29:10 04/25/20 [facility] No observ ation record ed. [email or web address] In-Office Order Internal Use Only DO Not Attach Compendium DO Not Attach Compendium, Do Not Delete/merge, [id number] 04/25/2023 10:24:39 04/25/20 23 04/25/2023 elect rocar diogr am No observ ation record ed. BARCODE Not Available 2022 15:49:13 07/28/19 24 [facility] rocar diogr am No observ ation record ed. [email or web address] In-Office Order Internal Use Only DO Not Attach Compendium DO Not Attach Compendium, Do Not Delete/merge, [id number] 07/28/2023 13:53:39 07/29/19 24 07/28/2023 [facility] rocar diogr am No observ ation record ed. [email or web address] In-Office Order Internal Use Only DO Not Attach Compendium DO Not Attach Compendium, Do Not Delete/merge, [id number] 07/29/2023 09:02:08 07/30/19 24 07/28/2023 US, echoc ardio gram, trans thora cic, compl ete, w/ color flow No observ ation record ed. [email or web address] Not Available 08/25 21:11:48 01/26/20 24 [facility] No observ ation record ed. [email or web address] In-Office Order Internal Use Only DO Not Attach Compendium DO Not Attach Compendium, Do Not Delete/merge, [id number] 01/26/2024 14:33:20 01/26/20 24 01/26/2024 [facility] rocar diogr am No observ ation record ed. BARCODE Not Available 2023 15:49:23 Result Notes None recorded. 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 Active 2021 Not Available [facility] 4 19:30:34 Chest pain 40638380 Active 2021 Not Available [facility] 4 19:30:34 Dyspnea 585020429 Active 2021 Not Available [facility] 4 19:30:34 Benign essential hypertension 1090981 Active 2021 Not Available [facility] 4 19:30:34 Mixed hyperlipidemi a 899228889 Active 2021 Not Available [facility] 4 19:30:34 Old myocardial infarction 8117792 Active 2022 Not Available [facility] 4 19:30:34 Notes:Some problems listed i n Documents: #[id number], #[id number], #[id number] could not be added to this patient's chart. Please review these documents and add these problems to the patient's chart manually as needed. Problem Notes None recorded. Procedures Surgical History Date Name Laterality Status Provider Name and Address Organization Details Recorded Time 05/16/20 Coronary Stent Placement completed Julia Morillo [facility] 05/20/2022 10:23:16 hysterectomy completed Bhumika Benitez [facility] 05/29/2022 09:42:49 Imaging Results Imaging Date Name Status LastModified by Organization Details LastModified Time 08/27/2022 electrocardiogram completed In-Offi ce Order Internal Use Only DO Not Attach Compendium DO Not Attach Compendium, Do Not Delete/merge, [id number] 08/27/2022 14:02:47 08/27/2022 electrocardiogram completed BARCODE Informa tion not available 08/28/2022 08:53:53 08/27/2022 US, echocardiogram, transthoracic, complete, w/ color flow completed [email or web address] Information not available 09/06/2022 10:30:53 12/17/2022 electrocardiogram completed In-Offi ce Order Internal Use Only DO Not Attach Compendium DO Not Attach Compendium, Do Not Delete/merge, [id number] 12/17/2022 14:57:49 12/17/2022 electrocardiogram completed BARCODE Informa tion not available 12/17/2022 17:29:10 04/25/2023 electrocardiogram completed [email or web address] In-Offi ce Order Internal Use Only DO Not Attach Compendium DO Not Attach Compendium, Do Not Delete/merge, [id number] 04/25/2023 10:24:39 04/25/2023 electrocardiogram completed BARCODE Informa tion not available 04/25/2023 15:49:13 07/28/2023 electrocardiogram completed [email or web address] In-Offi ce Order Internal Use Only DO Not Attach Compendium DO Not Attach Compendium, Do Not Delete/merge, [id number] 07/28/2023 13:53:39 07/28/2023 electrocardiogram completed [email or web address] In-Offi ce Order Internal Use Only DO Not Attach Compendium DO Not Attach Compendium, Do Not Delete/merge, [id number] 07/29/2023 09:02:08 07/28/2023 US, echocardiogram, transthoracic, complete, w/ color flow completed [email or web address] Information not available 08/26/2023 21:11:48 01/26/2024 electrocardiogram completed [email or web address] In-Offi ce Order Internal Use Only DO Not Attach Compendium DO Not Attach Compendium, Do Not Delete/merge, [id number] 01/26/2024 14:33:20 01/26/2024 electrocardiogram completed BARCODE Informa tion not available 01/26/2024 15:49:23 Procedure Notes None recorded. Medical Equipment None Reported. Allergies Allergen ID Allergen Name Allergen Category Reaction Reaction Severity Criticality Documentation Date Start Date Code Code System Note Provider Name and Address Organization Details Recorded Time 563110 Medicinal product containin g penicilli n and acting as antibacte rial agent (product) medicatio n Not available Not available Not available 05/29/2022 20708 05 SNOMED Bhumika Ullstrom ronnie, [facility] 09:32:54 873785 Substance with sulfonami de structure and antibacte rial mechanism of action (substanc e) medicatio n Not available Not available Not available 05/29/2022 49642 8003 SNOMED Bhumika Ullstrom ronnie, [facility] 2 09:33:01 039942 Erythroci n medicatio n Not available Not available Not available 05/29/2022 36952 3 RxNorm Bhumika Ullstrom ronnie [facility] 2 09:33:16 004346 ampicilli n medicatio n Not available Not available Not available 05/29/2022 733 RxNorm Bhumika Benitez ronnie [facility] 2 09:40:56 [id number] [employer] environme nt,medica tion Not available Not available Not available 12/17/2022 51878 6 RxNorm Shivam Lund ronnie [facility] 3 14:57:01 Medications Name Sig Start Date Stop Date Status Note LastModified by Organization Details LastModified Time prior authoriza tion approval 08/13 completed Entresto , 08/12/24 Not Available Not Available Not Available Prior Authoriza tion Request - Medicatio ns 06/18 completed Entresto 24-26mg Not Available Not Available Not Available atorvasta tin 80 mg tablet TAKE 1 TABLET BY MOUTH EVERYDAY AT BEDTIME 2023 active Not Available Not Available Not Avai lable metoprolo l succinate ER 50 mg tablet,ex tended release 24 hr TAKE 1 TABLET BY MOUTH TWICE A DAY DIRECTED 2023 active Not Available Not Available Not Avai lable hydrochlo rothiazid e 50 mg tablet TAKE 1 TABLET BY MOUTH EVERY DAY 06/11 completed Not Available Not Available Not Available lisinopri l 20 mg tablet Take 1 tablet every day by oral route as directed . 06/11 completed Not Available Not Available Not Available aspirin 81 mg tablet,de layed release Take 1 tablet every day by oral route. 2021 active Not Available Not Available Not Avai lable benzonata te 100 mg capsule TAKE 1 CAPSULE BY MOUTH THREE TIMES A DAY 07/28 completed Not Available Not Available Not Available nitrofura ntoin macrocrys talat 100 mg capsule TAKE 1 CAPSULE ORALLY EVERY 12 HOURS FOR 7 DAYS MUST ADMINIST ER WITH A MEAL/HANNA D 07/28 completed Not Available Not Available Not Available nitroglyc keny 0.4 mg sublingua l tablet Place as needed by sublingu al route as needed. active Not Available Not Available No t Available methimazo le 5 mg tablet Take 1 tablet every day by oral route. active Not Available Not Available No t Available aspirin 81 mg chewable tablet CHEW 1 TABLET EVERY DAY 06/12 completed Not Available Not Available Not Available metoprolo l succinate ER 25 mg tablet,ex tended release 24 hr Take 1 tablet twice a day by oral route at bedtime. active Not Available Not Available No t Available albuterol sulfate HFA 90 mcg/actua tion aerosol inhaler INHALE 2 PUFFS EVERY 4 TO 6 HOURS NEEDED X14 DAYS 07/28 completed Not Available Not Available Not Available methimazo le 10 mg tablet TAKE 1/2 TABLET BY MOUTH DAILY 07/28 completed Not Available Not Available Not Available Vitamin D3 125 mcg (5,000 unit) tablet TAKE 1 TABLET BY MOUTH EVERY DAY 08/23 completed Not Available Not Available Not Available Brilinta 90 mg tablet TAKE 1 TABLET BY MOUTH TWICE A DAY DIRECTED 01/25 completed Not Available Not Available Not Available Entresto 24 mg-26 mg tablet TAKE 1 TABLET BY MOUTH TWICE A DAY 2023 active Not Available Not Available Not Avai lable aspirin 81 mg capsule Take 1 capsule every day by oral route as directed for 30 days. 06/12 completed Not Available Not Available Not Available Vitals Date Recorded Body height Body temperature Body mass index (BMI) Body weight Oxygen saturation Oxygen saturation in Arterial blood by Pulse oximetry Heart rate Systolic blood pressure Diastolic blood pressure Systolic blood pressure Diastolic blood pressure Provider Name and Address Organization Details Last Updated DateTime 3 165.1 cm 97.3 [degF] 29.3 kg/m2 74964.2 6 g 96 % 96 % 55 /min 126 mm[Hg] 98 mm[Hg] 122 mm[Hg] 84 mm[facility]Hg] [facility] 14:16:47 Date Recorded Body height Body mass index (BMI) Body weight Heart rate Systolic blood pressure Diastolic blood pressure Provider Name and Address Organization Details Last Updated DateTime 3 165.1 cm 29 kg/m2 89357.0 7 g 60 /min 130 mm[Hg] 80 mm[Hg] [facility] 3 15:06:34 Date Recorded Body height Body mass index (BMI) Body weight Heart rate Oxygen saturation Oxygen saturation in Arterial blood by Pulse oximetry Systolic blood pressure Diastolic blood pressure Provider Name and Address Organization Details Last Updated DateTime 3 165.1 cm 30.2 kg/m2 35636.6 2 g 61 /min 100 % 100 % 126 mm[Hg] 80 mm[Hg] Apoorva Hernandez [facility] 3 10:36:45 Date Recorded Body height Provider Name an d Address Organization Details Last Updated DateTime 07/28/2023 165.1 cm Amelie [email or web address] 07/28/2023 13:53:12 Date Recorded Body mass index (BMI) Body weight Oxygen saturation Oxygen saturation in Arterial blood by Pulse oximetry Heart rate Systolic blood pressure Diastolic blood pressure Provider Name and Address Organization Details Last Updated DateTime 4 29.6 kg/m2 01415.4 4 g 100 % 100 % 64 /min 136 mm[Hg] 80 mm[Hg] Amee Srivastava [facility] 4 14:33:50 Date Recorded Body height Body mass index (BMI) Body weight Oxygen saturation Oxygen saturation in Arterial blood by Pulse oximetry Heart rate Systolic blood pressure Diastolic blood pressure Provider Name and Address Organization Details Last Updated DateTime 4 165.1 cm 30.5 kg/m2 14777.1 2 g 100 % 100 % 67 /min 130 mm[Hg] 84 mm[Hg] [facility] 4 14:42:08 Social History Question Answer Notes LastModified by Organizat ion Details LastModified Time Tobacco Smoking Status Never Smoker Bhumika trujillo [facility] 05/29/2022 09:41:54 Do You Have An Advance Directive? No Information not available 08/27/2022 What Is Your Level Of Alcohol Consumption? None Information not available 05/29/2022 Are You Blind Or Do You Have Difficulty Seeing? No Information not available 08/27/2022 Is Blood Transfusion Acceptable In An Emergency? Yes Information not available 08/27/2022 What Is Your Level Of Caffeine Consumption? Occasional Information not available 08/27/2022 Are You Currently Employed? Yes Information not available 08/27/2022 Are You Deaf Or Do You Have Serious Difficulty Hearing? No Information not available 08/27/2022 What Type Of Diet Are You Following? 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 Right Information not available 08/27/2022 If Pulse Oximetry Was Done: Is The Patient's Sp02 Less Than 93% On Room Air? No Information not available 05/29/2022 What Was The Date Of Your Most Recent Tobacco Screening? 01/26/2024 Information not available 01/26/2024 Do You Have Any Pets? No Information not available 08/27/2022 What Is Your Relationship Status? Information not available 08/27/2022 Do You Feel Stressed (tense, Restless, Nervous, Or Anxious, Or Unable To Sleep At Night)? [id number] Information not available 08/27/2022 Do You Use Any Illicit Or Recreational Drugs? No Information not available 08/27/2022 Has Tobacco Cessation Counseling Been Provided? No [email or web address] Information not available 12/17/2022 Do You Or Have You Ever Used Any Other Forms Of Tobacco Or Nicotine? No Information not available 08/27/2022 Sex: Unknown Functional Status Question Answer Note LastModified by Organization D etails LastModified Time Are you able to care for yourself? Yes Information not available 08/27/2022 What is your exercise level? Moderate Information not available 05/29/2022 Mental Status None recorded. Family History Relationship Description Onset Age of this Age Resolved Age Notes LastModified by Organization Details LastModified Time Mother Atrial fibrillation [email or web address] Not available 14:31:19 Mother Family history of malignant neoplasm Not available 2022 14:02:03 Mother Hypertensive disorder Not available 2022 08:10:20 Mother Heart disease Not available 2022 14:02:03 Father Congestive heart failure API-27 Not available 06/27/ 2023 14:31:19 Father Hypertensive disorder Not available 2022 08:10:20 Father Heart disease Not available 2022 14:02:03 Father Diabetes mellitus Not available 2022 08:10:20 Father Myocardial infarction Not available 08/27 14:02:03 Father Kidney disease Not available 2022 14:02:03 Medical History Condition Response Heart Attack (Myocardial Infarction) Y High Blood Pressure (Hypertension) Y CAD (Coronary Artery Disease) Y Gynecological HistoryNo gynecological history recorded. Obstetrics History GPAL:G 0 P 0 0 0 0 Immunizations Vaccine Type Date Status Note Provider Nam e and Address Organization Details Recorded Time Influenza, MDCK, trivalent, PF 03/13/2024 completed Julia trujillo MA - [facility] 09:47:58 Past Encounters Encounter ID Performer Location Encounter Start Date Encounter Closed Date Diagnosis/Indication Diagnosis SNOMED-CT Code Diagnosis ICD10 Code [id number] [facility]is [email or web address] [address] 05/29/2022 09:22:53 05/29/2022 11:27:45 Coronary arteriosclerosis 37214201 I25.10 Dilated cardiomyopathy 605910368 I42.0 Chest pain 73624004 R07. 2 Dyspnea 177925776 R06.02 Benign ess ential hypertension 0112609 I10 Mixed hyperlipidemia 267 617319 E78.2 [id number] ROXANE Connor [address], [address] [address] 06/11/2022 06:44:52 06/11/2022 10:30:41 Benign essential hypertension 9548047 I10 Mixed hyperlipidemia 267 718676 E78.2 Dilated cardiomyopathy 999969772 I42.[id number] [address] 08/27/2022 13:18:18 08/27/2022 15:25:40 Benign essential hypertension 9729360 I10 Mixed hyperlipidemia 267 731035 E78.2 Coronary arteriosclerosis 09955868 I25.10 Dyspnea 555996590 R06.02 Chest pain 34851383 R07. 2 Dilated cardiomyopathy 631090849 I42.0 [id number] [facility] [address] [place] [address] 12/17/2022 14:31:17 12/17/2022 15:58:16 Benign essential hypertension 5239888 I10 Mixed hyperlipidemia 267 446832 E78.2 Coronary arteriosclerosis 10808456 I25.10 Chest pain 60555506 R07. 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 7910641 I25.2 [id number] [facility] [address] [place] [address] [place], [place] [address] 07/28/2023 13:23:52 07/28/2023 15:23:30 Coronary arteriosclerosis 84003878 I25.10 Benign ess ential hypertension 4521513 I10 Mixed hyperlipidemia 267 842784 E78.2 [id number] [facility] [address] [place] [address] 01/26/2024 14:09:04 01/26/2024 15:13:49 Benign essential hypertension 4228053 I10 Coronary arteriosclerosis 49454326 I25.10 Dilated cardiomyopathy 822530584 I42.0 Mixed hyperlipidemia 267 937407 E78.2 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 9182379 I25.2 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 9237497817 94316 I50.42 Health Concerns Section Related Observation LastModified by Organization Detai ls LastModified Time None Recorded Concern Status LastModified by Organization Details LastModified Time None Recorded Advance Directives Directive N: Payers Encounter Date Sequence Insurance Name Policy Number Policy Vargas Covered Member ID Vargas Member ID Guarantor Name 08/27/2022 1 [facility] [id number] Rosa Owens [id number] Rosa Rodriguez 12/17/2022 1 [facility] [id number] Rosa Owens [id number] Rosa Owenss 04/25/2023 1 [facility] [id number] Rosa Owens [id number] Rosa Owenss 07/28/2023 1 [facility] [id number] Rosa Owens [id number] Rosa Owenss 01/26/2024 1 [facility] [id number] Rosa Owens [id number] Rosa Rodriguez Notes Date Note Type Note Provider Name and Address Organization Details Recorded Time 04/25/2023 text/html Ms. Rosa Owens presents for follow-up. She has past medical history of CAD with LAD dissection s/p PCI to LAD x 2 on 05/16/2023, history of anterior infarct, hypertension and hyperlipidemia. Echocardiogram on 08/27/2022 reveals normal LV size and function, EF 55%, mildly dilated right atrium, mild MR, mild TR, PASP 35, trivial pulmonic regurg. Kasey Mckee, [facility], [address], [facility] - [facility]. 04/27/2023 17:27:57 OBGyn Episode No OBEpisode recorded.
== END 2024-06-17 14:31 | disposition home or self-care (01) ==
LOC: HO.MAMMO 14:30
PROVIDERS: PCP Family Medicine; Visit Provider Family Medicine
DX: Z12.31 Encounter for screening mammogram for malignant neoplasm of breast (principal)
CPT/HCPCS: 77063; 77067

== ENCOUNTER → 2024-06-17 16:30 | Outpatient (BNV) | payer OTHER, SELFPAY | PROVIDERS: PCP Family Medicine; Visit Provider Internal Medicine | DX: Z12.31 Encounter for screening mammogram for malignant neoplasm of breast (principal) | CPT/HCPCS: 77063; 77067 ==

== ENCOUNTER 2024-07-08 14:28 | Outpatient (AMB) | payer BC, SELFPAY ==
--- NOTE | 2024-07-08 14:37 | MHC.PC.OV ---
Vital Signs 07/08/24 14:41 Height 5 ft 5 in Weight 181 lb 2 oz BMI 30.1 BP 108/64 Blood Pressure Location Lt brachial Position Sitting Respiration 14 Pulse 73 Pulse Source Pulse Oximeter Temp 98.3 F Temp Source Oral Pulse Oximetry (%) 98 Oxygen Delivery Method Room Air Intake Visit Reasons: f/u chronic conditions, labs Intake Note: hyperlipidemia,?hyperthyroid?and vitamin-D?deficiency. Allergies ampicillin [AMPICILLIN] Allergy (Unknown, Verified 07/08/24 14:39) UNKNOWN, hives erythromycin base [ERYTHROMYCIN BASE] Allergy (Unknown, Verified 07/08/24 14:39) UNKNOWN Penicillins [PENICILLINS] Allergy (Unknown, Verified 07/08/24 14:39) UNKNOWN Sulfa (Sulfonamide Antibiotics) [SULFA (SULFONAMIDE ANTIBIOTICS)] Allergy (Unknown, Verified 07/08/24 14:39) UNKNOWN, rash Erythromycin Allergy (Unknown, Uncoded 10/21/23 16:08) rash Tobacco use date assessed: 11/06/23 Dental Screening Dental Screen Date: 10/21/23 HPI f/u chronic conditions, labs HPI Details 54 y/o female presents to f/u chronic conditions, labs. Labs drawn 04/19/24. Ongoing hematuria. Triglycerides 51. TC 101. LDL 48. HDL 43. HPI Comments History of Present Illness Details Documentation assistance for Steve Hernadez MD, was provided by Hal Vera,? [employer] on 07/08/2024 at 2:58 PM EST. I, Dr. Hernadez, have read, observed, and verified documentation. ?? 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 1. Little interest or pleasure in doing things: not at all 2. Feeling down, depressed, or hopeless: not at all 3. Trouble falling or staying asleep, or sleeping too much: not at all 4. Feeling tired or having little energy: not at all 5. Poor appetite or overeating: not at all 6. Feeling bad about yourself - or that you are a failure or have let yourself or your family down: not at all 7. Trouble concentrating on things, such as reading the newspaper or watching television: not at all 8. Moving or speaking so slowly that other people could have noticed. Or the opposite - being so fidgety or restless that you have been moving around a lot more than usual: not at all 9. Thoughts that you would be better off or of hurting yourself in some way: not at all Total score: 0 Source: Developed by Drs. Alan Srinivasan, Maile Mar, Pablo Rose and colleagues, with an educational pee from [employer]. Thrive Questionnaire Date Thrive assessed: 10/21/23 I am a: Patient What is your living situation today?: I have a steady place to live Within the past 12 months, did the food you bought not last and you didn't have the money to get more?: Never true Within the past 12 months, did you worry whether your food would run out before you got money to buy more?: Never true Do you have trouble paying for medicines?: No Do you have trouble getting transportation to medical appointments?: No Do you have trouble paying your heating and electricity bill?: No Do you have trouble taking care of your child, family member or friend?: No Do you have trouble with day-to-day activities such as bathing, preparing meals, shopping, managing finances, etc.?: No Are you currently unemployed and looking for a job?: No Are you interested in more education?: No Please select the resources that you would like help with: None Currently or been in a relationship where the following occur: No concerns reported THRIVE Score: 0 AUDIT C Alcohol Use Questionnaire (AUDIT-C) 1. How often do you have a drink containing alcohol?: Never Total Score: 0 JOVANNI-7 AMB Questionnaire JOVANNI-7 Date JOVANNI - 7 assessed: 10/21/23 Feeling nervous, anxious, or on edge: 0 = Not at all Not being able to stop or control worryin = Not at all Worrying too much about different things: 0 = Not at all Trouble relaxin = Not at all Being so restless that it is hard to sit still: 0 = Not at all Becoming easily annoyed or irritable: 0 = Not at all Feeling afraid as if something awful might happen: 0 = Not at all Total JOVANNI-7 score (0-4 normal; 5-9 mild; 10-14 moderate; 15-21 severe): 0 Source: Developed by Drs. Alan Srinivasan, Maile Mar, Pablo Rose and colleagues, with an educational pee from [employer]. Review of Systems Const Denies chills, Denies fatigue, Denies fever(s), Denies headache(s) and Denies weakness ENT Denies dizziness and Denies headache(s) Card Denies chest pain, Denies lightheadedness, Denies dyspnea and Denies other (Palpitations) Resp Denies cough, Denies dyspnea, Denies wheezing and Denies other ( shortness of breath) Musc Denies numbness and Denies tingling Neuro Denies dizziness, Denies headache(s), Denies numbness, Denies tingling, Denies paresthesias and Denies weakness Psych Denies anxiety and Denies depression Endo Denies fatigue Aller/Immun Denies wheezing Physical exam (Primary Care) Vital Signs: Last Vital Signs Temp 98.3 F 07/08/24 14:41 Pulse 73 07/08/24 14:41 Resp 14 07/08/24 14:41 BP 108/64 07/08/24 14:41 Pulse Ox 98 07/08/24 14:41 Oxygen Delivery Method Room Air 07/08/24 14:41 BMI result Body Mass Index 30.1 Tobacco/Smoking Status: Tobacco use Status Tobacco use date assessed 11/06/23 07/08/24 14:38 Patient Tobacco Use Status Never used Tobacco 07/08/24 14:38 e-Cigarette/Vaping Use Never Used 07/08/24 14:38 PHQ-9: PHQ-9 Score PHQ-9: Total score 0 07/08/24 14:57 Thrive Assessment: Date of Thrive Assessment Date Thrive assessed 10/21/23 07/08/24 14:38 Currently or been in a relationship where the following occur: No concerns reported Const General: no acute distress and well developed Nutritional Appearance: well nourished Orientation/consciousness: patient oriented x3 HENNJ Head: Yes normocephalic and Yes atraumatic Eyes General: appearance normal, both eyes and all related structures Pupils: Equal, round and reactive pupils present EOM: EOMs intact bilaterally Resp Effort & Inspection: normal respiratory effort Auscultation: clear to auscultation bilaterally Cardio Rate: regular rate Rhythm: regular rhythm Heart sounds: S1 normal heart sound present, S2 normal heart sound present, no gallops, no murmurs and no rubs Neuro General: patient oriented x3 and gait normal Cranial nerves: Yes Equal, round and reactive pupils present Psych Affect: normal affect Coding Level of Care Code Est Pt Level 3 (48794) Diagnoses Hematuria R31.9 Vitamin D deficiency E55.9 Hypercholesterolemia E78.00 Coronary artery disease I25.10 Assessment & Plan Assessment & Plan (1) Hematuria: Code(s): R31.9 - Hematuria, unspecified Category: Medical Plan: Patient?was?seen?at[facility] After?workup?he?feels?this?is?most?likely?benign?essential?hematuria. He?plans?to?follow-up?in?6?months?to?a?year?with?urine?cytology?and?FISH Will?continue?to?monitor (2) Vitamin D deficiency: Code(s): E55.9 - Vitamin D deficiency, unspecified Category: Medical Plan: Vitamin-D?is?within?normal?limits (3) Hypercholesterolemia: Code(s): E78.00 - Pure hypercholesterolemia, unspecified Category: Medical Plan: Cholesterol?is?well?controlled.??LDL?goal?is?less?than?70 Continue?current?medications (4) Coronary artery disease: Code(s): I25.10 - Atherosclerotic heart disease of [place] coronary artery without angina pectoris Category: Medical Plan: Followed?by?cardiology?at[facility] Continue?current?medication?regimen Follow-up?with?Cardiology?as?recommended
[2024-07-08 14:41] VITALS: BP 108/64; PULSE 73; RESP 14; TEMP 36.8; O2SAT 98; BMI 30.1
--- OUTSIDE RECORDS SUMMARY | 2024-07-08 19:13 | XMS_ITS | Data Portability ---
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 And we could stop the Brilinta after [...] or plasma 2022 023 TAMARA [facility], [address], [place] [address], [place], [address], 12/16/2022 13:51:17 AST/SGO T (aspart ate aminotr ansfera se), serum or plasma 2022 023 [email or web address] [facility], [address], [place] [address], [place], [address], 07/21/2023 16:33:04 ALT (alanin e aminotr ansfera se), serum or plasma 2022 023 [email or web address] [facility], [address], [place], [address], 07/21/2023 16:33:10 lipid panel, serum 2022 023 TAMARA [facility], [address], [place] [address], [place], [address], 04/30/2023 12:10:52 CK (creati ne kinase) , total, serum 2022 023 [email or web address] [facility], [address], [place] [address], [place], [address], 07/21/2023 16:33:17 BMP, serum or plasma 2022 023 TAMARA [facility], [address] [facility], [address], [place], [address], 04/29/2023 16:03:39 lipid panel, serum 2023 024 [facility], [address] [place], [address], 07/28/2023 17:48:24 ALT (alanin e aminotr ansfera se), serum or plasma 2023 024 [facility], [address] [place], [address], 07/28/2023 17:48:24 AST/SGO T (aspart ate aminotr ansfera se), serum or plasma 2023 024 [facility], [address] [place], [address], 07/28/2023 17:48:24 BMP, serum or plasma 2023 024 [facility], [address] [place], [address], 07/28/2023 17:48:24 CK (creati ne kinase) , total, serum 2023 024 [facility], [address] [place], [address], 07/28/2023 17:48:24 lipid panel, serum 2023 024 [facility], [address] [place], [address], 01/27/2024 11:45:45 AST/SGO T (aspart ate aminotr ansfera se), serum or plasma 2023 024 [facility], [address] [place], [address], 01/27/2024 11:45:45 ALT (alanin e aminotr ansfera se), serum or plasma 2023 024 [facility], [address] [place], [address], 01/27/2024 11:45:46 BMP, serum or plasma 2023 024 [facility], [address] [place], [address], 01/27/2024 11:45:46 CK (creati ne kinase) , total, serum 2023 024 [facility], [address] [place], [address], 01/27/2024 11:45:46 Referral None recorde d. Procedures [...] DO Not Attach Compendium, Do Not Delete/merge, [id number] 04/25/2023 11:22:13 electro cardiog [email or web address] 2023 024 [email or web address] In-Office Order, Internal Use Only DO Not Attach Compendium DO Not Attach Compendium, Do Not Delete/merge, [id number] 07/28/2023 17:48:24 US, echocar diogram , transth oracic, complet e, w/ color flow - 2D Color-f low and Doppler with contras t if clinica lly indicat ed accordi ng to protoco l. 2023 024 [email or web address] Not available 07/08/2024 10:48:36 electro cardiog guanakito 2023 024 [email or web address] In-Office Order, Internal Use Only DO Not Attach Compendium DO Not Attach Compendium, Do Not Delete/merge, [id number] 01/26/2024 16:15:27 Medication Orders None recorde d. Patient TargetsNo targets recorded. Patient Instructions Encounter Date Encounter Id Patient Instructions Last Modified By Organization Details Last Modified Time 08/27/2022 [id number] chest pain: care instructions rwholey Not available 08/27/2022 15:55:02 A healthy lifestyle: care instructions rwholey Not available 08/27/2022 15:55:02 shortness of breath: care instructions rwholey Not available 08/27/2022 15:55:02 high blood pressure: care instructions rwholey Not available 08/27/2022 15:55:02 learning about high blood pressure rwholey Not available 08/27/2022 15:55:02 12/17/2022 [id number] A healthy lifestyle: care instructions rwholey Not available 12/17/2022 17:36:24 chest pain: care instructions rwholey Not available 12/17/2022 17:36:24 heart attack: care instructions rwholey Not available 12/17/2022 17:36:24 shortness of breath: care instructions rwholey Not available 12/17/2022 17:36:24 high blood pressure: care instructions rwholey Not available 12/17/2022 17:36:24 learning about high blood pressure rwholey Not available 12/17/2022 17:36:24 07/28/2023 [id number] high blood pressure: care instructions rwholey Not available 07/28/2023 17:48:24 learning about high blood pressure rwholey Not available 07/28/2023 17:48:24 01/26/2024 [id number] heart attack: care instructions rwholey Not available 01/26/2024 16:15:27 high blood pressure: care instructions rwholey Not available 01/26/2024 16:15:27 learning about high blood pressure rwholey Not available 01/26/2024 16:15:27 Reason for Referral None Reported. Results Created Date Observation Date Name Description Value Unit Range Abnormal Flag Note LastModifiedBy Organization Detail LastModifiedTime 08/28/19 [facility] No observ ation record ed. In-Office Order Internal Use Only DO Not Attach Compendium DO Not Attach Compendium, Do Not Delete/merge, [id number] 08/27/2022 14:02:47 08/29/19 23 08/27/2022 [facility] No observ ation record ed. BARCODE Not Available 2022 08:53:53 09/07/1908/27/2022 US, echoc ardio gram, trans thora cic, compl ete, w/ color flow No observ ation record ed. [email or web address] Not Available 2022 10:30:53 12/18/19 [facility] No observ ation record ed. In-Office Order Internal Use Only DO Not Attach Compendium DO Not Attach Compendium, Do Not Delete/merge, [id number] 12/17/2022 14:57:49 12/18/19 23 12/17/2022 [facility] rocar diogr am No observ ation record ed. BARCODE Not Available 2022 17:29:10 04/25/20 [facility] No observ ation record ed. [email or web address] In-Office Order Internal Use Only DO Not Attach Compendium DO Not Attach Compendium, Do Not Delete/merge, [id number] 04/25/2023 10:24:39 04/25/20 23 04/25/2023 elect rocar diogr am No observ ation record ed. BARCODE Not Available 2022 15:49:13 07/28/19 24 [facility] rocar diogr am No observ ation record ed. [email or web address] In-Office Order Internal Use Only DO Not Attach Compendium DO Not Attach Compendium, Do Not Delete/merge, [id number] 07/28/2023 13:53:39 07/29/19 24 07/28/2023 [facility] rocar diogr am No observ ation record ed. [email or web address] In-Office Order Internal Use Only DO Not Attach Compendium DO Not Attach Compendium, Do Not Delete/merge, [id number] 07/29/2023 09:02:08 07/30/19 24 07/28/2023 US, echoc ardio gram, trans thora cic, compl ete, w/ color flow No observ ation record ed. [email or web address] Not Available 08/25 21:11:48 01/26/20 24 [facility] No observ ation record ed. [email or web address] In-Office Order Internal Use Only DO Not Attach Compendium DO Not Attach Compendium, Do Not Delete/merge, [id number] 01/26/2024 14:33:20 01/26/20 24 01/26/2024 [facility] rocar diogr am No observ ation record ed. BARCODE Not Available 2023 15:49:23 Result Notes None recorded. Problems Name Problem SNOMED Code Status Onset Date Resolution Date Notes Provider Name and Address Organization Details Recorded Time Coronary arteriosclero sis 34820614 Active 2021 Not Available [facility] 4 19:30:34 Dilated cardiomyopath y 048225699 Active 2021 Not Available [facility] 4 19:30:34 Chest pain 06771225 Active 2021 Not Available [facility] 4 19:30:34 Dyspnea 575310274 Active 2021 Not Available [facility] 4 19:30:34 Benign essential hypertension 6506074 Active 2021 Not Available [facility] 4 19:30:34 Mixed hyperlipidemi a 651293630 Active 2021 Not Available Counts include 234 beds at the [facility] 4 19:30:34 Old myocardial infarction 0347401 Active 2022 Not Available Counts include 234 beds at the [facility] 4 19:30:34 Notes:Some problems listed i n Documents: #[id number], #[id number], #[id number] could not be added to this patient's chart. Please review these documents and add these problems to the patient's chart manually as needed. Problem Notes None recorded. Procedures Surgical History Date Name Laterality Status Provider Name and Address Organization Details Recorded Time 05/16/20 Coronary Stent Placement completed Julia Morillo [facility] 05/20/2022 10:23:16 hysterectomy completed Bhumika Benitez [facility] 05/29/2022 09:42:49 Imaging Results Imaging Date Name Status LastModified by Organization Details LastModified Time 08/27/2022 electrocardiogram completed In-Offi ce Order Internal Use Only DO Not Attach Compendium DO Not Attach Compendium, Do Not Delete/merge, [id number] 08/27/2022 14:02:47 08/27/2022 electrocardiogram completed BARCODE Informa tion not available 08/28/2022 08:53:53 08/27/2022 US, echocardiogram, transthoracic, complete, w/ color flow completed [email or web address] Information not available 09/06/2022 10:30:53 12/17/2022 electrocardiogram completed In-Offi ce Order Internal Use Only DO Not Attach Compendium DO Not Attach Compendium, Do Not Delete/merge, [id number] 12/17/2022 14:57:49 12/17/2022 electrocardiogram completed BARCODE Informa tion not available 12/17/2022 17:29:10 04/25/2023 electrocardiogram completed [email or web address] In-Offi ce Order Internal Use Only DO Not Attach Compendium DO Not Attach Compendium, Do Not Delete/merge, [id number] 04/25/2023 10:24:39 04/25/2023 electrocardiogram completed BARCODE Informa tion not available 04/25/2023 15:49:13 07/28/2023 electrocardiogram completed [email or web address] In-Offi ce Order Internal Use Only DO Not Attach Compendium DO Not Attach Compendium, Do Not Delete/merge, [id number] 07/28/2023 13:53:39 07/28/2023 electrocardiogram completed [email or web address] In-Offi ce Order Internal Use Only DO Not Attach Compendium DO Not Attach Compendium, Do Not Delete/merge, [id number] 07/29/2023 09:02:08 07/28/2023 US, echocardiogram, transthoracic, complete, w/ color flow completed [email or web address] Information not available 08/26/2023 21:11:48 01/26/2024 electrocardiogram completed [email or web address] In-Offi ce Order Internal Use Only DO Not Attach Compendium DO Not Attach Compendium, Do Not Delete/merge, [id number] 01/26/2024 14:33:20 01/26/2024 electrocardiogram completed BARCODE Informa tion not available 01/26/2024 15:49:23 Procedure Notes None recorded. Medical Equipment None Reported. Allergies Allergen ID Allergen Name Allergen Category Reaction Reaction Severity Criticality Documentation Date Start Date Code Code System Note Provider Name and Address Organization Details Recorded Time 219790 Medicinal product containin g penicilli n and acting as antibacte rial agent (product) medicatio n Not available Not available Not available 05/29/2022 22022 05 SNOMED Bhumika Ullstrom ronnie, [facility] 2 09:32:54 339773 Substance with sulfonami de structure and antibacte rial mechanism of action (substanc e) medicatio n Not available Not available Not available 05/29/2022 47843 8003 SNOMED Bhuimka Ullstrom ronnie, [facility] 2 09:33:01 329633 Erythroci n medicatio n Not available Not available Not available 05/29/2022 95036 3 RxNorm Bhumika Ullstrom ronnie [facility] 2 09:33:16 642071 ampicilli n medicatio n Not available Not available Not available 05/29/2022 733 RxNorm Bhumika Benitez ronnie [facility] 2 09:40:56 095858 [employer] environme nt,medica tion Not available Not available Not available 12/17/2022 45386 6 RxNorm Shivam Lund ronnie [facility] 3 14:57:01 Medications Name Sig Start Date Stop Date Status Note LastModified by Organization Details LastModified Time Prior Authoriza tion Request - Medicatio ns 06/18 completed Entresto 24-26mg Not Available Not Available Not Available prior authoriza tion approval 08/13 completed Entresto , 08/12/24 Not Available Not Available Not Available atorvasta [...] Not Available Vitals Date Recorded Body height Provider Name an d Address Organization Details Last Updated DateTime 08/27/2022 165.1 cm Shivam Ashely [facility] [employer] 08/27/2022 14:02:24 Date Recorded Body temperature Provider Name a nd Address Organization Details Last Updated DateTime 08/27/2022 97.3 [degF] Shivam Ashely [facility] [employer] 08/27/2022 14:11:23 Date Recorded Body mass index (BMI) Body weight Provider Name and Address Organization Details Last Updated DateTime 08/27/2022 29.3 kg/m2 58016.26 g Shivam Ashely [facility] [employer] 08/27/2022 14:11:26 Date Recorded Oxygen saturation Oxygen saturation in Arterial blood by Pulse oximetry Provider Name and Address Organization Details Last Updated DateTime 08/27/2022 96 % 96 % Shivam Ashely [facility] [employer] 08/27/2022 14:11:30 Date Recorded Heart rate Provider Name an d Address Organization Details Last Updated DateTime 08/27/2022 55 /min Shivam Lund [facility] [employer] 08/27/2022 14:16:45 Date Recorded Body height Provider Name an d Address Organization Details Last Updated DateTime 12/17/2022 165.1 cm Shivam Lund [facility] [employer] 12/17/2022 14:57:13 Date Recorded Body mass index (BMI) Body weight Provider Name and Address Organization Details Last Updated DateTime 12/17/2022 29 kg/m2 37938.07 g Shivam Lund [facility] [employer] 12/17/2022 15:04:31 Date Recorded Heart rate Provider Name an d Address Organization Details Last Updated DateTime 12/17/2022 60 /min Shivam Lnud [facility] [employer] 12/17/2022 15:09:19 Date Recorded Body height Provider Name an d Address Organization Details Last Updated DateTime 04/25/[address] [facility] [employer] 04/25/2023 10:31:30 Date Recorded Body mass index (BMI) Body weight Provider Name and Address Organization Details Last Updated DateTime 04/25/2023 30.2 kg/m2 75935.62 g Apoorva Hernandez [facility] [employer] 04/25/2023 10:31:35 Date Recorded Heart rate Provider Name an d Address Organization Details Last Updated DateTime 04/25/2023 61 /min Apoorva Hernandez [facility] 04/25/2023 10:31:42 Date Recorded Oxygen saturation Oxygen saturation in Arterial blood by Pulse oximetry Provider Name and Address Organization Details Last Updated DateTime 04/25/2023 100 % 100 % Apoorva Hernandez [facility] [facility] [employer] 04/25/2023 10:31:47 Date Recorded Body height Provider Name an d Address Organization Details Last Updated DateTime 07/28/2023 165.1 cm Amelie Marcial [facility] [employer] 07/28/2023 13:53:12 Date Recorded Body mass index (BMI) Body weight Provider Name and Address Organization Details Last Updated DateTime 07/28/2023 29.6 kg/m2 60522.44 g Amee Srivastava [facility] 07/28/2023 14:31:52 Date Recorded Oxygen saturation Oxygen saturation in Arterial blood by Pulse oximetry Provider Name and Address Organization Details Last Updated DateTime 07/28/2023 100 % 100 % Amee Srivastava [facility] [facility] [employer] 07/28/2023 14:31:59 Date Recorded Heart rate Provider Name an d Address Organization Details Last Updated DateTime 07/28/2023 64 /min Amee Srivastava [facility] 07/28/2023 14:38:10 Date Recorded Body height Provider Name an d Address Organization Details Last Updated DateTime 01/26/2024 165.1 cm Amelie Aniket [facility] [employer] 01/26/2024 14:33:02 Date Recorded Body mass index (BMI) Body weight Provider Name and Address Organization Details Last Updated DateTime 01/26/2024 30.5 kg/m2 [address]96.[address] [facility] 01/26/2024 14:38:57 Date Recorded Oxygen saturation Oxygen saturation in Arterial blood by Pulse oximetry Provider Name and Address Organization Details Last Updated DateTime 01/26/2024 100 % 100 % [facility] 01/26/2024 14:39:03 Date Recorded Heart rate Provider Name an d Address Organization Details Last Updated DateTime 01/26/2024 67 /min Amelie Marcial [facility] [employer] 01/26/2024 14:45:05 Date Recorded Systolic blood pressure Diastolic blood pressure Provider Name and Address Organization Details Last Updated DateTime 08/27/2022 126 mm[Hg] 98 mm[Hg] Shivam Lund [facility] [employer] 08/27/2022 14:12:46 Date Recorded Systolic blood pressure Diastolic blood pressure Provider Name and Address Organization Details Last Updated DateTime 08/27/2022 122 mm[Hg] 84 mm[Hg] Rajeevanni Lund [facility] [employer] 08/27/2022 14:16:47 Date Recorded Systolic blood pressure Diastolic blood pressure Provider Name and Address Organization Details Last Updated DateTime 12/17/2022 130 mm[Hg] 80 mm[Hg] Rajeevanni Lund [facility] 12/17/2022 15:06:34 Date Recorded Systolic blood pressure Diastolic blood pressure Provider Name and Address Organization Details Last Updated DateTime 04/25/2023 126 mm[Hg] 80 mm[Hg] Apoorva Hernandez [facility] 04/25/2023 10:36:45 Date Recorded Systolic blood pressure Diastolic blood pressure Provider Name and Address Organization Details Last Updated DateTime 07/28/2023 136 mm[Hg] 80 mm[Hg] Amee Srivastava [facility] 07/28/2023 14:33:50 Date Recorded Systolic blood pressure Diastolic blood pressure Provider Name and Address Organization Details Last Updated DateTime 01/26/2024 130 mm[Hg] 84 mm[Hg] Amelie Marcial [facility] 01/26/2024 14:42:08 Social History Question Answer Notes LastModified by Organizat ion Details LastModified Time Tobacco Smoking Status [facility] 09:41:54 Do You Have An Advance [...] Of Your Most Recent Tobacco Screening? 01/26/2024 [email or web address] Information not available 01/26/2024 Do You Have Any Pets? No Information not available 08/27/2022 What Is Your Relationship Status? Information not available 08/27/2022 Do You Feel Stressed (tense, Restless, Nervous, Or Anxious, Or Unable To Sleep At Night)? [id number] Information not available 08/27/2022 Do You Use [...] Father Congestive heart failure [email or web address] Not available 2022 14:31:19 Father Hypertensive disorder Not available 2022 [...] PF 03/13/2024 completed Julia trujillo [place] - [facility]. 03/15/2024 09:47:58 Past Encounters Encounter ID Performer Location Encounter Start Date Encounter Closed Date Diagnosis/Indication Diagnosis SNOMED-CT Code Diagnosis ICD10 Code Diagnosis Note [id number] Kurits Cruz MD [facility] [address] 05/29/2022 09:22:53 05/29/2022 11:27:45 Coronary arteriosclerosis 38789928 I25.10 Dilated cardiomyopathy 794698490 I42.0 Chest pain 76771275 R07. 2 Dyspnea 645857341 R06.02 Benign ess ential hypertension 8400509 I10 Mixed hyperlipidemia 267 457756 E78.2 [id number] JOHN ConnorP-C [employer] [address] 06/11/2022 06:44:52 06/11/2022 10:30:41 Benign essential hypertension 0170490 I10 Blood pressure is stable we will change lisinopril hydrochlor othiazide to Entresto with a 2-day washout.BM P in a week Mixed hyperlipidemia 267 794348 E78.2 Continue statin and aspirin Dilated cardiomyopathy 148600277 I42.0 CHF stage 3, requiring her to stay out of work until symptoms have improved. No shortness of breath and minimal fatigue with minimal activity.S he is on Toprol and lisinopril with hydrochlor othiazide. We will stop the lisinopril for the next 2 days and she will start Entresto 24 to 26 mg twice daily on Friday.We will check a BMP in 1 week.Saroj lopez to monitor symptoms.Jackie e have given her a return to work letter from June 25 with limitation s of 5 hours a day.Rechec k echocardio gram in August 27, 2022 with followi up that same day with Dr Cruz [id number] [employer] [address] [place] [address] 08/27/2022 13:18:18 08/27/2022 15:25:40 Benign essential hypertension 7023698 I10 Mixed hyperlipidemia 267 728205 E78.2 Coronary arteriosclerosis 79518674 I25.10 Dyspnea 050992492 R06.02 Chest pain 56211349 R07. 2 Dilated cardiomyopathy 590827939 I42.0 [id number] [facility] - [address], [address] [place] [address] 12/17/2022 14:31:17 12/17/2022 15:58:16 Benign essential hypertension 1823360 I10 Mixed hyperlipidemia 267 051384 E78.2 Coronary arteriosclerosis 52011727 I25.10 Chest pain 13875145 R07. 2 Dyspnea 626826511 R06.02 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 2145728 I25.2 [id number] Kasey Mckee, MAINTENANCE TECHNICIAN-BC [facility] [address] [place] [address] 04/25/2023 10:08:12 04/25/2023 11:18:16 Coronary arteriosclerosis 12972343 I25.10 - Continue Brilinta 90 mg twice a day and aspirin 81 mg daily- Continue atorvastat in 80 mg at bedtime- Continue Entresto 24/26 mg 1 tab twice a day- Decrease metoprolol succinate to 25 mg at bedtime Dilated cardiomyopathy 452590021 I42.0 - Continue Entresto 24/26 mg 1 tab twice a day- Decrease metoprolol succinate to 25 mg at bedtime Benign ess ential hypertension 4266632 I10 - Continue Entresto 24/26 mg 1 tab twice a day- Decrease metoprolol succinate to 25 mg at bedtime Mixed hyperlipidemia 267 511035 E78.2 - Continue atorvastat in 80 mg at bedtime 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 2486712 I25.2 [id number] [facility] [address] [place] [address] [address], [place] [address] 07/28/2023 13:23:52 07/28/2023 15:23:30 Coronary arteriosclerosis 96888850 I25.10 Benign ess ential hypertension 8481241 I10 Mixed hyperlipidemia 267 799065 E78.2 [id number] [facility] [address] [facility],[address] [place] [address] 01/26/2024 14:09:04 01/26/2024 15:13:49 Benign essential hypertension 9979768 I10 Coronary arteriosclerosis 89556823 I25.10 Dilated cardiomyopathy 642086945 I42.0 Mixed hyperlipidemia 267 799961 E78.2 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 7857426 I25.2 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 1627269881 37936 I50.42 Health Concerns Section Related Observation LastModified by Organization Detai ls LastModified Time None Recorded Concern Status LastModified by Organization Details LastModified Time None Recorded Advance Directives Directive N: Payers Encounter Date Sequence Insurance Name Policy Number Policy Vargas Covered Member ID Vargas Member ID Guarantor Name 08/27/2022 1 [facility] [id number] Rosa Owens [id number] Rosa Rodriguez 12/17/2022 1 [facility] [id number] Rosa Wood [id number] Rosa Rodriguez 04/25/[address] [place] [address] [id number] Rosa Wood [id number] Rosa Rodriguez 07/28/2023 1 [facility] [id number] Rosa Wood [id number] Rosa Rodriguez 01/26/2024 1 [facility] [id number] Rosa Wood [id number] Rosa Rodriguez Notes Date Note Type Note [...] PASP 35, trivial pulmonic regurg. Kasey Mckee, MAINTENANCE TECHNICIAN- [address] [place], [address], [facility] - [facility]. 04/27/2023 17:27:57 OBGyn Episode No OBEpisode recorded.
== END 2024-07-08 14:59 | disposition home or self-care (01) ==
PROVIDERS: PCP Family Medicine; Visit Provider Family Medicine
DX: R31.9 Hematuria, unspecified (principal); E55.9 Vitamin D deficiency, unspecified; E78.00 Pure hypercholesterolemia, unspecified; I25.10 Atherosclerotic heart disease of native coronary artery without angina pectoris

== ENCOUNTER → 2024-07-08 14:28 | Outpatient (BNVA) | payer BC, SELFPAY | PROVIDERS: PCP Family Medicine; Visit Provider Family Medicine ==

== ENCOUNTER 2025-01-18 15:22 | Outpatient (AMB) | payer BC, SELFPAY ==
--- OUTSIDE RECORDS SUMMARY | 2025-01-18 16:12 | XMS_ITS | Encounter Summary ---
Author Organization [facility] Address [address] [place] [address] Care Team Providers Care Risk Investigator Name Role Phone Steve Hernadez MD Primary Care Provider Encounter Details Date Type Department Care Team (Late st Contact Info) Description 07/13/2024 Lab Requisition [facility] - Main Lab [address] [place] [address] Nikos Fischer MD [address] [facility] [address] [place] [address] Other microscopic hematuria Social History Tobacco Use Types Packs/Day Years Used Date Smoking Tobacco: Never Smokeless Tobacco: Never Alcohol Use Standard Drinks/Week Comments Not Currently 0 (1 standard drink = 0.6 oz pur e alcohol) Comments Unknown Sex and Gender Information Value Date Recorded Sex Assigned at Not on file Legal Sex Female 10:24 AM EST Gender Identity Not on file Sexual Orientation Not on file documented as of this encounter Plan of Treatment Not on file documented as of this encounter Procedures Procedure Name Priority Date/Time Associated Diagnosis Comments AP OUTSIDE CONSULT Routine 07/06/2024 12 :00 AM EST Other microscopic hematuria documented in this encounter Results * Anatomic pathology outside consult (07/06/2024 12:00 AM EST) Final Diagnosis Urine, Voided, ([id number]): Negative for high grade urothelial carcinoma. 07/21/2024 8:37 AM EST [facility]) [facility] Clinical Information Other microscopic hematuria R31.29 Urine cytology with reflex UroVysion (AUC/SHGUC) 07/21/2024 8:37 AM EST [facility] Gross Description A. Urine, Voided, ([id number]): Received one ThinPrep slide for cytology. 07/21/2024 8:37 AM [facility] Disclaimer Unless otherwise specified, all tissue is 10% NB formalin fixed and paraffin embedded. Technical pathology services provided by [facility] [address] [facility] [address] [place] [address] (CLIA #[id number]/Sa main Suárez MD, Section Maintainer) 07/21/2024 8:37 AM [facility] Tissue Urine specimen from urethra / Unknown 07/06/2024 07/13/2024 7:12 AM EST us Nikos Fischer MD LAB PATHOLOGY ORDERABLES Fi nal Result [facility] [address] [place] [address], documented in this encounter Visit Diagnoses Diagnosis Other microscopic hematuria documented in this encounter Care Teams Risk Investigator Relationship Specialty Start Date End Date Steve Hernadez MD [address] [place] [address] Dr Harish [place] PCP - General 04/23/23 documented as of this encounter
--- OUTSIDE RECORDS SUMMARY | 2025-01-18 16:12 | XMS_ITS | Clinical Summary ---
Author Organization [facility] Address [address] [place] [address] Care Team Providers Care Bark Scaler Name Role Phone Lupillo Pineda Primary Care Provider [phone] Allergies Active Allergy Reactions Criticality Noted Date Comments Ampicillin 03/02/2016 Erythromycin 03/02/2016 Penicillins 03/02/2016 Sulfur 03/02/2016 Medications HydroCHLOROthiaz denise 25 MG Tab 1 TABLET DAILY Active Active Problems No known active problems Immunizations Immunization Administration Dates Next Due PPD/TST (Tuberculin Skin Test) 12/11/1992 Td (adult), adsorbed 12/11/1992 Social History Tobacco Use Types Packs/Day Years Used Date Smoking Tobacco: Never Alcohol Use Standard Drinks/Week Comments Not Asked 0 (1 standard drink = 0.6 oz pur e alcohol) Comments No Sex and Gender Information Value Date Recorded Sex Assigned at Not on file Legal Sex Female 2:02 PM EDT Gender Identity Not on file Sexual Orientation Not on file Last Filed Vital Signs Vital Sign Reading Time Taken Comments Blood Pressure 131/84 03/02/2016 2:55 PM EDT Pulse 69 03/02/2016 2:55 PM EDT Temperature 37.2 C (98.9 F) 03/02/2016 2:55 PM EDT Respiratory Rate 16 03/02/2016 2:55 PM EDT Oxygen Saturation - - Inhaled Oxygen Concentration - - Weight - - Height - - Body Mass Index - - Plan of Treatment Health Maintenance Due Date Last Done Comments Hepatitis C Screening 1972 Pap Smear 1988 Hep B (1 of 3 - 19+ 3-dose series) 02/04/1991 DTaP/Tdap/Td (1 - Tdap) 12/12/1992 12/11/1992 Mammogram/Breast Imaging 2012 Pneumococcal 50+ years (1 of 1 - PCV) 02/04/2022 Zoster (Shingrix) (1 of 2) 02/04/2022 COVID-19 Vaccine (1 - 2023-2 5 season) 2024 Influenza (#1) 2025 HPV Vaccine (No Doses Required) Completed Hep A Aged Out No longer eligi ble based on patient's age to complete this topic Hib Aged Out No longer eligi ble based on patient's age to complete this topic Meningococcal ACWY Aged Out No longer eligible based on patient's age to complete this topic Care Teams Bark Scaler Relationship Specialty Start Date End Date Lupillo Pineda [address] [place] [address] DR [place], [place] [address] PCP - General Internal Medicine 03/02/16
--- OUTSIDE RECORDS SUMMARY | 2025-01-18 16:12 | XMS_ITS | Data Portability ---
Author Organization [facility] icomply, svmg_admin Address [address] [place] [id number] Care Team Providers Care Balance Sheet Analyst Name Role Phone TAMY MEJÍA Primary Care Provider [phone] KURTIS CRUZ Fountain Dispenser EMMA CARTER Kai [place] Assessment Encounter Date Assessment Date Assessment LastModified by Organization Details LastModified Time 12/17/2022 12/17/2022 IMPRESSION: Rosa continues to do [...] that she would continue the aspirin for nursing home. And we could stop the Brilinta after [...] along with you. Not available 01/26/2024 16:23:18 08/03/2024 08/03/2024 IMPRESSION: Rosa continues to do well from a cardiology perspective. She has had no chest pain suggestive of recurrent angina and has had no signs or symptoms of heart failure or arrhythmias. She continues to enjoy a full and active lifestyle. Her left ventricular ejection fraction has normalized to 55-60% and I told her I would recommend to continue with her current medical regimen at their current dosages including Entresto. I have asked her to see her back once again in clinical followup in 6 months with updated blood work. As always, it is a pleasure seeing patients along with you. Not available 08/03/2024 16:15:16 Plan of Treatment Reminders Order Date Submit Date Provider Last Modified By Organization Details Last Modified Time Details Appointments Any 15 2024 03:15P Bienvenido Cruz MD Not available Not available Not available Lab BMP, serum or plasma 2024 025 [place] [facility], [address] [facility] [address], [place], [address], 09/11/2024 12:05:53 lipid panel, serum 2024 025 [place] [facility], [facility] [address], [address], [place], [address], 09/11/2024 12:05:54 ALT (alanine aminotran sferase), serum or plasma 2024 025 [place] [facility], [facility] [address], [address], [place], [address], 09/11/2024 12:05:56 AST/SGOT (aspartat e aminotran sferase), serum or plasma 2024 025 [place] [facility], [address] [facility] [address], [place], [address], 09/11/2024 12:05:55 CK (creatine kinase), total, serum 2024 025 [place] [facility], [address] [facility] [address], [place], [address], 09/11/2024 12:05:54 lipid panel, serum 2023 024 [email or web address] [facility] (Centralized Electronic Ordering - All Locations), Patient Can Go To The Location Of Their Choice, 07/22/2024 09:57:34 ALT (alanine aminotran sferase), serum or plasma 2023 024 [email or web address] [facility] (Centralized Electronic Ordering - All Locations), Patient Can Go To The Location Of Their Choice, 07/22/2024 09:57:34 AST/SGOT (aspartat e aminotran sferase), serum or plasma 2023 024 [email or web address] [facility] (Centralized Electronic Ordering - All Locations), Patient Can Go To The Location Of Their Choice, 07/22/2024 09:57:34 BMP, serum or plasma 2023 024 [email or web address] [facility] ([facility]ized Electronic Ordering - All Locations), Patient Can Go To The Location Of Their Choice, 07/22/2024 09:57:34 CK (creatine kinase), total, serum 2023 024 [email or web address] [facility] ([facility] Ordering - All Locations), Patient Can Go To The Location Of Their Choice, 07/22/2024 09:57:34 AST/SGOT (aspartat e aminotran sferase), serum or plasma 2022 023 [email or web address] [facility], [address] [place] [address], [place], [address], 07/21/2023 16:33:04 ALT (alanine aminotran sferase), serum or plasma 2022 023 [email or web address] [facility], [address] [place] [address], [place], [address], 07/21/2023 16:33:10 lipid panel, serum 2022 023 TAMARA [facility], [address] [place] [address], [place], [address], 04/30/2023 12:10:52 CK (creatine kinase), total, serum 2022 023 [email or web address] [facility], [address], [place] [address], [place], [address], 07/21/2023 16:33:17 BMP, serum or plasma 2022 023 TAMARA [facility], [address], [address], [place], [place], [address], 04/29/2023 16:03:39 Referral None recorded. Procedures None recorded. Surgeries None recorded. Imaging electroca rdiogram 2024 025 [email or web address] In-Office Order, Internal Use Only DO Not Attach Compendium DO Not Attach Compendium, Do Not Delete/merge, [id number] 08/03/2024 16:31:49 US, echocardi ogram, transthor acic, complete, w/ color flow - 2D Color-kristopher w and Doppler with contrast if clinicall y indicated according to protocol. 2023 024 TAMARA Not available 08/04/2024 09:24:47 electroca rdiogram 2023 024 [email or web address] In-Office Order, Internal Use Only DO Not Attach Compendium DO Not Attach Compendium, Do Not Delete/merge, [id number] 01/26/2024 16:15:27 electroca rdiogram 2023 024 [email or web address] In-Office Order, Internal Use Only DO Not Attach Compendium DO Not Attach Compendium, Do Not Delete/merge, [id number] 07/28/2023 17:48:24 US, echocardi ogram, transthor acic, complete, w/ color flow - 2D Color-kristopher w and Doppler with contrast if clinicall y indicated according to protocol. 2022 024 TAMARA Not available 07/30/2023 11:21:55 electroca rdiogram 2022 023 [email or web address] In-Office Order, Internal Use Only DO Not Attach Compendium DO Not Attach Compendium, Do Not Delete/merge, [id number] 04/25/2023 11:22:13 electroca rdiogram 2022 023 [email or web address] In-Office Order, Internal Use Only DO Not Attach Compendium DO Not Attach Compendium, Do Not Delete/merge, [id number] 12/17/2022 17:36:24 Medication Orders None recorded. Patient TargetsNo targets recorded. Patient Instructions Encounter Date Encounter Id Patient Instructions Last Modified By Organization Details Last Modified Time 12/17/2022 [id number] A healthy lifestyle: care instructions rwholey Not available 12/17/2022 17:36:24 chest pain: care instructions rwholey Not available 12/17/2022 17:36:24 heart attack: care instructions rwholey Not available 12/17/2022 17:36:24 shortness of breath: care instructions rwholey Not available 12/17/2022 17:36:24 high blood pressure: care instructions rwholey Not available 12/17/2022 17:36:24 learning about high blood pressure rwholey Not available 12/17/2022 17:36:24 07/28/2023 [id number] high blood pressure: care instructions rwholey Not available 07/28/2023 17:48:24 learning about high blood pressure rwholey Not available 07/28/2023 17:48:24 01/26/2024 [id number] heart attack: care instructions rwholey Not available 01/26/2024 16:15:27 high blood pressure: care instructions rwholey Not available 01/26/2024 16:15:27 learning about high blood pressure rwholey Not available 01/26/2024 16:15:27 08/03/2024 [id number] heart attack: care instructions rwholey Not available 08/03/2024 16:31:49 high blood pressure: care instructions rwholey Not available 08/03/2024 16:31:49 learning about high blood pressure rwholey Not available 08/03/2024 16:31:49 Reason for Referral None Reported. Results Created Date Observation Date Name Description Value Unit Range Abnormal Flag Note LastModifiedBy Organization Detail LastModifiedTime 07/27/1907/28/2024 CHOL+ TRIG+ HDL+L DL-D cholesterol, total 113 mg/dL 100-19 9 normal Not Available [facility] ([facility]) [address] [place], [address], 07/28/2024 13:06:16 07/27/19 25 07/28/2024 CHOL+ TRIG+ HDL+L DL-D triglyceride s 69 mg/dL 0-149 normal Not Available [facility] ([facility]) [address] [place], [address], 07/28/2024 13:06:16 07/27/19 25 07/28/2024 CHOL+ TRIG+ HDL+L DL-D HDL cholesterol 49 mg/dL >39 normal Not Available [facility] ([facility]) [address] [place], [address], 07/28/2024 13:06:16 07/27/19 25 07/28/2024 CHOL+ TRIG+ HDL+L DL-D LDL chol. (direct) 52 mg/dL 0-99 Not Available [facility] ([facility]) [address] [place], [address], 07/28/2024 13:06:16 07/27/19 25 07/28/2024 CHOL+ TRIG+ HDL+L DL-D LDL direct comment: PLACEMENT SPECIALIST Not Available [facility] ([facility]) [address] [place], [address], 07/28/2024 13:06:16 07/27/19 25 07/28/2024 BASIC METAB OLIC PANEL (8) glucose 83 mg/dL 70-99 normal Not Available [facility] ([facility]) [address] [place], [address], 07/28/2024 13:06:16 07/27/19 25 07/28/2024 BASIC METAB OLIC PANEL (8) BUN 12 mg/dL 6-24 normal Not Available [facility] ([facility]) [address] [facility] [place], [address], 07/28/2024 13:06:16 07/27/19 25 07/28/2024 BASIC METAB OLIC PANEL (8) creatinine 0.80 mg/dL 0.57-1 .00 normal Not Available [facility] ([facility]) [address] [facility] [place], [address], 07/28/2024 13:06:16 07/27/19 25 07/28/2024 BASIC METAB OLIC PANEL (8) eGFR 89 mL/mi n/1.7 3 >59 normal Not Available [facility] ([facility]) [address] [facility] [place], [address], 07/28/2024 13:06:16 07/27/19 25 07/28/2024 BASIC METAB OLIC PANEL (8) BUN/creatini ne ratio 15 9-23 normal Not Available [facility] ([facility]) [address] [facility] [place], [address], 07/28/2024 13:06:16 07/27/19 25 07/28/2024 BASIC METAB OLIC PANEL (8) sodium 141 mmol/ L 134-14 4 normal Not Available [facility] ([facility]) [address] [facility] [place], [address], 07/28/2024 13:06:16 07/27/19 25 07/28/2024 BASIC METAB OLIC PANEL (8) potassium 3.7 mmol/ L 3.5-5. 2 normal Not Available [facility] ([facility]) [address] [facility] [place], [address], 07/28/2024 13:06:16 07/27/19 25 07/28/2024 BASIC METAB OLIC PANEL (8) chloride 104 mmol/ L 96-106 normal Not Available [facility] ([facility]) [address] [facility] [place], [address], 07/28/2024 13:06:16 07/27/19 25 07/28/2024 BASIC METAB OLIC PANEL (8) carbon dioxide, total 22 mmol/ L 20-29 normal Not Available [facility] ([facility]) [address] [place], [address], 07/28/2024 13:06:16 07/27/19 25 07/28/2024 BASIC METAB OLIC PANEL (8) calcium 9.3 mg/dL 8.7-10 .2 normal Not Available [facility] ([facility]) [address] [place], [address], 07/28/2024 13:06:16 07/27/19 25 07/28/2024 CK creatine kinase,total 108 U/L 32-182 normal Not Available [facility] ([facility]) [address] [place], [address], 07/28/2024 13:06:16 07/27/19 25 07/28/2024 AST (SGOT ) AST (SGOT) 24 IU/L 0-40 normal Not Available [facility] ([facility]) [address] [place], [address], 07/28/2024 13:06:17 07/27/19 25 07/28/2024 ALT (SGPT ) ALT (SGPT) 25 IU/L 0-32 normal Not Available [facility] ([facility]) [address] [place], [address], 07/28/2024 13:06:17 09/11/19 25 09/11/2024 BASIC METAB OLIC PANEL (8) glucose 74 mg/dL 70-99 normal Not Available [facility] ([facility]) [address] [place], [address], 09/11/2024 12:05:53 09/11/19 25 09/11/2024 BASIC METAB OLIC PANEL (8) BUN 14 mg/dL 6-24 normal Not Available [facility] ([facility]) [address] [facility] [place], [address], 09/11/2024 12:05:53 09/11/19 25 09/11/2024 BASIC METAB OLIC PANEL (8) creatinine 0.84 mg/dL 0.57-1 .00 normal Not Available [facility] ([facility]) [address] [facility] [place], [address], 09/11/2024 12:05:53 09/11/19 25 09/11/2024 BASIC METAB OLIC PANEL (8) eGFR 84 mL/mi n/1.7 3 >59 normal Not Available [facility] ([facility]) [address] [facility] [place], [address], 09/11/2024 12:05:53 09/11/19 25 09/11/2024 BASIC METAB OLIC PANEL (8) BUN/creatini ne ratio 17 9-23 normal Not Available [facility] ([facility]) [address] [facility] [place], [address], 09/11/2024 12:05:53 09/11/19 25 09/11/2024 BASIC METAB OLIC PANEL (8) sodium 141 mmol/ L 134-14 4 normal Not Available [facility] ([facility]) [address] [facility] [place], [address], 09/11/2024 12:05:53 09/11/19 25 09/11/2024 BASIC METAB OLIC PANEL (8) potassium 4.2 mmol/ L 3.5-5. 2 normal Not Available [facility] ([facility]) [address] [facility] [place], [address], 09/11/2024 12:05:53 09/11/19 25 09/11/2024 BASIC METAB OLIC PANEL (8) chloride 104 mmol/ L 96-106 normal Not Available [facility] ([facility]) [address] [facility] [place], [address], 09/11/2024 12:05:53 09/11/19 25 09/11/2024 BASIC METAB OLIC PANEL (8) carbon dioxide, total 19 mmol/ L 20-29 below low normal Not Available [facility] ([facility]) [address] [place], [address], 09/11/2024 12:05:53 09/11/19 25 09/11/2024 BASIC METAB OLIC PANEL (8) calcium 8.8 mg/dL 8.7-10 .2 normal Not Available [facility] ([facility]) [address] [place], [address], 09/11/2024 12:05:53 09/11/19 25 09/11/2024 LIPID PANEL cholesterol, total 109 mg/dL 100-19 9 normal Not Available [facility] ([facility]) [address] [place], [address], 09/11/2024 12:05:54 09/11/19 25 09/11/2024 LIPID PANEL triglyceride s 92 mg/dL 0-149 normal Not Available [facility] ([facility]) [address] [place], [address], 09/11/2024 12:05:54 09/11/19 25 09/11/2024 LIPID PANEL HDL cholesterol 51 mg/dL >39 normal Not Available [facility] ([facility]) [address] [place], [address], 09/11/2024 12:05:54 09/11/19 25 09/11/2024 LIPID PANEL VLDL cholesterol praneeth 18 mg/dL 5-40 Not Available [facility] ([facility]) [address] [place], [address], 09/11/2024 12:05:54 09/11/19 25 09/11/2024 LIPID PANEL LDL chol calc ([facility]) 40 mg/dL 0-99 Not Available [facility] ([facility]) [address] [place], [address], 09/11/2024 12:05:54 09/11/19 25 09/11/2024 LIPID PANEL LDL calc comment: PLACEMENT SPECIALIST Not Available [facility] ([facility]) [address] [place], [address], 09/11/2024 12:05:54 09/11/19 25 09/11/2024 CK creatine kinase,total 92 U/L 32-182 normal Not Available [facility] ([facility]) [address] [place], [address], 09/11/2024 12:05:54 09/11/19 25 09/11/2024 AST (SGOT ) AST (SGOT) 24 IU/L 0-40 normal Not Available [facility] ([facility]) [address] [place], [address], 09/11/2024 12:05:55 09/11/19 25 09/11/2024 ALT (SGPT ) ALT (SGPT) 26 IU/L 0-32 normal Not Available [facility] ([facility]) [address] [place], [address], 09/11/2024 12:05:55 01/15/20 25 01/15/2025 CHOL+ TRIG+ HDL+L DL-D cholesterol, total 104 mg/dL 100-19 9 normal Not Available [facility] ([facility]) [address] [place], [address], 01/15/2025 11:05:29 01/15/20 25 01/15/2025 CHOL+ TRIG+ HDL+L DL-D triglyceride s 71 mg/dL 0-149 normal Not Available [facility] ([facility]) [address] [place], [address], 01/15/2025 11:05:29 01/15/20 25 01/15/2025 CHOL+ TRIG+ HDL+L DL-D HDL cholesterol 50 mg/dL >39 normal Not Available [facility] ([facility]) [address] [place], [address], 01/15/2025 11:05:29 01/15/20 25 01/15/2025 CHOL+ TRIG+ HDL+L DL-D LDL chol. (direct) 45 mg/dL 0-99 Not Available [facility] ([facility]) [address] [place], [address], 01/15/2025 11:05:29 01/15/2001/15/2025 CHOL+ TRIG+ HDL+L DL-D LDL direct comment: PLACEMENT SPECIALIST Not Available [facility] ([facility]) [address] [place], [address], 01/15/2025 11:05:29 01/15/2001/15/2025 BASIC METAB OLIC PANEL (8) glucose 77 mg/dL 70-99 normal Not Available [facility] ([facility]) [address] [place], [address], 01/15/2025 11:05:31 01/15/2001/15/2025 BASIC METAB OLIC PANEL (8) BUN 15 mg/dL 6-24 normal Not Available [facility] ([facility]) [address] [place], [address], 01/15/2025 11:05:31 01/15/2001/15/2025 BASIC METAB OLIC PANEL (8) creatinine 0.67 mg/dL 0.57-1 .00 normal Not Available [facility] ([facility]) [address] [place], [address], 01/15/2025 11:05:31 01/15/2001/15/2025 BASIC METAB OLIC PANEL (8) eGFR 105 mL/mi n/1.7 3 >59 normal Not Available [facility] ([facility]) [address] [place], [address], 01/15/2025 11:05:31 01/15/2001/15/2025 BASIC METAB OLIC PANEL (8) BUN/creatini ne ratio 22 9-23 normal Not Available [facility] ([facility]) [address] [place], [address], 01/15/2025 11:05:31 01/15/2001/15/2025 BASIC METAB OLIC PANEL (8) sodium 140 mmol/ L 134-14 4 normal Not Available [facility] ([facility]) [address] [place], [address], 01/15/2025 11:05:31 01/15/2001/15/2025 BASIC METAB OLIC PANEL (8) potassium 4.0 mmol/ L 3.5-5. 2 normal Not Available [facility] ([facility]) [address] [place], [address], 01/15/2025 11:05:31 01/15/2001/15/2025 BASIC METAB OLIC PANEL (8) chloride 105 mmol/ L 96-106 normal Not Available [facility] ([facility]) [address] [place], [address], 01/15/2025 11:05:31 01/15/2001/15/2025 BASIC METAB OLIC PANEL (8) carbon dioxide, total 18 mmol/ L 20-29 below low normal Not Available [facility] ([facility]) [address] [place], [address], 01/15/2025 11:05:31 01/15/2001/15/2025 BASIC METAB OLIC PANEL (8) calcium 8.9 mg/dL 8.7-10 .2 normal Not Available [facility] ([facility]) [address] [place], [address], 01/15/2025 11:05:31 01/15/2001/15/2025 CK creatine kinase,total 103 U/L 32-182 normal Not Available [facility] ([facility]) [address] [facility], [place], [address], 01/15/2025 11:05:31 01/15/20 25 01/15/2025 AST (SGOT ) AST (SGOT) 22 IU/L 0-40 normal Not Available [facility] ([facility]) [address] [facility], [place], [address], 01/15/2025 11:05:32 01/15/20 25 01/15/2025 ALT (SGPT ) ALT (SGPT) 23 IU/L 0-32 normal Not Available [facility] ([facility]) [address] [facility], [place], [address], 01/15/2025 11:05:33 12/18/19 elect rocar diogr am No observ ation record ed. In-Office Order Internal Use Only DO Not Attach Compendium DO Not Attach Compendium, Do Not Delete/merge, [id number] 12/17/2022 14:57:49 12/18/19 23 12/17/2022 elect rocar diogr am No observ ation record ed. [email or web address] Not Available 2022 17:29:10 04/25/20 elect rocar diogr am No observ ation record ed. [email or web address] In-Office Order Internal Use Only DO Not Attach Compendium DO Not Attach Compendium, Do Not Delete/merge, [id number] 04/25/2023 10:24:39 04/25/20 23 04/25/2023 elect rocar diogr am No observ ation record ed. [email or web address] Not Available 2022 15:49:13 07/28/19 elect rocar diogr am No observ ation record ed. In-Office Order Internal Use Only DO Not Attach Compendium DO Not Attach Compendium, Do Not Delete/merge, [id number] 07/28/2023 13:53:39 07/29/19 24 07/28/2023 elect rocar diogr am No observ ation record ed. [email or web address] In-Office Order Internal Use Only DO Not Attach Compendium DO Not Attach Compendium, Do Not Delete/merge, [id number] 07/29/2023 09:02:08 07/30/19 24 07/28/2023 US, echoc ardio gram, trans thora cic, compl ete, w/ color flow No observ ation record ed. [email or web address] Not Available 08/25 21:11:48 01/26/20 24 [facility] rocar diogr am No observ ation record ed. [email or web address] In-Office Order Internal Use Only DO Not Attach Compendium DO Not Attach Compendium, Do Not Delete/merge, [id number] 01/26/2024 14:33:20 01/26/20 24 01/26/2024 [facility] rocar diogr am No observ ation record ed. [email or web address] Not Available 2023 15:49:23 08/03/19 [facility]ion record ed. [email or web address] In-Office Order Internal Use Only DO Not Attach Compendium DO Not Attach Compendium, Do Not Delete/merge, [id number] 08/03/2024 13:42:53 08/03/19 25 08/03/2024 [facility] karisar diogr am No observ ation record ed. BARCODE Not Available 2024 16:30:02 08/04/19 25 08/03/2024 US, echoc ardio gram, trans thora cic, compl ete, w/ color flow No observ ation record ed. [email or web address] Not Available 2024 09:27:40 Result Notes None recorded. 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 Please review these documents and add these problems to the patient's chart manually as needed. Problem Notes None recorded. Procedures Surgical History Date Name Laterality Status Provider Name and Address Organization Details Recorded Time 05/16/20 Coronary Stent Placement completed Julia Morillo [facility] 05/20/2022 10:23:16 hysterectomy completed Bhumika Ulchristeltrom [facility] 05/29/2022 09:42:49 Imaging Results None recorded. Procedure Notes None recorded. Medical Equipment None Reported. Allergies Allergen ID Allergen Name Allergen Category Reaction Reaction Severity Criticality Documentation Date Start Date Code Code System Note Provider Name and Address Organization Details Recorded Time 571679 Product containin g penicilli n (product) medicatio n Not available Not available Not available 05/29/2022 33040 8001 SNOMED Bhumika Ullstrom [facility] 2 09:32:54 166045 Substance with sulfonami de structure and antibacte rial mechanism of action (substanc e) medicatio n Not available Not available Not available 05/29/2022 01677 8003 SNOMED Bhumika Ullstrom null, [facility] 2 09:33:01 760921 Erythroci n medicatio n Not available Not available Not available 05/29/2022 73349 3 RxNorm Bhumika Ullstrom [facility] 2 09:33:16 245330 ampicilli n medicatio n Not available Not available Not available 05/29/2022 733 RxNorm Bhumika trujillo, [facility] 2 09:40:56 816877 POLLEN EXTR[employer] environme nt,medica tion Not available Not available Not available 12/17/2022 53072 6 RxNorm Shivam Lund ronnie, [place] - [facility] [place] 3 14:57:01 Medications Name Sig Start Date Stop Date Status Note LastModified by Organization Details LastModified Time prior authoriza tion approval active Entresto , 07/30/24 - 7 Not Available Not Available Not Available Prior Authoriza tion Request - Medicatio ns 06/18 completed Entresto 24-26mg Not Available Not Available Not Available atorvasta tin 80 mg tablet TAKE 1 TABLET BY MOUTH EVERYDAY AT BEDTIME active Not Available Not Available No t Available acetamino phen 325 mg tablet PLEASE SEE ATTACHED FOR DETAILED DIRECTIO NS active Not Available Not Available No t Available metoprolo l succinate ER 50 mg tablet,ex tended release 24 hr TAKE 1 TABLET BY MOUTH TWICE A DAY DIRECTED active Not Available Not Available No t Available hydrochlo rothiazid e 50 mg tablet TAKE 1 TABLET BY MOUTH EVERY DAY 06/11 completed Not Available Not Available Not Available lisinopri l 20 mg tablet Take 1 tablet every day by oral route as directed . 06/11 completed Not Available Not Available Not Available aspirin 81 mg tablet,de layed release Take 1 tablet every day by oral route. 07/31 completed Not Available Not Available Not Available lorazepam 0.5 mg tablet TAKE 1 TABLET ORALLY DAILY NEEDED FOR ANXIETY FOR 4 DAYS USED FOR FLIGHT TRAVEL active Not Available Not Available No t Available benzonata te 100 mg capsule TAKE 1 [...] t Available methimazo le 5 mg tablet TAKE 1 TABLET BY MOUTH FRIDAY-, AND A 1/2 TAB ON FRIDAY AND FRIDAY DIRECTED active Not Available Not Available No t Available aspirin 81 mg chewable tablet CHEW 1 TABLET EVERY DAY 06/12 completed Not Available Not Available Not Available metoprolo l succinate ER 25 mg tablet,ex tended release 24 hr Take 1 tablet twice a day by oral route at bedtime. active Not Available Not Available No t Available ibuprofen 600 mg tablet TAKE 1 TABLET BY MOUTH EVERY 6 HOURS NEEDED FOR PAIN FOR 7 DAYS W FOOD. ALTERNAT E WITH TYLENOL 08/03 completed Not Available Not Available Not Available albuterol sulfate HFA 90 mcg/actua tion aerosol inhaler INHALE 2 PUFFS EVERY 4 TO 6 HOURS NEEDED X14 DAYS 07/28 completed Not Available Not Available Not Available methimazo le 10 mg tablet TAKE 1/2 TABLET BY MOUTH DAILY 08/03 completed Not Available Not Available Not Available doxycycli ne hyclate 100 mg tablet TAKE 1 CAPSULE BY MOUTH EVERY 12 HOURS,X7 DAYS 08/03 completed Not Available Not Available Not Available Laxative (bisacody l) 5 mg tablet,de layed release TAKE 4 TABS AT NOON THE DAY BEFORE YOUR COLONOSC OPY 08/03 completed Not Available Not Available Not Available nitrofura ntoin monohydra te/macroc rystals 100 mg capsule 100 MG ORALLY 2 TIMES A DAY FOR 7 DAYS MUST ADMINIST ER WITH A MEAL/HANNA D 08/03 completed Not Available Not Available Not Available cholecalc iferol (vitamin D3) 1,250 mcg (50,000 unit) capsule TAKE 1 CAPSULE BY MOUTH WEEKLY active Not Available Not Available No t Available Gavilax 17 gram/dose oral powder 17 G BY MOUTH DAILY 08/03 completed Not Available Not Available Not Available Vitamin D3 125 mcg (5,000 unit) tablet TAKE 1 TABLET BY MOUTH EVERY DAY 08/23 completed Not Available Not Available Not Available Brilinta 90 mg tablet TAKE 1 TABLET BY MOUTH TWICE A DAY DIRECTED 01/25 completed Not Available Not Available Not Available Entresto 24 mg-26 mg tablet TAKE 1 TABLET BY MOUTH TWICE A DAY active Not Available Not Available No t Available aspirin 81 mg capsule Take 1 capsule every day by oral route as directed for 30 days. 06/12 completed Not Available Not Available Not Available Vitals Date Recorded Body height Provider Name an d Address Organization Details Last Updated DateTime 07/28/2023 165.1 cm [facility] 07/28/2023 13:53:12 Date Recorded Body mass index (BMI) Body weight Oxygen saturation Oxygen saturation in Arterial blood by Pulse oximetry Heart rate Systolic And Diastolic Provider Name and Address Organization Details Last Updated DateTime 4 29.6 kg/m2 27553.4 4 g 100 % 100 % 64 /min 136/80 mm[Hg] Amee Srivastava [facility]. 4 14:33:50 Date Recorded Body height Body mass index (BMI) Body weight Heart rate Systolic And Diastolic Provider Name and Address Organization Details Last Updated DateTime 08/03/2024 165.1 cm 30.5 kg/m2 49937.12 g 61 /min 138/80 mm[Hg] [facility] 08/03/2024 13:59:50 Date Recorded Body height Body mass index (BMI) Body weight Heart rate Systolic And Diastolic Provider Name and Address Organization Details Last Updated DateTime 12/17/2022 165.1 cm 29 kg/m2 12081.07 g 60 /min 130/80 mm[Hg] Shivam Ashely [facility] 12/17/2022 15:06:34 Date Recorded Body height Body mass index (BMI) Body weight Oxygen saturation Oxygen saturation in Arterial blood by Pulse oximetry Heart rate Systolic And Diastolic Provider Name and Address Organization Details Last Updated DateTime 4 165.1 cm 30.5 kg/m2 23201.1 2 g 100 % 100 % 67 /min 130/84 mm[Hg] [facility]. 14:42:08 Date Recorded Body height Body mass index (BMI) Body weight Heart rate Oxygen saturation Oxygen saturation in Arterial blood by Pulse oximetry Systolic And Diastolic Provider Name and Address Organization Details Last Updated DateTime 3 165.1 cm 30.2 kg/m2 18645.6 2 g 61 /min 100 % 100 % 126/80 mm[Hg] Apoorva Hernandez [facility] 10:36:45 Social History Question Answer Notes LastModified by [employer] Details LastModified Time Tobacco Smoking Status Never Smoker Bhumika Nevilleemily trujillo [facility] 05/29/2022 09:41:54 Do You Have An Advance Directive? No Information not available 08/27/2022 Are You Blind Or Do You Have Difficulty Seeing? No Information not available 08/27/2022 Is Blood Transfusion Acceptable In An Emergency? Yes Information not available 08/27/2022 What Is Your Level Of Caffeine Consumption? Occasional Information not available 08/27/2022 Are You Deaf Or Do You Have Serious Difficulty Hearing? No Information not available 08/27/2022 What Type Of Diet Are You Following? CARDIAC Information not available 05/29/2022 Which Of Your Hands Is Dominant? Right Information not available 08/27/2022 If Pulse Oximetry Was Done: Is The Patient's Sp02 Less Than 93% On Room Air? No Information not available 05/29/2022 What Was The Date Of Your Most Recent Tobacco Screening? 08/03/2024 Information not available 08/03/2024 Do You Have Any Pets? No Information not available 08/27/2022 What Is Your Relationship Status? Information not available 08/27/2022 Has Tobacco Cessation Counseling Been Provided? No [email or web address] Information not available 12/17/2022 Sex: Unknown Functional Status Question Answer Note LastModified by [employer] Details LastModified Time Do you use any illicit or recreational drugs? No Information not available 08/27/2022 Do you or have you ever used any other forms of tobacco or nicotine? No Information not available 08/27/2022 What is your level of alcohol consumption? None Information not available 05/29/2022 Are you currently employed? Yes Information not available 08/27/2022 Are you able to care for yourself independently? 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 Moderate Information not available 05/29/2022 Mental Status Question Answer Note LastModified by Organization D etails LastModified Time Do you feel stressed (tense, restless, nervous, or anxious, or unable to sleep at night)? [id number] Information not available 08/27/2022 Family History Relationship Description Onset Age of this Age Resolved Age Notes LastModified by Organization Details LastModified Time Mother Atrial fibrillation [email or web address] Not available 04/2025 13:16:51 Mother Family history of malignant neoplasm Not available 2022 14:02:03 Mother Hypertensive disorder Not available 2022 08:10:20 Mother Heart disease Not available 2022 14:02:03 Father Congestive heart failure [email or web address] Not available 2024 13:16:51 Father Hypertensive disorder Not available 2022 08:10:20 [...] PF 03/13/2024 completed Julia trujillo [facility] 09:47:58 Past Encounters Encounter ID Performer Location Encounter Start Date Encounter Closed Date Diagnosis/Indication Diagnosis SNOMED-CT Code Diagnosis ICD10 Code Diagnosis Note [id number] Kurtis Cruz MD [facility] [address] [place] [address] 05/29/2022 09:22:53 05/29/2022 11:27:45 Coronary arteriosclerosis 97532304 I25.10 Dilated cardiomyopathy 679689502 I42.0 Chest pain 74714387 R07. 2 Dyspnea 568566111 R06.02 Benign ess ential hypertension 9759598 I10 Mixed hyperlipidemia 267 989309 E78.2 [id number] Kurtis Cruz MD [address] [place] [address] 06/11/2022 06:44:52 06/11/2022 10:30:41 Benign essential hypertension 5838791 I10 Blood pressure is stable we will change lisinopril hydrochlor othiazide to Entresto with a 2-day washout.BM P in a week Mixed hyperlipidemia 267 703786 E78.2 Continue statin and aspirin Dilated cardiomyopathy 048431643 I42.0 CHF stage 3, requiring her to [...] BMP in 1 week.Saroj lopez to monitor symptoms.W e have given her a return to work letter from June 25 with limitation s of 5 hours a day.Rechec k echocardio gram in August 27, 2022 with followi up that same day with Dr Cruz [id number] MD TADEO Nelson_[address], [address] [place] [address] 08/27/2022 13:18:18 08/27/2022 15:25:40 Benign essential hypertension 4977219 I10 Mixed hyperlipidemia 267 010099 E78.2 Coronary arteriosclerosis 08878836 I25.10 Dyspnea 472069523 R06.02 Chest pain 03211794 R07. 2 Dilated cardiomyopathy 007904663 I42.0 [id number] MD Nba Nelson [address] [place] [address] 12/17/2022 14:31:17 12/17/2022 15:58:16 Benign essential hypertension 5488533 I10 Mixed hyperlipidemia 267 294313 E78.2 Coronary arteriosclerosis 35038596 I25.10 Chest pain 37132382 R07. 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 1009304 I25.2 [id number] Kurtis Cruz MD [facility] [address] [facility] [address] [place] [address] 04/25/2023 10:08:12 04/25/2023 11:18:16 Coronary arteriosclerosis 17501029 I25.10 - Continue Brilinta 90 mg twice a day and aspirin 81 mg daily- Continue atorvastat in 80 mg at bedtime- Continue Entresto 24/26 mg 1 tab twice a day- Decrease metoprolol succinate to 25 mg at bedtime Dilated cardiomyopathy 404279154 I42.0 - Continue Entresto 24/26 mg 1 tab twice a day- Decrease metoprolol succinate to 25 mg at bedtime Benign ess ential hypertension 0939514 I10 - Continue Entresto 24/26 mg 1 tab twice a day- Decrease metoprolol succinate to 25 mg at bedtime Mixed hyperlipidemia 267 224193 E78.2 - Continue atorvastat in 80 mg at bedtime 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 4114094 I25.2 [id number] Kurtis Cruz MD [facility] [address] [place] [address] [place] [address] 07/28/2023 13:23:52 07/28/2023 15:23:30 Coronary arteriosclerosis 64625745 I25.10 Benign ess ential hypertension 1462672 I10 Mixed hyperlipidemia 267 060458 E78.2 [id number] Kurtis Cruz MD [facility] [address] [facility] [address] [place] [address] 01/26/2024 14:09:04 01/26/2024 15:13:49 Benign essential hypertension 1257051 I10 Coronary arteriosclerosis 49055333 I25.10 Dilated cardiomyopathy 576012592 I42.0 Mixed hyperlipidemia 267 308637 E78.2 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 3260883 I25.2 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 5513876803 22999 I50.42 [id number] Kurtis Cruz MD [facility] [address] [facility] [address] [place] [address] 08/03/2024 13:16:49 08/03/2024 14:59:02 Benign essential hypertension 9758529 I10 Mixed hyperlipidemia 267 937276 E78.2 Coronary arteriosclerosis 92515578 I25.10 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 7225076 I25.2 Health Concerns Section Related Observation LastModified by Organization Detai ls LastModified Time None Recorded Concern Status LastModified by Organization Details LastModified Time None Recorded Advance Directives Directive N: Payers Insurance Date Sequence Insurance Name Policy Number Policy Vargas Covered Member ID Vargas Member ID Guarantor Name 07/23/2023 1 *SELF PAY* Rosa Wood Rosa Rodriguez 07/23/2023 1 [facility] Rosa Wood [id number] Rosa Rodriguez 07/05/[address] [place] [address] [id number] Rosa Wood [id number] Rosa Rodriguez 02/06/2023 PAYMENT PLAN Rosa Rodriguez 01/04/2025 1 [facility]: [facility] [id number] Karo Medina [id number] Rosa Rodriguez OBGyn Episode No OBEpisode recorded.
--- NOTE | 2025-01-18 16:16 | A.OFFPC_ITS ---
Vital Signs 01/18/25 16:19 Height 5 ft 5 in Weight 182 lb 6 oz BMI 30.3 BP 120/70 Blood Pressure Location Rt brachial Position Sitting Respiration 14 Pulse 71 Pulse Source Pulse Oximeter Temp 98.4 F Temp Source Oral Pulse Oximetry (%) 98 Oxygen Delivery Method Room Air Intake Visit Reasons: f/u HTN, chronic conditions Intake Note: patient is scheduled to follow up for htn and chronic conditions Concrete Paver Required: No Allergies ampicillin (AMPICILLIN) Allergy (Unknown, Verified 01/18/25 16:18) UNKNOWN, hives erythromycin base (ERYTHROMYCIN BASE) Allergy (Unknown, Verified 01/18/25 16:18) UNKNOWN Penicillins (PENICILLINS) Allergy (Unknown, Verified 01/18/25 16:18) UNKNOWN Sulfa (Sulfonamide Antibiotics) (SULFA (SULFONAMIDE ANTIBIOTICS)) Allergy (Unknown, Verified 01/18/25 16:18) UNKNOWN, rash Erythromycin Allergy (Unknown, Uncoded 10/21/23 16:08) rash Medication List - Last Reconciled 01/18/25 by Steve Hernadez MD aspirin 325 mg PO DAILY atorvastatin 80 mg PO BEDTIME cholecalciferol (vitamin D3) 1,250 mcg PO QWEEK 28 days lorazepam (Ativan) 0.5 mg PO DAILY PRN 4 days methimazole 5 mg PO DAILY metoprolol succinate ER 25 mg PO BEDTIME sacubitril-valsartan 24-26 mg (Entresto) 1 tab PO BID Tobacco use date assessed: 11/06/23 Dental Screening Dental Screen Date: 10/21/23 HPI f/u HTN, chronic conditions HPI Details 54 y/o female presents to f/u HTN, chron ic conditions. Blood pressure today 120/70, 71p. She is on metoprolol 25mg, Entresto. [facility] Medical History (Updated 01/18/25 @ 16:42 by Hal Vera) Essential hypertension Coronary artery disease Mixed hyperlipidemia Myocardial infarction Surgical History (Updated 11/14/23 @ 10:42 by Denise Metzger) Hx of colonoscopy Stented coronary artery History of hysterectomy Family History Father CHF (congestive heart failure) Mother Afib Other Mental health disorder Social History Housing: Condominium Alcohol intake: never Patient Tobacco Use Status: Never used Tobacco e-Cigarette/Vaping Use: Never Used Second Hand Smoke Exposure: No service: No Current occupational status: employed 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 occupational exposures/hazards: No Cognitive needs: No Hearing needs: No Vision needs: Yes Questionnaire Thrive Questionnaire Date Thrive assessed: 07/08/24 I am a: Patient What is your living situation today?: I have a steady place to live Within the past 12 months, did the food you bought not last and you didn't have the money to get more?: Never true Within the past 12 months, did you worry whether your food would run out before you got money to buy more?: Never true Do you have trouble paying for medicines?: No Do you have trouble getting transportation to medical appointments?: No Do you have trouble paying your heating and electricity bill?: No Do you have trouble taking care of your child, family member or friend?: No Do you have trouble with day-to-day activities such as bathing, preparing meals, shopping, managing finances, etc.?: No Are you currently unemployed and looking for a job?: No Are you interested in more education?: No Please select the resources that you would like help with: None Currently or been in a relationship where the following occur: No concerns re ported THRIVE Score: 0 AUDIT C Alcohol Use Questionnaire (AUDIT-C) 3. How often do you have six or more drinks on one occasion?: Never Total Score: 0 JOVANNI-7 AMB Questionnaire JOVANNI-7 Date JOVANNI - 7 assessed: 10/21/23 Source: Developed by Drs. Alan Srinivasan, Maile Mar, Pablo Rose and colleagues, with an educational pee from [employer]. Review of Systems Const Denies chills, Denies fatigue, Denies fever(s), Denies headache(s) and Denies weakness ENT Denies dizziness and Denies headache(s) Card Denies dyspnea Resp Denies cough, Denies dyspnea, Denies wheezing and Denies other (shortness of breath) Musc Denies numbness and Denies tingling Neuro Denies dizziness, Denies headache(s), Denies numbness, Denies tingling and Denies weakness Psych Denies anxiety and Denies depression Endo Denies fatigue Aller/Immun Denies wheezing Physical exam (Primary Care) Vital Signs: Last Vital Signs Temp 98.4 F 01/18/25 16:19 Pulse 71 01/18/25 16:19 Resp 14 01/18/25 16:19 BP 120/70 01/18/25 16:19 Pulse Ox 98 01/18/25 16:19 Oxygen Delivery Method Room Air 01/18/25 16:19 BMI result Body Mass Index 30.3 Tobacco/Smoking Status: Tobacco use Status Tobacco use date assessed 11/06/23 01/18/25 16:16 Patient Tobacco Use Status Never used Tobacco 01/18/25 16:16 e-Cigarette/Vaping Use Never Used 01/18/25 16:16 Thrive Assessment: Date of Thrive Assessment Date Thrive assessed 07/08/24 01/18/25 16:16 Currently or been in a relationship where the following occur: No concerns reported Const General: well developed; No acute distress Nutritional Appearance: well nourished Orientation/consciousness: patient oriented x3 HENMT Head: Yes normocephalic and Yes atraumatic Eyes General: appearance normal, both eyes and all related structures Pupils: Equal, round and reactive pupils present EOM: EOMs intact bilaterally Resp Effort & Inspection: normal respiratory effort Auscultation: clear to auscultation bilaterally Cardio Rate: regular rate Rhythm: regular rhythm Heart sounds: S1 normal heart sound present, S2 normal heart sound present, no gallops, no murmurs and no rubs Neuro General: patient oriented x3 and gait normal Cranial nerves: Yes Equal, round and reactive pupils present Psych Affect: normal affect Coding Level of Care Code Est Pt Level 5 (37579) Diagnoses Essential hypertension I10 Coronary artery disease I25.10 Hypercholesterolemia E78.00 Hyperthyroidism E05.90 Assessment & Plan Assessment & Plan (1) Essential hypertension: Code(s): I10 - Essential (primary) hypertension Category: Medical Plan: Blood pressure is well controlled. Goal is less than 130/80 Continue metoprolol and Entresto (2) Coronary artery disease: Code(s): I25.10 - Atherosclerotic heart disease of [place] coronary artery without angina pectoris Category: Medical Plan: LDL cholesterol is at goal of less than 70 She continues aspirin and atorvastatin She has an upcoming appointment with her telephone sales representative (3) Hypercholesterolemia: Code(s): E78.00 - Pure hypercholesterolemia, unspecified Category: Medical Plan: As above (4) Hyperthyroidism: Code(s): E05.90 - Thyrotoxicosis, unspecified without thyrotoxic crisis or storm Category: Medical Plan: She has an upcoming appointment with her necktie stitcher. They are considering a thyroid ablation For now, she continues methimazole Follow-up with endocrinology as recommended Orders: Orders Comprehensive [place]. Panel Fast Today Z00.00 - Encounter for general adult medical examination without abnormal findings UA CC w/rflx Micro + Cult Today Z00.00 - Encounter for general adult medical examination without abnormal findings Thyroid Stimulating Hormone Today E03.9 - Hypothyroidism, unspecified Hemoglobin A1c Today R73.01 - Impaired fasting glucose, Z00.00 - Encounter for general adult medical examination without abnormal findings Cortisol Random Today Z00.00 - Encounter for general adult medical examination without abnormal findings Insulin Today Z00.00 - Encounter for general adult medical examination without abnormal findings Vitamin B12 and Folate Today E53.8 - Deficiency of other specified B group vitamins, Z00.00 - Encounter for general adult medical examination without abnormal findings Complete Blood Count Auto Diff Today Z00.00 - Encounter for general adult medical examination without abnormal findings Lipid Panel Today Z00.00 - Encounter for general adult medical examination without abnormal findings Microalbumin, Random (w Creat) Today I10 - Essential (primary) hypertension Free T4 (Free Thyroxine) Today E03.9 - Hypothyroidism, unspecified Triiodothyronine T3 Total Today E03.9 - Hypothyroidism, unspecified Vitamin D 25-OH Total Today E55.9 - Vitamin D deficiency, unspecified, Z00.00 - Encounter for general adult medical examination without abnormal findings
[2025-01-18 16:19] VITALS: BP 120/70; PULSE 71; RESP 14; TEMP 36.9; O2SAT 98; BMI 30.3
== END 2025-01-18 17:03 | disposition home or self-care (01) ==
LOC: HO.HMCFM 15:23
PROVIDERS: PCP Family Medicine; Visit Provider Family Medicine
DX: I10 Essential (primary) hypertension (principal); I25.10 Atherosclerotic heart disease of native coronary artery without angina pectoris; E78.00 Pure hypercholesterolemia, unspecified; E05.90 Thyrotoxicosis, unspecified without thyrotoxic crisis or storm

== ENCOUNTER 2025-01-21 14:06 | Outpatient (REF) | payer BC, SELFPAY ==
--- OUTSIDE RECORDS SUMMARY | 2025-01-21 14:09 | XMS_ITS | Encounter Summary ---
Author Organization [facility] Address [address] [place] [address] Care Team Providers Care Geotechnical Engineering Technician Name Role Phone Steve Hernadez MD Primary Care Provider Encounter Details Date Type Department Care Team (Late st Contact Info) Description 07/13/2024 Lab Requisition [facility] [address] [place] [address] Nikos Fischer MD [address] [facility] [address] [place] [address] Other microscopic hematuria Social History Tobacco Use [...] 12:00 AM EST) Final Diagnosis Urine, Voided, ([id number]): Negative for high grade urothelial carcinoma. 07/21/2024 8:[address] [facility] Clinical Information Other microscopic hematuria R31.29 Urine cytology with reflex UroVysion (AUC/SHGUC) 07/21/2024 8:37 AM EST [facility] Gross Description A. Urine, Voided, ([id number]): Received one ThinPrep slide for cytology. 07/21/2024 8:37 AM [facility] Disclaimer Unless otherwise specified, all tissue is 10% NB formalin fixed and paraffin embedded. Technical pathology services provided by [facility] [address] [facility] [address] [place] [address] (CLIA #[id number]/Sa main Suárez MD, Lyft Driver) 07/21/2024 8:37 AM [facility] Tissue Urine specimen from urethra / Unknown 07/06/2024 07/13/2024 7:12 AM EST us Nikos Fischer MD LAB PATHOLOGY ORDERABLES Fi nal Result [facility] [address] [place] [address], documented in this encounter Visit Diagnoses Diagnosis Other microscopic hematuria documented in this encounter Care Teams Geotechnical Engineering Technician Relationship Specialty Start Date End Date Steve Hernadez MD [address] [place] [address] Dr Harish [place] PCP - General 04/23/23 documented as of this encounter
--- OUTSIDE RECORDS SUMMARY | 2025-01-21 14:09 | XMS_ITS | Clinical Summary ---
Author Organization [facility] Address [address] [place] [address] Care Team Providers Care Classics Professor Name Role Phone Lupillo Pineda Primary Care Provider [phone] Allergies Active Allergy Reactions Criticality Noted Date [...] age to complete this topic Care Teams Classics Professor Relationship Specialty Start Date End Date Lupillo Pineda [address] [place] [address] DR [place], [place] [address] PCP - General Internal Medicine 03/02/16
[2025-01-21 14:24] LABS: MANUAL DIFF FLAG NO
[2025-01-21 14:47] LABS: Hematocrit 38.5 % (37.0-47.0); Hemoglobin 13.3 g/dl (12.0-16.0); Imm Gran Abs Auto 0.02 X10*3/uL (0.00-0.03); Imm Gran Pct Auto 0.3 % (0.0-0.4); Lymphocytes Absolute Auto 2.7 X10*3/uL (1.2-4.9); Mean Corpuscular HGB Conc 34.5 g/dl (31.0-35.0); Mean Corpuscular Hemoglobin 30.6 pg (27.0-33.0); Mean Corpuscular Volume 88.7 fL (80.0-98.0); NRBC Abs Auto 0.000 X10*3/uL (0.0-0.012); NRBC Pct Auto 0.0 /100WBC (0.0-0.2); Platelet Count 164 X10*3/uL (160-400); Red Blood Count 4.34 X10*6/uL (4.20-5.50); White Blood Count 6.8 X10*3/uL (4.8-10.8)
[2025-01-21 14:58] LABS: Appearance Urine Cloudy; Glucose Urine UA Negative (Negative); PH 5.5 (5.0-9.0); Specific Gravity - Urine 1.025 (1.005-1.025); UMIC TRIGGER UACC YES
[2025-01-21 14:59] LABS: Hemoglobin A1C 124.2444 umol/L; Total Hemoglobin (HGBA1C) 3490.3370 umol/L
[2025-01-21 15:04] LABS: UACC Culture Trigger YES
[2025-01-21 15:22] LABS: Alanine Aminotransferase 34 U/L (0-31); Albumin Level 4.5 g/dL (3.5-5.0); Alkaline Phosphatase 64 U/L (39-117); Anion Gap 11 (12-20); Aspartate Amino Transferase 29 U/L (5-31); Blood Urea Nitrogen 14 mg/dL (9-16); Calcium 9.1 mg/dL (8.4-10.2); Carbon Dioxide 28 mmol/L (22-29); Chloride 108 mmol/L (96-108); Cholesterol 107 mg/dL (<200); Estimated Glomerular Filt Rate > 60; HDL Cholesterol 44 mg/dL (>40); Potassium 4.3 mmol/L (3.3-5.1); Sodium 143 mmol/L (135-145); Total Protein 7.3 g/dL (6.5-8.0); Triglycerides 79 mg/dL (<150)
[2025-01-21 15:24] LABS: Microalbum/Creatinine Ratio Ur 7.8 ug/mg cr (<30)
[2025-01-21 15:40] LABS: Free T4 (Free Thyroxine) 0.88 ng/dL (0.71-1.85); Thyroid Stimulating Hormone 2.35 uIU/mL (0.32-4.0)
[2025-01-21 15:46] LABS: Folate 13.1 ng/mL (> or = 4.0); Vitamin B12 233 pg/mL (200-900)
== END 2025-01-21 14:07 | disposition home or self-care (01) ==
LOC: HO.LAB 14:06
PROVIDERS: PCP Family Medicine; Visit Provider Family Medicine
DX: Z00.00 Encounter for general adult medical examination without abnormal findings (principal); I10 Essential (primary) hypertension; E53.8 Deficiency of other specified B group vitamins; E03.9 Hypothyroidism, unspecified; E55.9 Vitamin D deficiency, unspecified; R73.01 Impaired fasting glucose
CPT/HCPCS: 36415; 80053; 80061; 81001; 82043; 82306; 82533; 82570; 82607; 82746; 83036; 83525; 84439; 84443; 84480; 85025; 87086

== ENCOUNTER 2025-06-20 15:24 | Outpatient (REF) | payer BC, SELFPAY ==
--- NOTE | ~2025-06-20 | MM_ITS ---
EXAMINATION: MM SCREENING DIGITAL BREAST TOMOSYNTHESIS, BILATERAL CLINICAL INFORMATION: Screening. Asymptomatic. COMPARISON: Mammography: Comparison is made with available priors TECHNIQUE: Digital breast mammography with tomosynthesis is performed in both the craniocaudal and mediolateral oblique views along with computer-aided detection (CAD). FINDINGS: The breasts are heterogeneously dense, which may obscure small masses. There are no significant masses, abnormal calcifications, or other abnormalities. MM/MM tomosynthesis screening BI IMPRESSION: No mammographic evidence of malignancy. ASSESSMENT: BI-RADS Category 1: Negative RECOMMENDATION: Routine annual mammography screening. 1 year F/U This examination should not preclude the clinical evaluation of a suspicious palpable abnormality. This patient's information was entered into a reminder system with a target due date for their next mammogram. Electronically signed by: Torrie Diaz DO 06/22/2025 01:13 PM [facility]
--- OUTSIDE RECORDS SUMMARY | 2025-06-20 17:29 | XMS_ITS | Data Portability ---
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 And we could stop the Brilinta after [...] along with you. Not available 08/03/2024 16:15:16 01/25/2025 01/25/2025 IMPRESSION: Rosa continues to do well from a cardiology perspective. She has had no chest pain suggestive of recurrent angina and has no signs or symptoms of heart failure or arrhythmias. Her ejection fraction by echo remains in the low 50s and I have asked her to continue with metoprolol, Entresto and atorvastatin at their current dosages. Her cholesterol panel is favorable with total cholesterol 104 and LDL of 42. As always, it is a pleasure seeing patients along with you. Not available 01/25/2025 16:32:23 Plan of Treatment Reminders Order Date Submit Date Provider Last Modified By Organization Details Last Modified Time Details Appointments Any 15 2025 03:15P Bienvenido Cruz MD Not available Not available Not available Lab lipid panel, serum 2024 025 [facility], [facility]0 [facility] 1[address], Floor 1, [place], [address], 01/25/2025 17:40:29 AST/SGOT (aspartat e aminotran sferase), serum or plasma 2024 025 [facility], [facility]0 [facility] 1[address], [address] 1, [place], [address], 01/25/2025 17:40:29 ALT (alanine aminotran sferase), serum or plasma 2024 025 [facility] 1[address], [address] 1, [place], [address], 01/25/2025 17:40:29 BMP, serum or plasma 2024 025 [facility], [facility]0 [facility] [address], [place], [address], 01/25/2025 17:40:29 CK (creatine kinase), total, serum 2024 025 [facility], [facility]0 [facility] 1[address], [address] 1, [place], [address], 01/25/2025 17:40:29 BMP, serum or plasma 2024 025 TAMARA [facility], [address] [facility] [address], [place], [address], 09/11/2024 12:05:53 lipid panel, serum 2024 025 TAMARA [facility], [address] [facility] [address], [place], [address], 09/11/2024 12:05:54 ALT (alanine aminotran sferase), serum or plasma 2024 025 TAMARA [facility], [address] [facility] [address], [place], [address], 09/11/2024 12:05:56 AST/SGOT (aspartat e aminotran sferase), serum or plasma 2024 025 TAMARA [facility], [address] [facility] [address], [place], [address], 09/11/2024 12:05:55 CK (creatine kinase), total, serum 2024 025 TAMARA [facility], [address] [facility] 1[address], [address] 1, [place], [address], 09/11/2024 12:05:54 lipid panel, serum 2023 024 [...] The Location Of Their Choice, 07/22/2024 09:57:34 Referral None recorded. Procedures None recorded. Surgeries None recorded. Imaging electroca rdiogram 2024 025 [email or web address] In-Office Order, Internal Use Only DO Not Attach Compendium DO Not Attach Compendium, Do Not Delete/merge, [id number] 01/25/2025 17:40:29 electroca rdiogram 2024 025 [email or web address] In-Office Order, Internal Use Only DO Not Attach Compendium DO Not Attach Compendium, Do Not Delete/merge, [id number] 08/03/2024 16:31:49 US, echocardi ogram, transthor acic, complete, w/ color flow - 2D Color-kristopher w and Doppler with contrast if clinicall y indicated according to protocol. 2023 024 TAMARA Not available 08/04/2024 09:24:47 electroca rdiogram 2023 024 [email or web address] In-Office Order, Internal Use Only DO Not Attach Compendium DO Not Attach Compendium, Do Not Delete/merge, [id number] 01/26/2024 16:15:27 electroca rdiogram 2023 024 [email or web address] In-Office Order, Internal Use Only DO Not Attach Compendium DO Not Attach Compendium, Do Not Delete/merge, [id number] 07/28/2023 17:48:24 US, echocardi ogram, transthor acic, complete, w/ color flow - 2D Color-kristopher w and Doppler with contrast if clinicall y indicated according to protocol. 2022 024 TAMARA Not available 07/30/2023 11:21:55 electroca rdiogram 2022 023 [email or web address] In-Office Order, Internal Use Only DO Not Attach Compendium DO Not Attach Compendium, Do Not Delete/merge, [id number] 04/25/2023 11:22:13 Medication Orders None recorded. Patient TargetsNo targets recorded. Patient Instructions Encounter Date Encounter Id Patient Instructions Last Modified By Organization Details Last Modified Time 07/28/2023 [id number] high blood pressure: care instructions rwholey Not available 07/28/2023 17:48:24 learning about high blood pressure rwholey Not available 07/28/2023 17:48:24 01/26/2024 [id number] heart attack: care instructions rwholey Not available 01/26/2024 16:15:27 high blood pressure: care instructions rwholey Not available 01/26/2024 16:15:27 learning about high blood pressure rwholey Not available 01/26/2024 16:15:27 08/03/2024 [id number] heart attack: care instructions rwholey Not available 08/03/2024 16:31:49 high blood pressure: care instructions rwholey Not available 08/03/2024 16:31:49 learning about high blood pressure rwholey Not available 08/03/2024 16:31:49 01/25/2025 [id number] chest pain: care instructions rwholey Not available 01/25/2025 17:40:29 high blood pressure: care instructions rwholey Not available 01/25/2025 17:40:29 learning about high blood pressure rwholey Not available 01/25/2025 17:40:29 shortness of breath: care instructions rwholey Not available 01/25/2025 17:40:29 Reason for Referral None Reported. Results Created Date Observation Date Name Description Value Unit Range Abnormal Flag Note LastModifiedBy Organization Detail LastModifiedTime 07/27/19 25 07/28/2024 CHOL+ TRIG+ HDL+L DL-D cholesterol, total 113 mg/dL 100-19 9 normal Not Available [facility] ([facility]) [address], [place], [address], 07/28/2024 13:06:16 07/27/19 25 07/28/2024 CHOL+ TRIG+ HDL+L DL-D triglyceride s 69 mg/dL 0-149 normal Not Available [facility] ([facility]) [address] [place], [address], 07/28/2024 13:06:16 07/27/19 25 07/28/2024 CHOL+ TRIG+ HDL+L DL-D HDL cholesterol 49 mg/dL >39 normal Not Available [facility] ([facility]) [address] [place], [address], 07/28/2024 13:06:16 07/27/19 25 07/28/2024 CHOL+ TRIG+ HDL+L DL-D LDL chol. 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 Not Available [facility] ([facility]) [address] [place], [address], 07/28/2024 13:06:16 07/27/19 25 07/28/2024 BASIC METAB OLIC PANEL (8) glucose 83 mg/dL 70-99 normal Not Available [facility] ([facility]) [address] [place], [address], 07/28/2024 13:06:16 07/27/19 25 07/28/2024 BASIC METAB OLIC PANEL (8) BUN 12 mg/dL 6-24 normal Not Available [facility] ([facility]) [address] [place], [address], 07/28/2024 13:06:16 07/27/19 25 07/28/2024 BASIC METAB OLIC PANEL (8) creatinine 0.80 mg/dL 0.57-1 .00 normal Not Available [facility] ([facility]) [address] [facility] [place], [address], 07/28/2024 13:06:16 07/27/19 25 07/28/2024 BASIC METAB OLIC PANEL (8) eGFR 89 mL/mi n/1.7 3 >59 normal Not Available [facility] ([facility]) [address] [facility] [place], [address], 07/28/2024 13:06:16 07/27/19 25 07/28/2024 BASIC METAB OLIC PANEL (8) BUN/creatini ne ratio 15 9-23 normal Not Available [facility] ([facility]) [address] [facility] [place], [address], 07/28/2024 13:06:16 07/27/19 25 07/28/2024 BASIC METAB OLIC PANEL (8) sodium 141 mmol/ L 134-14 4 normal Not Available [facility] ([facility]) [address] [facility] [place], [address], 07/28/2024 13:06:16 07/27/19 25 07/28/2024 BASIC METAB OLIC PANEL (8) potassium 3.7 mmol/ L 3.5-5. 2 normal Not Available [facility] ([facility]) [address] [facility] [place], [address], 07/28/2024 13:06:16 07/27/19 25 07/28/2024 BASIC METAB OLIC PANEL (8) chloride 104 mmol/ L 96-106 normal Not Available [facility] ([facility]) [address] [facility] [place], [address], 07/28/2024 13:06:16 07/27/19 25 07/28/2024 BASIC METAB OLIC PANEL (8) carbon dioxide, total 22 mmol/ L 20-29 normal Not Available [facility] ([facility]) [address] [facility] [place], [address], 07/28/2024 13:06:16 07/27/19 25 07/28/2024 BASIC METAB OLIC PANEL (8) calcium 9.3 mg/dL 8.7-10 .2 normal Not Available [facility] ([facility]) [address] [place], [address], 07/28/2024 13:06:16 07/27/19 25 07/28/2024 CK creatine kinase,total 108 U/L 32-182 normal Not Available [facility] ([facility]) [address] [place], [address], 07/28/2024 13:06:16 07/27/19 25 07/28/2024 AST (SGOT ) AST (SGOT) 24 IU/L 0-40 normal Not Available [facility] ([facility]) [address] [place], [address], 07/28/2024 13:06:17 07/27/19 25 07/28/2024 ALT (SGPT ) ALT (SGPT) 25 IU/L 0-32 normal Not Available [facility] ([facility]) [address] [place], [address], 07/28/2024 13:06:17 09/11/19 25 09/11/2024 BASIC METAB OLIC PANEL (8) glucose 74 mg/dL 70-99 normal Not Available [facility] ([facility]) [address] [place], [address], 09/11/2024 12:05:53 09/11/19 25 09/11/2024 BASIC METAB OLIC PANEL (8) BUN 14 mg/dL 6-24 normal Not Available [facility] ([facility]) [address] [place], [address], 09/11/2024 12:05:53 09/11/19 25 09/11/2024 BASIC METAB OLIC PANEL (8) creatinine 0.84 mg/dL 0.57-1 .00 normal Not Available [facility] ([facility]) [address] [facility] [place], [address], 09/11/2024 12:05:53 09/11/19 25 09/11/2024 BASIC METAB OLIC PANEL (8) eGFR 84 mL/mi n/1.7 3 >59 normal Not Available [facility] ([facility]) [address] [facility] [place], [address], 09/11/2024 12:05:53 09/11/19 25 09/11/2024 BASIC METAB OLIC PANEL (8) BUN/creatini ne ratio 17 9-23 normal Not Available [facility] ([facility]) [address] [facility] [place], [address], 09/11/2024 12:05:53 09/11/19 25 09/11/2024 BASIC METAB OLIC PANEL (8) sodium 141 mmol/ L 134-14 4 normal Not Available [facility] ([facility]) [address] [facility] [place], [address], 09/11/2024 12:05:53 09/11/19 25 09/11/2024 BASIC METAB OLIC PANEL (8) potassium 4.2 mmol/ L 3.5-5. 2 normal Not Available [facility] ([facility]) [address] [facility] [place], [address], 09/11/2024 12:05:53 09/11/19 25 09/11/2024 BASIC METAB OLIC PANEL (8) chloride 104 mmol/ L 96-106 normal Not Available [facility] ([facility]) [address] [facility] [place], [address], 09/11/2024 12:05:53 09/11/19 25 09/11/2024 BASIC METAB OLIC PANEL (8) carbon dioxide, total 19 mmol/ L 20-29 below low normal Not Available [facility] ([facility]) [address] [facility] [place], [address], 09/11/2024 12:05:53 09/11/19 25 09/11/2024 BASIC METAB OLIC PANEL (8) calcium 8.8 mg/dL 8.7-10 .2 normal Not Available [facility] ([facility]) [address] [place], [address], 09/11/2024 12:05:53 09/11/19 25 09/11/2024 LIPID PANEL cholesterol, total 109 mg/dL 100-19 9 normal Not Available [facility] ([facility]) [address] [place], [address], 09/11/2024 12:05:54 09/11/19 25 09/11/2024 LIPID PANEL triglyceride s 92 mg/dL 0-149 normal Not Available [facility] ([facility]) [address] [place], [address], 09/11/2024 12:05:54 09/11/19 25 09/11/2024 LIPID PANEL HDL cholesterol 51 mg/dL >39 normal Not Available [facility] ([facility]) [address] [place], [address], 09/11/2024 12:05:54 09/11/19 25 09/11/2024 LIPID PANEL VLDL cholesterol praneeth 18 mg/dL 5-40 Not Available [facility] ([facility]) [address] [place], [address], 09/11/2024 12:05:54 09/11/19 25 09/11/2024 LIPID PANEL LDL chol calc ([facility]) 40 mg/dL 0-99 Not Available [facility] ([facility]) [address] [place], [address], 09/11/2024 12:05:54 09/11/19 25 09/11/2024 LIPID PANEL 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 Not Available [facility] ([facility]) [address] [place], [address], 09/11/2024 12:05:54 09/11/19 25 09/11/2024 CK creatine kinase,total 92 U/L 32-182 normal Not Available [facility] ([facility]) [address] [place], [address], 09/11/2024 12:05:54 09/11/19 25 09/11/2024 AST (SGOT ) AST (SGOT) 24 IU/L 0-40 normal Not Available [facility] ([facility]) [address] [place], [address], 09/11/2024 12:05:55 09/11/19 25 09/11/2024 ALT (SGPT ) ALT (SGPT) 26 IU/L 0-32 normal Not Available [facility] ([facility]) [address] [place], [address], 09/11/2024 12:05:55 01/15/20 25 01/15/2025 CHOL+ TRIG+ HDL+L DL-D cholesterol, total 104 mg/dL 100-19 9 normal Not Available [facility] ([facility]) [address] [place], [address], 01/15/2025 11:05:29 01/15/20 25 01/15/2025 CHOL+ TRIG+ HDL+L DL-D triglyceride s 71 mg/dL 0-149 normal Not Available [facility] ([facility]) [address] [place], [address], 01/15/2025 11:05:29 01/15/20 25 01/15/2025 CHOL+ TRIG+ HDL+L DL-D HDL cholesterol 50 mg/dL >39 normal Not Available [facility] ([facility]) [address] [place], [address], 01/15/2025 11:05:29 01/15/20 25 01/15/2025 CHOL+ TRIG+ HDL+L DL-D LDL chol. 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 Not Available [facility] ([facility]) [address] [place], [address], 01/15/2025 11:05:29 01/15/2001/15/2025 BASIC METAB OLIC PANEL (8) glucose 77 mg/dL 70-99 normal Not Available [facility] ([facility]) [address] [place], [address], 01/15/2025 11:05:31 01/15/2001/15/2025 BASIC METAB OLIC PANEL (8) BUN 15 mg/dL 6-24 normal Not Available [facility] ([facility]) [address] [place], [address], 01/15/2025 11:05:31 01/15/2001/15/2025 BASIC METAB OLIC PANEL (8) creatinine 0.67 mg/dL 0.57-1 .00 normal Not Available [facility] ([facility]) [address] [place], [address], 01/15/2025 11:05:31 01/15/2001/15/2025 BASIC METAB OLIC PANEL (8) eGFR 105 mL/mi n/1.7 3 >59 normal Not Available [facility] ([facility]) [address] [place], [address], 01/15/2025 11:05:31 01/15/2001/15/2025 BASIC METAB OLIC PANEL (8) BUN/creatini ne ratio 22 9-23 normal Not Available [facility] ([facility]) [address] [place], [address], 01/15/2025 11:05:31 01/15/2001/15/2025 BASIC METAB OLIC PANEL (8) sodium 140 mmol/ L 134-14 4 normal Not Available [facility] ([facility]) [address] [place], [address], 01/15/2025 11:05:31 01/15/2001/15/2025 BASIC METAB OLIC PANEL (8) potassium 4.0 mmol/ L 3.5-5. 2 normal Not Available [facility] ([facility]) [address] [place], [address], 01/15/2025 11:05:31 01/15/2001/15/2025 BASIC METAB OLIC PANEL (8) chloride 105 mmol/ L 96-106 normal Not Available [facility] ([facility]) [address] [place], [address], 01/15/2025 11:05:31 01/15/2001/15/2025 BASIC METAB OLIC PANEL (8) carbon dioxide, total 18 mmol/ L 20-29 below low normal Not Available [facility] ([facility]) [address] [place], [address], 01/15/2025 11:05:31 01/15/2001/15/2025 BASIC METAB OLIC PANEL (8) calcium 8.9 mg/dL 8.7-10 .2 normal Not Available [facility] ([facility]) [address] [place], [address], 01/15/2025 11:05:31 01/15/2001/15/2025 CK creatine kinase,total 103 U/L 32-182 normal Not Available [facility] ([facility]) [address] [place], [address], 01/15/2025 11:05:31 01/15/2001/15/2025 AST (SGOT ) AST (SGOT) 22 IU/L 0-40 normal Not Available [facility] ([facility]) [address] [facility], [place], [address], 01/15/2025 11:05:32 01/15/20 25 01/15/2025 ALT (SGPT ) ALT (SGPT) 23 IU/L 0-32 normal Not Available [facility] ([facility]) [address] [facility], [place], [address], 01/15/2025 11:05:33 04/25/20 23 elect rocar diogr am No observ ation record ed. [email or web address] In-Office Order Internal Use Only DO Not Attach Compendium DO Not Attach Compendium, Do Not Delete/merge, [id number] 04/25/2023 10:24:39 04/25/20 23 04/25/2023 elect rocar diogr am No observ ation record ed. [email or web address] Not Available 2022 15:49:13 07/28/19 24 elect rocar diogr am No observ ation record ed. [email or web address] In-Office Order Internal Use Only DO Not Attach Compendium DO Not Attach Compendium, Do Not Delete/merge, [id number] 07/28/2023 13:53:39 07/29/19 24 07/28/2023 [facility] rocar diogr am No observ ation record ed. [email or web address] In-Office Order Internal Use Only DO Not Attach Compendium DO Not Attach Compendium, Do Not Delete/merge, [id number] 07/29/2023 09:02:08 07/30/19 24 07/28/2023 US, echoc ardio gram, trans thora cic, compl ete, w/ color flow No observ ation record ed. [email or web address] Not Available 08/25 21:11:48 01/26/20 24 elect rocar diogr am No observ ation record ed. [email or web address] In-Office Order Internal Use Only DO Not Attach Compendium DO Not Attach Compendium, Do Not Delete/merge, [id number] 01/26/2024 14:33:20 01/26/20 24 01/26/2024 [facility] rocar diogr am No observ ation record ed. [email or web address] Not Available 2023 15:49:23 08/03/19 elect rocar diogr am No observ ation record ed. [email or web address] In-Office Order Internal Use Only DO Not Attach Compendium DO Not Attach Compendium, Do Not Delete/merge, [id number] 08/03/2024 13:42:53 08/03/19 25 08/03/2024 elect rocar diogr am No observ ation record ed. [email or web address] Not Available 2024 16:30:02 08/04/19 25 08/03/2024 US, echoc ardio gram, trans thora cic, compl ete, w/ color flow No observ ation record ed. [email or web address] Not Available 2024 09:27:40 01/26/20 [facility] rocar diogr am No observ ation record ed. [email or web address] In-Office Order Internal Use Only DO Not Attach Compendium DO Not Attach Compendium, Do Not Delete/merge, [id number] 01/25/2025 14:53:18 01/26/20 25 01/25/2025 [facility] rocar diogr am No observ ation record ed. [email or web address] Not Available 2024 17:22:59 Result Notes None recorded. 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 Please review these documents and add these problems to the patient's chart manually as needed. Problem Notes None recorded. Procedures Surgical History Date Name Laterality Status Provider Name and Address Organization Details Recorded Time 05/16/20 22 Coronary Stent Placement completed Juliadanny Morillo [facility] 05/20/2022 10:23:16 hysterectomy completed Bhumika Ullstrom [facility] 05/29/2022 09:42:49 Imaging Results None recorded. Procedure Notes None recorded. Medical Equipment None Reported. Allergies Allergen ID Allergen Name Allergen Category Reaction Reaction Severity Criticality Documentation Date Start Date Code Code System Note Provider Name and Address Organization Details Recorded Time 222606 Product containin g penicilli n (product) medicatio n Not available Not available Not available 05/29/2022 40019 8001 SNOMED Bhumika Ullstrom [facility] 2 09:32:54 131282 Substance with sulfonami de structure and antibacte rial mechanism of action (substanc e) medicatio n Not available Not available Not available 05/29/2022 76260 8003 SNOMED Bhumika Ullstrom [facility] 2 09:33:01 886642 Erythroci n medicatio n Not available Not available Not available 05/29/2022 88604 3 RxNorm Bhumika Ullstrom [facility] [place], [facility] 2 09:33:16 671433 ampicilli n medicatio n Not available Not available Not available 05/29/2022 733 RxNorm Bhumika Ullstrom [facility] 2 09:40:56 945636 POLLEN EXTRACTS environme nt,medica tion Not available Not available Not available 12/17/2022 16571 6 RxNorm Shivam Lund [facility] 3 14:57:01 Medications Name Sig Start Date Stop Date Status Note LastModified by Organization Details LastModified Time Prior Authoriza tion Request - Medicatio ns 06/18 completed Entresto 24-26mg Not Available Not Available Not Available prior authoriza tion approval active Entresto , 07/30/24 - 7 Not Available Not Available Not Available atorvasta tin 80 mg tablet TAKE 1 TABLET BY MOUTH EVERYDAY AT BEDTIME 2024 active Not Available Not Available Not Avai lable acetamino phen 325 mg tablet PLEASE SEE ATTACHED FOR DETAILED DIRECTIO NS 01/25 completed Not Available Not Available Not Available metoprolo l succinate ER 50 mg tablet,ex tended release 24 hr TAKE 1 TABLET BY MOUTH TWICE A DAY DIRECTED 01/25 completed Not Available Not Available Not Available hydrochlo rothiazid e 50 mg tablet [...] mg tablet TAKE 1 TABLET BY MOUTH MON-FRI AY AND 1/2 TAB ON SAT-SUN DIRECETD active Not Available Not Available No t Available aspirin 81 mg chewable tablet CHEW 1 TABLET EVERY DAY 06/12 completed Not Available Not Available Not Available metoprolo l succinate ER 25 mg tablet,ex tended release 24 hr Take 1 tablet every day by oral route at bedtime. active [...] capsule TAKE 1 CAPSULE BY MOUTH WEEKLY 01/25 completed Not Available Not Available Not Available Gavilax 17 gram/dose oral powder 17 [...] Updated DateTime 07/28/2023 165.1 cm Amelie Marcial MA - [facility] 07/28/2023 13:53:12 Date Recorded Body mass index (BMI) Body weight Oxygen saturation Heart rate Systolic And Diastolic Provider Name and Address Organization Details Last Updated DateTime 07/28/2023 29.6 kg/m2 01181.44 g 100 % 64 /min 136/80 mm[Hg] Amee Srivastava [facility] 4 14:33:50 Date Recorded Body height Body mass index (BMI) Body weight Heart rate Systolic And Diastolic Provider Name and Address Organization Details Last Updated DateTime 08/03/2024 165.1 cm 30.5 kg/m2 21577.12 g 61 /min 138/80 mm[Hg] [facility] 08/03/2024 13:59:50 Date Recorded Body height Body mass index (BMI) Body weight Oxygen saturation Heart rate Systolic And Diastolic Provider Name and Address Organization Details Last Updated DateTime 4 165.1 cm 30.5 kg/m2 85771.1 2 g 100 % 67 /min 130/84 mm[Hg] [facility] 4 14:42:08 Date Recorded Body height Body mass index (BMI) Body weight Oxygen saturation Heart rate Systolic And Diastolic Provider Name and Address Organization Details Last Updated DateTime 5 165.1 cm 30.6 kg/m2 38047 g 98 % 63 /min 116/80 mm[Hg] [facility] 5 15:02:56 Date Recorded Body height Body mass index (BMI) Body weight Heart rate Oxygen saturation Systolic And Diastolic Provider Name and Address Organization Details Last Updated DateTime 3 165.1 cm 30.2 kg/m2 14752.6 2 g 61 /min 100 % 126/80 mm[Hg] Apoorva Hernandez [facility] 3 10:36:45 Social History Question Answer Notes LastModified by Organizat ion Details LastModified Time Tobacco Smoking Status Never Smoker Bhumika trujillo [facility] 05/29/2022 09:41:54 Do You Have An Advance Directive? Yes [email or web address] Information not available 01/25/2025 Are You Blind Or Do You Have [...] Date Of Your Most Recent Tobacco Screening? 01/25/2025 [email or web address] Information not available 01/25/2025 Do You Have Any Pets? No Information not available 08/27/2022 What Is Your Relationship Status? Information not available 08/27/2022 Has Tobacco Cessation Counseling Been Provided? No [email or web address] Information not available 12/17/2022 Sex: Unknown Functional Status Question Answer Note LastModified by Organizat ion Details LastModified Time Do you use any [...] anxious, or unable to sleep at night)? [id number] Information not available 08/27/2022 Family History Relationship Description Onset Age of this Age Resolved Age Notes LastModified by Organization Details LastModified Time Mother Atrial fibrillation [email or web address] Not available 10/2024 14:33:06 Mother Family history of malignant neoplasm Not available 2022 14:02:03 Mother Hypertensive disorder Not available 2022 08:10:20 Mother Heart disease Not available 2022 14:02:03 Father Congestive heart failure [email or web address] Not available 2024 14:33:06 Father Hypertensive disorder Not available 2022 08:10:20 Father Heart disease Not available 2022 14:02:03 Father Diabetes mellitus Not available 2022 08:10:20 Father Myocardial infarction Not available 08/27 14:02:03 Father Kidney disease Not available 2022 14:02:03 Medical History Condition Response High Blood Pressure (Hypertension) Y Heart Attack (Myocardial Infarction) Y CAD (Coronary Artery Disease) Y Gynecological HistoryNo gynecological history recorded. Obstetrics History GPAL:G 0 P 0 0 0 0 Immunizations Vaccine Type Date Status Note Provider Nam e and Address Organization Details Recorded Time Influenza, MDCK, trivalent, PF 03/13/2024 completed Julia Morillo [facility] 03/15/2024 09:47:58 Past Encounters Encounter ID Performer Location Encounter Start Date Encounter Closed Date Diagnosis/Indication Diagnosis SNOMED-CT Code Diagnosis ICD10 Code Diagnosis IMO Codes Diagnosis Note [id number] Kurtis Cruz MD [facility] [address], [address] [place] [address] 05/29/2022 09:22:53 05/29/2022 11:27:45 Coronary arteriosclerosis 88646113 I25.10 Dilated cardiomyopathy 939999810 I42.0 Chest pain 90557971 R07. 2 Dyspnea 677126156 R06.02 Benign ess ential hypertension 6262727 I10 Mixed hyperlipidemia 267 373755 E78.2 [id number] MD SASHA [facility] [address] [place] [address] 06/11/2022 06:44:52 06/11/2022 10:30:41 Benign essential hypertension 5136161 I10 Blood pressure is stable we will change lisinopril hydrochlor othiazide to Entresto with a 2-day washout.BM P in a week Mixed hyperlipidemia 267 663487 E78.2 Continue statin and aspirin Dilated cardiomyopathy 826516435 I42.0 CHF stage 3, requiring her to [...] in 1 week.Saroj lopez to monitor symptoms.Jackie hopson have given her a return to work letter from June 25 with limitation s of 5 hours a day.Rechec k echocardio gram in August 27, 2022 with followi up that same day with Dr Cruz [id number] MD Nba Nelson [address] [address] 08/27/2022 13:18:18 08/27/2022 15:25:40 Benign essential hypertension 0891103 I10 Mixed hyperlipidemia 267 816052 E78.2 Coronary arteriosclerosis 35318711 I25.10 Dyspnea 240757238 R06.02 Chest pain 43374449 R07. 2 Dilated cardiomyopathy 272966778 I42.0 [id number] Kurtis Cruz MD [facility] [address] 12/17/2022 14:31:17 12/17/2022 15:58:16 Benign essential hypertension 0617986 I10 Mixed hyperlipidemia 267 447560 E78.2 Coronary arteriosclerosis 05517581 I25.10 Chest pain 85256247 R07. 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 5503686 I25.2 [id number] MD Nba Nelson [address] [place] [address] 04/25/2023 10:08:12 04/25/2023 11:18:16 Coronary arteriosclerosis 34686130 I25.10 - Continue Brilinta 90 mg twice a day and aspirin 81 mg daily- Continue atorvastat in 80 mg at bedtime- Continue Entresto 24/26 mg 1 tab twice a day- Decrease metoprolol succinate to 25 mg at bedtime Dilated cardiomyopathy 000688100 I42.0 - Continue Entresto 24/26 mg 1 tab twice a day- Decrease metoprolol succinate to 25 mg at bedtime Benign ess ential hypertension 0741376 I10 - Continue Entresto 24/26 mg 1 tab twice a day- Decrease metoprolol succinate to 25 mg at bedtime Mixed hyperlipidemia 267 200142 E78.2 - Continue atorvastat in 80 mg at bedtime 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 1566194 I25.2 [id number] Kurtis Cruz MD [facility] [address] [address] 07/28/2023 13:23:52 07/28/2023 15:23:30 Coronary arteriosclerosis 18690153 I25.10 Benign ess ential hypertension 6116651 I10 Mixed hyperlipidemia 267 111855 E78.2 [id number] Kurtis Cruz MD [facility] [address] [address] 01/26/2024 14:09:04 01/26/2024 15:13:49 Benign essential hypertension 6126623 I10 Coronary arteriosclerosis 76281795 I25.10 Dilated cardiomyopathy 500268907 I42.0 Mixed hyperlipidemia 267 018624 E78.2 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 7590981 I25.2 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 2 Benign ess ential hypertension 2733977 I10 Mixed hyperlipidemia 267 303076 E78.2 Health Concerns Section Related Observation LastModified by Organization Detai ls LastModified Time None Recorded Concern Status LastModified by Organization Details LastModified Time None Recorded Advance Directives Directive Y: Payers Insurance Date Sequence Insurance Name Policy Number Policy Vargas Covered Member ID Vargas Member ID Guarantor Name 01/25/2025 1 *SELF PAY* Rosa Owenss 01/25/2025 1 [facility] Rosa Owens [id number] Rosa Rodriguez 01/25/2025 1 [facility] [id number] Rosa Owens [id number] Rosa Owenss 02/06/2023 PAYMENT PLAN Rosa Owenss 04/26/2025 1 [facility]: O [facility] [id number] Karo Conner Adam [id number] [facility] 04/26/2025 2 [facility] (O) [id number] Karo Millersylvain [id number] [facility] Notes Date Note Type Note Provider Name [...] PASP 35, trivial pulmonic regurg. Kasey Mckee, INSURANCE EXECUTIVE- [address] [place], [address], [facility] - [facility] 04/27/2023 17:27:57 OBGyn Episode No OBEpisode recorded.
--- OUTSIDE RECORDS SUMMARY | 2025-06-20 17:30 | XMS_ITS | Clinical Summary ---
Author Organization [facility] Address [address] [place] [address] Care Team Providers Care Furniture Finisher Apprentice Name Role Phone Lupillo Pineda Primary Care Provider [phone] Allergies Active Allergy Reactions Criticality Noted Date [...] of 2) 02/04/2022 COVID-19 Vaccine (1 - 2024-2 6 season) 2025 Influenza (#1) 2025 RSV (1 - 1-dose 75+ series) 02/04/2047 HPV Vaccine (No Doses Required) Completed Hep A Aged Out No longer eligi ble based on patient's age to complete this topic Hib Aged Out No longer eligi ble based on patient's age to complete this topic Meningococcal ACWY Aged Out No longer eligible based on patient's age to complete this topic Care Teams Furniture Finisher Apprentice Relationship Specialty Start Date End Date Lupillo Pineda [address] [place] [address] [place] [address] PCP - General Internal Medicine 03/02/16
--- OUTSIDE RECORDS SUMMARY | 2025-06-20 17:30 | XMS_ITS | Clinical Summary ---
Author Organization [address] Address [address] [place] [phone] Phone Care Team Providers Care Faucet Polisher Name Role Phone Steve Hernadez MD Primary Care Provider Surgical History Surgery Date Site/Laterality Comments OTHER SURGICAL HISTORY PROCEDURE: HISTORICAL TOTAL HYSTERECTOMY W/O BSO; COMMENT: bleeding and fibroids OTHER SURGICAL HISTORY PROCEDURE: OR PATIENT HAS A CORONARY ARTERY STENT; COMMENT: s/p coronary dissection Medical History Medical History Date Comments Mixed hyperlipidemia DX:Mixed hy perlipidemia Essential (primary) hypertension DX:Essential (primary) hypertension 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 Family History Medical History Relation Name Comments Lung cancer Mother Breast cancer Neg Hx Colon cancer Neg Hx Ovarian cancer Neg Hx Pancreatic cancer Neg Hx Prostate cancer Neg Hx Uterine cancer Neg Hx Relation Name Status Comments Mother Social History Tobacco Use Types Packs/Day Years [...] Sign Reading Time Taken Comments Blood Pressure 110/76 07/25/2023 2:28 PM EST Pulse 78 07/25/2023 2:28 PM EST Temperature - - Respiratory Rate - - Oxygen Saturation - - Inhaled Oxygen Concentration - - Weight 81.6 kg (180 lb) 07/25/2023 2:28 PM EST Height 165.1 cm (5' 5 ) 07/25/2023 2:28 PM EST Body Mass Index 29.95 07/25/2023 2:28 PM EST Plan of Treatment Health Maintenance Due Date Last Done Comments Breast Cancer Screening 1972 Colorectal Cancer Screening: Colonoscopy 1972 DTaP,Tdap,and Td Vaccines (1 - Tdap) 02/04/1991 Hepatitis B Vaccines (1 of 3 - 19+ 3-dose series) 02/04/1991 Cervical Cancer Screening: P ap Smear 02/04/1993 Pneumococcal Vaccine: 50+ Ye ars (1 of 1 - PCV) 02/04/2022 Zoster Vaccines (1 of 2) 02/04/2022 HIV Screening 05/18/2024 Hepatitis C Screening 05/18/2024 Social Influencers of Health Screening 05/18/2024 Depression Screening 06/23/2024 COVID-19 Vaccine (1 - 2024-2 6 season) 2025 Influenza Vaccine (#1) 2025 RSV Immunization Adult Patie nts (1 - 1-dose 75+ series) 02/04/2047 HIB Vaccines Aged Out No longer eligi ble based on patient's age to complete this topic HPV Vaccines Aged Out No longer eligi ble based on patient's age to complete this topic Hepatitis A Vaccines Aged Out No long er eligible based on patient's age to complete this topic IPV Vaccines Aged Out No longer eligi ble based on patient's age to complete this topic MMR Vaccines Aged Out No longer eligi ble based on patient's age to complete this topic Meningococcal ACWY Vaccine Aged Out N o longer eligible based on patient's age to complete this topic Meningococcal B Vaccine Aged Out No l onger eligible based on patient's age to complete this topic RSV Immunization Patients Un luke 20 months Aged Out No longer eligible b ased on patient's age to complete this topic Varicella Vaccines Aged Out No longer eligible based on patient's age to complete this topic Insurance [facility] Care Teams Faucet Polisher Relationship Specialty Start Date End Date Steve Hernadez MD [address] [place] [address] Dr [place] PCP - General 04/23/23
--- OUTSIDE RECORDS SUMMARY | 2025-06-20 17:30 | XMS_ITS | Encounter Summary ---
Author Organization [facility] Address [address] [place] [address] Care Team Providers Care Plant Maintenance Engineer Name Role Phone Steve Hernadez MD Primary Care Provider Encounter Details Date Type Department Care Team (Late st Contact Info) Description 07/13/2024 Lab Requisition [facility] - Main Lab [address] [facility] [place] [address] Nikos Fischer MD [address] [facility] [address] [place] [address] Other microscopic hematuria Social History Tobacco Use [...] 12:00 AM EST) Final Diagnosis Urine, Voided, ([id number]): Negative for high grade urothelial carcinoma. 07/21/2024 8:37 AM EST [facility] at 0837 EST Clinical Information Other microscopic hematuria R31.29 Urine cytology with reflex UroVysion (AUC/SHGUC) 07/21/2024 8:37 AM EST [facility] Gross Description A. Urine, Voided, ([id number]): Received one ThinPrep slide for cytology. 07/21/2024 8:37 AM [facility] Disclaimer Unless otherwise specified, all tissue is 10% NB formalin fixed and paraffin embedded. Technical pathology services provided by [facility] [address] [place] [address] (CLIA #[id number]/Sa main Suárez MD, Slot Editor) 07/21/2024 8:37 AM [facility] Tissue Urine specimen from urethra / Unknown 07/06/2024 07/13/2024 7:12 AM EST us Nikos Fischer MD LAB PATHOLOGY ORDERABLES Fi nal Result [facility] [address] [place] [address], documented in this encounter Visit Diagnoses Diagnosis Other microscopic hematuria documented in this encounter Care Teams Plant Maintenance Engineer Relationship Specialty Start Date End Date Steve Hernadez MD [address] [place] [address] Dr Harish [place] PCP - General 04/23/23 documented as of this encounter
== END 2025-06-20 15:25 | disposition home or self-care (01) ==
LOC: HO.MAMMO 15:24
PROVIDERS: PCP Family Medicine; Visit Provider Family Medicine
DX: Z12.31 Encounter for screening mammogram for malignant neoplasm of breast (principal)
CPT/HCPCS: 77063; 77067

== ENCOUNTER → 2025-06-20 16:30 | Outpatient (BNV) | payer BC, SELFPAY | PROVIDERS: PCP Family Medicine; Visit Provider Internal Medicine | DX: Z12.31 Encounter for screening mammogram for malignant neoplasm of breast (principal) | CPT/HCPCS: 77063; 77067 ==